=== PATIENT | male | born 1935 | race Hispanic/Latino ===

== ENCOUNTER 2020-03-14 06:45 | Inpatient (IN) | payer OTHER ==
[2020-03-14] MEDS ORDERED: ONDANSETRON 4 MG/2 ML VIAL ONE (07:27)
[2020-03-14] MEDS ORDERED: NA CHLORIDE 0.9% 1,000 ML ONE (07:27)
[2020-03-14 07:48] LABS: Absolute Lymphocytes (CBC) 0.5 K/uL (0.7-4.9); Basophils % 0.3 % (0-1.3); Hematocrit 42.4 % (39.6-49.0); Lymphocytes % 6.5 % (15.3-44.8); MPV 8.5 fL (7.6-11.3); RBC Red Blood Cell Count 4.46 M/uL (4.33-5.43)
[2020-03-14 08:01] LABS: ALT/SGPT 16 U/L (12-78); AST/SGOT 16 U/L (15-37); Albumin 3.2 g/dL (3.4-5.0); Alkaline Phosphatase 65 U/L (45-117); BUN Blood Urea Nitrogen 13 mg/dL (7-18); Bicarbonate 22 mmol/L (21-32); Bilirubin Direct 0.4 mg/dL (0-0.2); Bilirubin Total 3.1 mg/dL (0.2-1.0); Glucose Level 120 mg/dL (74-106); Lipase 51 U/L (73-393); Protein, Total 6.7 g/dL (6.4-8.2); Sodium Level 129 mmol/L (136-145)
--- NOTE | 2020-03-14 09:18 | RAD REPORT ---
EXAM DESCRIPTION: CTAbdomen Pelvis W Contrast - 03/14/2020 8:44 am CLINICAL HISTORY: Abdominal pain. ABD PAIN COMPARISON: <Comparisons> TECHNIQUE: Biphasic CT imaging of the abdomen and pelvis was performed with 100 ml non-ionic IV cont rast. All CT scans are performed using dose optimization technique as appropriate and may include automated exposure control or mA/KV adjustment according to patient size. FINDINGS: Trace right pleural effusion. The liver, spleen, pancreas, adrenal glands and kidneys are within normal limits. Several dilated and thickened small bowel loops are seen in the central lower abdomen measuring up to 3 cm. No pneumatosis evident. Mild free fluid is seen in the abdomen and pelvis. No free air. No abs cess seen. The appendix is normal. Moderate stool is present in the colon. No evidence of significant lymphadenopathy. Bilateral fat containing inguinal hernias, slightly larger on the left. No suspicious bony findings. IMPRESSION: Several dilated and thickened small bowel loops in the mid and lower abdomen are noted. Primary differential consideration would include infectious or inflammatory enteritis versus early de veloping mechanical small-bowel obstruction. Mild free fluid is seen in the abdomen and pelvis with a trace right pleural effusion. Moderate retained stool throughout the colon.
[2020-03-14 09:24] LABS: Urine Blood NEGATIVE (NEG); Urine Glucose NEGATIVE (NEG); Urine Protein NEGATIVE (NEG)
--- NOTE | 2020-03-14 10:06 | ER ---
Nurse's Notes [facility] Name: Denny Longo Age: 84 yrs Sex: Male : 1935 Arrival Date: 03/14/2020 Time: 06:48 Bed 8 Private MD: Diagnosis: Other and unspecified noninfective gastroenteritis and colitis;Constipation, unspecified Presentation: 03/14 07:00 Chief complaint: Spouse and/or significant other states: He has been complaining that sg his stomach has been hurting him for several days, reports that it has also been giving him nausea, he is very hard of hearing so make sure that they speak to him loudly and slowly when hes in the back without me. Coronavirus screen: Proceed with normal triage. Ebola Screen: Patient negative for fever greater than or equal to 101.5 degrees Fahrenheit, and additional compatible Ebola Virus Disease symptoms Patient denies exposure to infectious person. Patient denies travel to an Ebola-affected area in the 21 days before illness onset. No symptoms or risks identified at this time. Initial Sepsis Screen: Does the patient meet any 2 criteria? No. Patient's initial sepsis screen is negative. Does the patient have a suspected source of infection? No. Patient's initial sepsis screen is negative. Risk Assessment: Do you want to hurt yourself or someone else? Patient reports no desire to harm self or others. Onset of symptoms was March 14, 2020. Care prior to arrival: None. Transition of care: patient was not received from another setting of care. 07:00 Acuity: SANTA 3 sg 07:00 Method Of Arrival: Ambulatory sg Historical: - Allergies: 07:44 No Known Allergies; sv - Home Meds: 07:44 amlodipine-benazepril 5-40 mg oral cap [Active]; metoprolol succinate 100 mg oral Tb24 sv [Active]; tamsulosin 0.4 mg oral cp24 [Active]; levothyroxine 25 mcg tab [Active]; AREDS 2 [Active]; Vitamin B-12 Oral [Active]; Vitamin D3 oral oral [Active]; - PMHx: 07:44 Hypertension; Thyroid problem; sv - Immunization history:: Adult Immunizations up to date. - Social history:: Smoking status: Patient denies any tobacco usage or history of. Smoking status: Patient/guardian denies using alcohol, street drugs, The patient lives with family. - Family history:: not pertinent. Screenin:45 Abuse screen: Denies threats or abuse. Denies injuries from another. Nutritional sv screening: No deficits noted. Tuberculosis screening: No symptoms or risk factors identified. Fall Risk None identified. Assessment: 07:25 General: Appears in no apparent distress. comfortable, well groomed, well developed, sv Behavior is calm, cooperative, appropriate for age. Pain: Complains of pain in epigastric area Pain currently is 5 out of 10 on a pain scale. Pain began 2-3 days ago. Is intermittent, Also complains of constipation. Neuro: Level of Consciousness is awake, alert, obeys commands, Oriented to person, place, time, situation, Moves all extremities. Full function Gait is steady, Speech is normal. Respiratory: Airway is patent Respiratory effort is even, unlabored, Respiratory pattern is regular, symmetrical. GI: Last BM was March 11, 2020. Abd is soft and non tender X 4 quads. Reports constipation, nausea, that his stomach was "sticking out" the other day but went back down. Derm: Skin is intact, Skin is pink, warm \\T\\ dry. Musculoskeletal: Range of motion: intact in all extremities. 08:50 Reassessment: Patient appears in no apparent distress at this time. No changes from sv previously documented assessment. Patient and/or family updated on plan of care and expected duration. Pain level reassessed. Patient is alert, oriented x 3, equal unlabored respirations, skin warm/dry/pink. 10:48 Reassessment: Patient appears in no apparent distress at this time. No changes from sv previously documented assessment. Patient and/or family updated on plan of care and expected duration. Pain level reassessed. Patient is alert, oriented x 3, equal unlabored respirations, skin warm/dry/pink. Vital Signs: 07:00 BP 161 / 76; Pulse 87; Resp 16; Temp 98; Pulse Ox 97% ; sv 07:30 BP 171 / 69; Pulse 71; Resp 16; Pulse Ox 98% ; sv 08:23 BP 170 / 70; Pulse 80; Resp 16; Pulse Ox 98% ; sv 09:04 BP 175 / 90; Pulse 94; Resp 16; Pulse Ox 99% ; sv 10:35 BP 188 / 78; Pulse 91; Resp 18; Pulse Ox 99% ; sv ED Course: 06:48 Patient arrived in ED. ag3 06:49 Arm band placed on. sg 07:07 Triage completed. sg 07:07 Judy Warren MD is Attending Physician. ma2 07:15 Charlene Franks, CHAY is Primary Nurse. sv 07:[address] Scan. sv 07:25 Patient has correct armband on for positive identification. Placed in gown. Bed in low sv position. Call light in reach. Pulse ox on. NIBP on. Door closed. Head of bed elevated. 07:25 Inserted saline lock: 20 gauge in right forearm, using aseptic technique. Blood sv collected. Flushed right forearm with 5 ml normal saline. 07:32 Basic Metabolic Panel Sent. sv 07:32 Hepatic Function Sent. sv 07:32 Lipase Sent. sv 08:[address] Scan. sv 08:44 CT Abd/Pelvis - IV Contrast Only In Process Unspecified. EDMS 08:44 CT completed. Patient tolerated procedure well. Patient moved back from CT. bq 10:05 Butch Masters MD is Hospitalizing Provider. ma2 10:15 Awaiting bed assignment. sv 10:47 No provider procedures requiring assistance completed. Patient admitted, IV remains in sv place. intact. Administered Medications: 07:31 Drug: NS 0.9% 1000 ml Route: IV; Rate: 1 bolus; Site: right forearm; sv 08:29 Follow up: Response: No adverse reaction; IV Status: Completed infusion; IV Intake: sv 1000ml 07:31 Drug: Zofran (Ondansetron) 4 mg Route: IVP; Site: right forearm; sv 08:29 Follow up: Response: No adverse reaction; Marked relief of symptoms sv 10:30 Drug: Rocephin 1 grams Route: IV; Rate: calculated rate; Site: right forearm; sv 10:32 Follow up: Response: No adverse reaction; IV Status: Completed infusion; IV Intake: 10mlsv 10:35 Drug: Flagyl 500 mg Volume: 100 ml; Route: IVPB; Rate: 200 ml/hr; Infused Over: 30 sv mins; Site: right forearm; 11:03 Follow up: Response: No adverse reaction; IV Status: Infusion continued upon admission sv Intake: 08:29 IV: 1000ml; Total: 1000ml. sv 10:32 IV: 10ml; Total: 1010ml. sv Outcome: 10:05 Decision to Hospitalize by Provider. ma2 10:47 Admitted to Med/surg accompanied by tech, via wheelchair, room 211, with chart, Report sv called to Elen CARTWRIGHT 10:47 Condition: stable 10:47 Instructed on the need for admit. 11:02 Patient left the ED. sv Signatures: Dispatcher [employer] Charlene Sahni RN RN sv Gay, Steven, RN RN sg Quilty, Betty bq Alzahri, Mohammad, MD MD vt2 Camryn Castle 3
--- NOTE | 2020-03-14 10:06 | EDPHYS ---
Physician Documentation [facility] Name: Denyn Longo Age: 84 yrs Sex: Male : 1935 Arrival Date: 03/14/2020 Time: 06:48 Bed 8 Private MD: ED Physician Judy Warren HPI: 03/14 10:00 This 84 yrs old Male presents to ER via Ambulatory with complaints of ma2 Abdominal Pain. 10:00 Associated signs and symptoms: Pertinent positives: constipation, Pertinent negatives: ma2 nausea and vomiting, blood in stools, fever, vomiting. The symptoms are described as crampy. Severity of pain: At its worst the pain was mild in the emergency department the pain is unchanged. The patient has not experienced similar symptoms in the past. Historical: - Allergies: 07:44 No Known Allergies; sv - Home Meds: 07:44 amlodipine-benazepril 5-40 mg oral cap [Active]; metoprolol succinate 100 mg oral Tb24 sv [Active]; tamsulosin 0.4 mg oral cp24 [Active]; levothyroxine 25 mcg tab [Active]; AREDS 2 [Active]; Vitamin B-12 Oral [Active]; Vitamin D3 oral oral [Active]; - PMHx: 07:44 Hypertension; Thyroid problem; sv - Immunization history:: Adult Immunizations up to date. - Social history:: Smoking status: Patient denies any tobacco usage or history of. Smoking status: Patient/guardian denies using alcohol, street drugs, The patient lives with family. - Family history:: not pertinent. ROS: 10:00 Constitutional: Negative for fever, chills, and weight loss. ma2 10:00 All other systems are negative. Exam: 10:00 Constitutional: This is a well developed, well nourished patient who is awake, alert, ma2 and in no acute distress. Chest/axilla: Normal chest wall appearance and motion. Nontender with no deformity. No lesions are appreciated. Cardiovascular: Regular rate and rhythm with a normal S1 and S2. No gallops, murmurs, or rubs. Normal PMI, no JVD. No pulse deficits. Respiratory: Lungs have equal breath sounds bilaterally, clear to auscultation and percussion. No rales, rhonchi or wheezes noted. No increased work of breathing, no retractions or nasal flaring. Abdomen/GI: Soft, non-tender, with normal bowel sounds. No distension or tympany. No guarding or rebound. No evidence of tenderness throughout. Skin: Warm, dry with normal turgor. Normal color with no rashes, no lesions, and no evidence of cellulitis. MS/ Extremity: Pulses equal, no cyanosis. Neurovascular intact. Full, normal range of motion. Vital Signs: 07:00 BP 161 / 76; Pulse 87; Resp 16; Temp 98; Pulse Ox 97% ; sv 07:30 BP 171 / 69; Pulse 71; Resp 16; Pulse Ox 98% ; sv 08:23 BP 170 / 70; Pulse 80; Resp 16; Pulse Ox 98% ; sv 09:04 BP 175 / 90; Pulse 94; Resp 16; Pulse Ox 99% ; sv 10:35 BP 188 / 78; Pulse 91; Resp 18; Pulse Ox 99% ; sv MDM: 07:07 Patient medically screened. ma2 10:00 Differential diagnosis: gastritis, gastroesophageal reflux disease, pancreatitis. Data ma2 reviewed: vital signs, nurses notes. Counseling: I had a detailed discussion with the patient and/or guardian regarding: the historical points, exam findings, and any diagnostic results supporting the discharge/admit diagnosis, the presence of at least one elevated blood pressure reading (>120/80) during this emergency department visit, the need for outpatient follow up. Response to treatment: the patient's symptoms have markedly improved after treatment. ED course: discussed with dr. dunlap who agree with plan to admit and re-evaluation and antibiotics he will see him . 10:12 ED course: patient had a smalll bowel movement, will admit for possible early partial ma2 small bowel obstruction discussed with dr. lott, i called dr. masters and left a voice note, called . 13:50 ED course: dr. masters did not call back, i called hospitalist oncall dr. carver who ma2 advised to admit to dr. Masters, dr. lott will see the patient as well . 03/14 07:08 Order name: Basic Metabolic Panel ma2 03/14 07:08 Order name: CBC with Diff; Complete Time: 09:33 nc2 03/14 07:08 Order name: Hepatic Function ma2 03/14 07:08 Order name: Lipase ma2 03/14 07:09 Order name: Basic Metabolic Panel; Complete Time: 09:33 EDMS 03/14 07:09 Order name: Liver (Hepatic) Function; Complete Time: 09:33 EDMS 03/14 07:09 Order name: Lipase; Complete Time: 09:33 EDMS 03/14 09:04 Order name: Urine Dipstick--Ancillary (enter results); Complete Time: 09:33 em1 03/14 10:13 Order name: Basic Metabolic Panel EDMS 03/14 10:13 Order name: Basic Metabolic Panel EDMS 03/14 10:13 Order name: Calcium Level EDMS 03/14 10:13 Order name: Calcium Level EDMS 03/14 10:13 Order name: CBC with Automated Diff EDMS 03/14 10:13 Order name: CBC with Automated Diff EDMS 03/14 07:08 Order name: IV Saline Lock; Complete Time: 07:32 ma2 03/14 07:08 Order name: Labs collected and sent; Complete Time: 07:32 ma2 03/14 07:08 Order name: Urine Dipstick-Ancillary (obtain specimen); Complete Time: 09:02 ma2 03/14 07:08 Order name: CT Abd/Pelvis - IV Contrast Only; Complete Time: 09:33 ma2 03/14 10:13 Order name: CONS Physician Consult EDWV 03/14 10:13 Order name: CONS Pharmacy Consult ED[facility] 03/14 10:13 Order name: Lipase ED[facility] 03/14 10:13 Order name: Lipase ED[facility] 03/14 10:13 Order name: Liver (Hepatic) Function EDWV 03/14 10:13 Order name: Liver (Hepatic) Function EDWV 03/14 10:13 Order name: Magnesium ED[facility] 03/14 10:13 Order name: Magnesium EDWV Administered Medications: 07:31 Drug: NS 0.9% 1000 ml Route: IV; Rate: 1 bolus; Site: right forearm; sv 08:29 Follow up: Response: No adverse reaction; IV Status: Completed infusion; IV Intake: sv 1000ml 07:31 Drug: Zofran (Ondansetron) 4 mg Route: IVP; Site: right forearm; sv 08:29 Follow up: Response: No adverse reaction; Marked relief of symptoms sv 10:30 Drug: Rocephin 1 grams Route: IV; Rate: calculated rate; Site: right forearm; sv 10:32 Follow up: Response: No adverse reaction; IV Status: Completed infusion; IV Intake: 10mlsv 10:35 Drug: Flagyl 500 mg Volume: 100 ml; Route: IVPB; Rate: 200 ml/hr; Infused Over: 30 sv mins; Site: right forearm; 11:03 Follow up: Response: No adverse reaction; IV Status: Infusion continued upon admission sv Disposition: 03/14/20 10:05 Hospitalization ordered by Butch Masters for Inpatient Admission. Preliminary diagnosis are Other and unspecified noninfective gastroenteritis and colitis, Constipation, unspecified. - Bed requested for Telemetry/MedSurg (Inpatient). - Status is Inpatient Admission. sv - Condition is Stable. - Problem is new. - Symptoms are unchanged. Signatures: Dispatcher [employer] EDMS Martina De Paz RN RN kl Verde, Stephanie, RN RN sv Gay, Steven, RN RN sg Alzahri, Mohammad, MD MD nc2 Corrections: (The following items were deleted from the chart) 10:33 10:05 Hospitalization Ordered by Butch Masters MD for Inpatient Admission. Preliminary kl diagnosis is Other and unspecified noninfective gastroenteritis and colitis; Constipation, unspecified. Bed requested for Telemetry/MedSurg (Inpatient). Status is Inpatient Admission. Condition is Stable. Problem is new. Symptoms are unchanged. ma2 11:02 10:33 03/14/2020 10:05 Hospitalization Ordered by Butch Masters MD for Inpatient sv Admission. Preliminary diagnosis is Other and unspecified noninfective gastroenteritis and colitis; Constipation, unspecified. Bed requested for Telemetry/MedSurg (Inpatient). Status is Inpatient Admission. Condition is Stable. Problem is new. Symptoms are unchanged. kl
[2020-03-14] MEDS ORDERED: ONDANSETRON 4 MG/2 ML VIAL IV PRN (10:08)
[2020-03-14] MEDS ORDERED: METRONIDAZOLE 500mg IVPB 500 MG/100 ML BAG IV ONE (10:33)
[2020-03-14] MEDS ORDERED: CEFTRIAXONE/SWI 1gm 1 GM/10 ML SYR ONE (10:33)
[2020-03-14] MEDS: INSULIN -REGULAR HUMAN 50 UNIT/0.5 ML ML SQ SCH ×2 (11:30→16:30)
[2020-03-14] MEDS ORDERED: METRONIDAZOLE 500mg IVPB 500 MG/100 ML BAG IV SCH ×2 (12:00→18:00)
[2020-03-14 13:38] VITALS: BMI 24.2
[2020-03-14] MEDS ORDERED: cloNIDine HCL 0.1 MG TAB PO PRN (15:55)
[2020-03-14] MEDS ORDERED: ACETAMINOPHEN 500 MG TAB ONE (16:34)
[2020-03-14] MEDS ORDERED: CEFOXITIN/SWI 2gm 2 GM/20 ML SYR IVP SCH (17:00)
--- NOTE | 2020-03-14 18:56 | RAD REPORT ---
EXAM DESCRIPTION: RAD - Abdomen W Erect - 03/14/2020 6:49 pm CLINICAL HISTORY: f/u SBO Pain COMPARISON: ABDOMEN W ERECT dated 10/08/2009; Abdomen Pelvis W Contrast dated 03/14/2020 FINDINGS: Several mildly dilated small bowel loops in the upper abdomen noted, appearing similar to recent CT study. No pneumoperitoneum seen. No pathologic calcification evident.
[2020-03-14] MEDS ORDERED: NACHLORIDE 0.45% 1,000 ML IV SCH (23:00)
[2020-03-15] MEDS: INSULIN -REGULAR HUMAN 50 UNIT/0.5 ML ML SQ SCH ×2 (05:47)
[2020-03-15 06:01] LABS: Hematocrit 38.3 % (39.6-49.0); MPV 8.8 fL (7.6-11.3)
[2020-03-15 06:02] LABS: Absolute Lymphocytes (CBC) 0.4 K/uL (0.7-4.9); Basophils % 0.2 % (0-1.3); Lymphocytes % 9.3 % (15.3-44.8)
[2020-03-15 06:31] LABS: ALT/SGPT 19 U/L (12-78); AST/SGOT 22 U/L (15-37); Albumin 2.8 g/dL (3.4-5.0); Alkaline Phosphatase 54 U/L (45-117); BUN Blood Urea Nitrogen 10 mg/dL (7-18); Bicarbonate 24 mmol/L (21-32); Bilirubin Direct 0.4 mg/dL (0-0.2); Bilirubin Total 1.9 mg/dL (0.2-1.0); Glucose Level 93 mg/dL (74-106); Lipase 147 U/L (73-393); Potassium 4.2 mmol/L (3.5-5.1); Protein, Total 5.8 g/dL (6.4-8.2); Sodium Level 128 mmol/L (136-145)
--- NOTE | 2020-03-15 06:55 | P.SSS ---
Patient History Date of Service: 03/15/20 Reason for admission: NO BOWEL MOVEMENT. History of Present Illness: MR. BARNES IS 84 YEARS OLD GM WITH HISTORY OF HTN AND COLON CANCER COMES WITH NO BM FOR 3 DAYS AND ABDOMEN DISTENSION. AFTER CT SCAN TODAY HE HADA BM. I SAW HIM LAST PM, FOUND THAT HE STILL HAD DISTENSION THAT WAS MILD BUT ABDOMEN IS SOFT. I ASKED NURSES TO REPEAT X RAY AND GIVE HIM SOAP SUDDS ENEMA. WITH THE ENEMA HE HAD 4 GOOD BM. HE WILL STAY OVERNIGHT AND AFTER VISIT WITH DR. DE LA O HE MAY GO HOME. Allergies No Known Allergies Allergy (Verified 03/14/20 11:26) Home medications list reviewed: Yes Home Medications: Amlodipine Bes/Olmesartan Med [Amlodipine-Olmesartan 5-40 mg] 1 tab PO DAILY 03/14/20 Cholecalciferol (Vitamin D3) [Vitamin D3] 1 tab PO DAILY 03/14/20 Cyanocobalamin (Vitamin B-12) [Vitamin B12] 1,000 mcg PO DAILY 03/14/20 Levothyroxine Sodium 1 tab PO AC 03/14/20 Metoprolol Succinate [Toprol Xl] 100 mg PO DAILY 03/14/20 Tamsulosin HCl [Flomax] 1 tab PO DAILY 03/14/20 - Past Medical/Surgical History Has patient received pneumonia vaccine in the past: Yes Diabetic: No -: htn -: HISTORY OF COLON CANCER, MANY YEARS AGO. SURGERY BY DR WILSON AND KURT . -: B12 DEFICIENCY -: OCULAR MYESTHENIA -: BPH -: AORTIC REGURGITATION- MILD -: HYPOTHYROIDISM -: PARTIAL COLECTOMY L SIDE- DR MAR- YEARS AGO. - Family History Father History Unknown: Yes - Social History Smoking Status: Never smoker Alcohol use: Yes CD- Drugs: No Caffeine use: Yes Place of Residence: Home Review of Systems 10-point ROS is otherwise unremarkable Physical Examination - Vital Signs Temperature: 97.0 F Blood Pressure: 140/62 Pulse: 79 Respirations: 14 Pulse Ox (%): 96 - Physical Exam General: Alert, In no apparent distress HEENT: Atraumatic, PERRLA, Mucous membr. moist/pink, EOMI, Sclerae nonicteric Neck: Supple, 2+ carotid pulse no bruit, No LAD, Without JVD or thyroid abnormality Respiratory: Clear to auscultation bilaterally, Normal air movement Cardiovascular: Regular rate/rhythm, Normal S1 S2 Gastrointestinal: Normal bowel sounds, No tenderness, No masses, No rebound, No guarding, Other (MILD UPPER ABDOMEN DISTENSION. ), Distended Musculoskeletal: No tenderness Integumentary: No rashes Neurological: Normal gait, Normal speech, Normal strength at 5/5 x4 extr, Normal tone, Normal affect, Other (SEVERE HEARING LOSS. WITH MY MASK ON HE IS NOT ABLE TO READ LIPS.) Lymphatics: No axilla or inguinal lymphadenopathy - Studies Laboratory Data (last 24 hrs) 03/14/20 07:25: WBC 7.5, Hgb 14.4, Hct 42.4, Plt Count 193 03/14/20 07:25: Sodium 129 L, Potassium 4.0, BUN 13, Creatinine 0.78, Glucose 120 H, Total Bilirubin 3.1 H, AST 16, ALT 16, Alkaline Phosphatase 65, Lipase 51 L - Diagnosis (Problem(s)) (1) Partial bowel obstruction Current Visit: Yes Status: Acute Plan: HE IS ALREADY HAVING GOOD BM. I WILL REDO X RAY TOAY. HE MAY GO HOME TODAY AFTER DR IRVING SEES HIM (2) Constipation Current Visit: Yes Status: Acute Plan: GOOD FIBER BUT GRINDED DIET. MIRLAAX DAILY. 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
[2020-03-15] MEDS ORDERED: HOME MED 1 EA UNK (Levothyroxine Sodium [Levothyroxine Sodium] 1 TAB) PO SCH (07:30)
[2020-03-15 07:56] LABS: Blood Morphology Comment NOT SEEN (NOT SEEN); Platelet Estimate ADEQ
--- NOTE | 2020-03-15 08:08 | RAD REPORT ---
EXAM DESCRIPTION: RAD - Abdomen W Erect - 03/15/2020 7:44 am CLINICAL HISTORY: f/u SBO COMPARISON: Abdomen W Erect dated 03/14/2020; Abdomen Pelvis W Contrast dated 03/14/2020 TECHNIQUE: Supine and upright views of the abdomen were obtained. FINDINGS: Air and stool are identifiable in nondilated colon. Small bowel loops are prominent but im proved. No free air or pneumatosis. No suspicious calcifications. IMPRESSION: Improvement in the small bowel obstruction pattern compared with the March 14 study.
[2020-03-15] MEDS ORDERED: CYANOCOBALAMIN 1000 MCG PO SCH (09:00)
[2020-03-15] MEDS ORDERED: OLMESARTAN MED PO SCH (09:00)
[2020-03-15] MEDS ORDERED: TAMSULOSIN HCL PO SCH (09:00)
[2020-03-15] MEDS ORDERED: HOME MED 1 EA UNK (Cholecalciferol (Vitamin D3) [Vitamin D3] 1 TAB) PO SCH (09:00)
[2020-03-15] MEDS ORDERED: AMLODIPINE BES PO SCH (09:00)
[2020-03-15] MEDS ORDERED: HOME MED 1 EA UNK (Metoprolol Succinate [Toprol Xl] 100 MG) PO SCH (09:00)
[2020-03-15 09:15] VITALS: TEMP 98.1
[2020-03-15 09:19] VITALS: O2SAT 97
[2020-03-15 10:39] VITALS: BP 113/64
== END 2020-03-15 11:20 | disposition home or self-care (01) | DRG 390 ==
LOC: ER 06:45 → ERHOLD 10:09 → 2ND 10:52
PROVIDERS: ADMIT Internal Medicine; ATTEND Internal Medicine
DX: K56.600 Partial intestinal obstruction, unspecified as to cause (principal); I10 Essential (primary) hypertension; K59.00 Constipation, unspecified; E03.9 Hypothyroidism, unspecified; H90.3 Sensorineural hearing loss, bilateral; Z85.038 Personal history of other malignant neoplasm of large intestine; Z79.890 Hormone replacement therapy; Z90.49 Acquired absence of other specified parts of digestive tract; Z79.899 Other long term (current) drug therapy
CPT/HCPCS: 36415; 74019; 74177; 80048; 80076; 81003; 82947; 83690; 83735; 85025; 94760; 96361; 96365; 96375; 99285; J0696; J2405; J7030; Q9967; U0002

== ENCOUNTER 2020-06-17 02:34 | Emergency (ER) | payer OTHER ==
[2020-06-17] MEDS ORDERED: NA CHLORIDE 0.9% 1,000 ML ONE (03:36)
[2020-06-17] MEDS ORDERED: MORPHINE 4 MG/ML SYR ONE (03:36)
[2020-06-17] MEDS ORDERED: ONDANSETRON 4 MG/2 ML VIAL ONE (03:36)
[2020-06-17 03:55] LABS: Absolute Lymphocytes (CBC) 0.4 K/uL (0.7-4.9); Basophils % 0.1 % (0-1.3); Hematocrit 42.8 % (39.6-49.0); Lymphocytes % 3.6 % (15.3-44.8); MPV 8.8 fL (7.6-11.3); RBC Red Blood Cell Count 4.55 M/uL (4.33-5.43)
[2020-06-17 04:18] LABS: Albumin 3.6 g/dL (3.4-5.0); Bilirubin Direct 0.4 mg/dL (0-0.2); Bilirubin Total 1.9 mg/dL (0.2-1.0); Potassium 4.1 mmol/L (3.5-5.1); Protein, Total 7.2 g/dL (6.4-8.2)
--- NOTE | 2020-06-17 04:53 | EDPHYS ---
Physician Documentation [facility] Name: Denny Longo Age: 84 yrs Sex: Male : 1935 Arrival Date: 06/17/2020 Time: 02:38 Bed 5 Private MD: ED Physician Tha Rodríguez HPI: 06/17 03:18 This 84 yrs old Male presents to ER via Ambulatory with complaints of pkl Abdominal Pain, Nausea. 03:18 The patient presents with abdominal pain in the upper abdomen. Onset: The pkl symptoms/episode began/occurred 3 hour(s) ago. Associated signs and symptoms: Pertinent positives: nausea. Historical: - Allergies: 02:52 No Known Allergies; rv - PMHx: 02:52 Hypertension; Thyroid problem; rv - Immunization history:: Adult Immunizations up to date. - Social history:: Smoking status: Patient denies any tobacco usage or history of. ROS: 03:18 Eyes: Negative for injury, pain, redness, and discharge, ENT: Negative for injury, pkl pain, and discharge, Neck: Negative for injury, pain, and swelling, Cardiovascular: Negative for chest pain, palpitations, and edema, Respiratory: Negative for shortness of breath, cough, wheezing, and pleuritic chest pain. 03:18 Abdomen/GI: Positive for abdominal pain, nausea, of the upper abdomen. 03:18 Back: Negative for acute changes. 03:18 : Negative for urinary symptoms. 03:18 MS/extremity: Negative for acute changes. 03:18 Skin: Negative for rash. 03:18 Neuro: Negative for altered mental status. Exam: 03:18 Head/Face: Normocephalic, atraumatic. Eyes: Pupils equal round and reactive to light, pkl extra-ocular motions intact. Lids and lashes normal. Conjunctiva and sclera are non-icteric and not injected. Cornea within normal limits. Periorbital areas with no swelling, redness, or edema. ENT: Nares patent. No nasal discharge, no septal abnormalities noted. Tympanic membranes are normal and external auditory canals are clear. Oropharynx with no redness, swelling, or masses, exudates, or evidence of obstruction, uvula midline. Mucous membranes moist. Neck: Trachea midline, no thyromegaly or masses palpated, and no cervical lymphadenopathy. Supple, full range of motion without nuchal rigidity, or vertebral point tenderness. No Meningismus. Chest/axilla: Normal chest wall appearance and motion. Nontender with no deformity. No lesions are appreciated. Cardiovascular: Regular rate and rhythm with a normal S1 and S2. No gallops, murmurs, or rubs. Normal PMI, no JVD. No pulse deficits. Respiratory: Lungs have equal breath sounds bilaterally, clear to auscultation and percussion. No rales, rhonchi or wheezes noted. No increased work of breathing, no retractions or nasal flaring. 03:18 Abdomen/GI: Palpation: soft, mild abdominal tenderness, in the right upper quadrant and left upper quadrant. 03:18 Back: Exam negative for acute changes. 03:18 : Exam negative for acute changes. 03:18 Musculoskeletal/extremity: Exam is negative for acute changes. 03:18 Skin: Exam negative for rash. 03:18 Neuro: Orientation: is normal, Mentation: is normal, Cranial nerves: grossly normal, Motor: is normal. Vital Signs: 02:50 BP 184 / 87; Pulse 93; Resp 18; Temp 97.6; Pulse Ox 100% ; Weight 63.5 kg; Height 5 ft. rv 6 in. (167.64 cm); Pain 8/10; 03:30 BP 160 / 64; Pulse 85; Resp 16; Pulse Ox 97% on R/A; rv 04:00 BP 141 / 53; Pulse 77; Resp 16; Pulse Ox 98% on R/A; rv 04:42 BP 159 / 72; Pulse 78; Resp 17; Pulse Ox 100% ; rv 02:50 Body Mass Index 22.60 (63.50 kg, 167.64 cm) rv MDM: 02:45 Patient medically screened. pkl 04:46 Data reviewed: vital signs, nurses notes, lab test result(s), radiologic studies, CT pkl scan. ED course: Patient feeling better. Abdominal pain resolved. Discussed lab. and CT Scan results with patient and . Patient does not want to be admitted at this time. Want to go home and follow up with Dr. Masters. Advised to return if abdominal pain recurs or is worse. Patient understood instructions. Patient sign AMA. 06/17 03:17 Order name: Basic Metabolic Panel; Complete Time: 04:44 pkl 06/17 03:17 Order name: CBC with Diff; Complete Time: 05:34 pkl 06/17 03:17 Order name: Hepatic Function; Complete Time: 04:44 pkl 06/17 03:17 Order name: Lipase; Complete Time: 04:44 pkl 06/17 03:17 Order name: Creatinine, Serum pkl 06/17 03:46 Order name: CREATININE WHOLE BLOOD; Complete Time: 03:56 EDMS 06/17 03:17 Order name: IV Saline Lock; Complete Time: 03:34 pkl 06/17 03:17 Order name: Labs collected and sent; Complete Time: 03:45 pkl 06/17 03:17 Order name: CT Abd/Pelvis - IV Contrast Only pkl 06/17 04:11 Order name: Manual Differential; Complete Time: 05:34 EDMS Administered Medications: 03:33 Drug: NS 0.9% 1000 ml Route: IV; Rate: 125 ml/hr; Site: right antecubital; rv 03:33 Drug: morphine 4 mg {Note: RASS, 0.} Route: IVP; Site: right antecubital; rv 04:45 Follow up: Response: No adverse reaction; Marked relief of symptoms; Pain is decreased; rv RASS: Alert and Calm (0) 03:33 Drug: Zofran (Ondansetron) 4 mg Route: IVP; Site: right antecubital; rv 04:44 Follow up: Response: No adverse reaction rv Disposition: 06/17/20 04:52 Patient has left against medical advice. Impression: Abdominal pain. Low grade partial small bowel obstruction versus ileus. Cholelithiasis. - Patients states they are going to Home. - Condition is Stable. - Prescriptions for Zofran 4 mg Oral Tablet - take 1 tablet by ORAL route every 12 hours As needed; 10 tablet. Follow up: Butch Masters MD; When: 1 - 2 days; Reason: Re-evaluation by your physician. - Problem is new. - Symptoms have improved. Signatures: Dispatcher [employer] EDMS Tha Rodríguez MD MD pkl Nick Grayson, RN RN rv Corrections: (The following items were deleted from the chart) 04:54 04:52 06/17/2020 04:52 Patients has left against medical advice. Patient states they pkl are going to Home. Condition is Stable. Follow up: Butch Masters; When: 1 - 2 days; Reason: Re-evaluation by your physician. Problem is new. Symptoms have improved. pkl 04:57 04:54 06/17/2020 04:52 Patients has left against medical advice. Impression: Abdominal pkl pain. Low grade partial small bowel obstruction versus ileus. Patient states they are going to Home. Condition is Stable. Follow up: Butch Masters; When: 1 - 2 days; Reason: Re-evaluation by your physician. Problem is new. Symptoms have improved. pkl 05:02 04:57 06/17/2020 04:52 Patients has left against medical advice. Impression: Abdominal rv pain. Low grade partial small bowel obstruction versus ileus. Cholelithiasis. Patient states they are going to Home. Condition is Stable. Prescriptions for Zofran 4 mg Oral Tablet - take 1 tablet by ORAL route every 12 hours As needed; 10 tabletFollow up: Butch Masters; When: 1 - 2 days; Reason: Re-evaluation by your physician. Problem is new. Symptoms have improved. pkl
--- NOTE | 2020-06-17 04:53 | ER ---
Nurse's Notes [facility] Name: Denny Longo Age: 84 yrs Sex: Male : 1935 Arrival Date: 06/17/2020 Time: 02:38 Bed 5 Private MD: Diagnosis: Abdominal pain. Low grade partial small bowel obstruction versus ileus. Cholelithiasis Presentation: 06/17 02:50 Chief complaint: Patient states: undescribable pain, epigastric area, 8/10. non rv radiating. with nausea. without vomiting, diarrhea, constipation. able to eat and drink. Coronavirus screen: At this time, the client does not indicate any symptoms associated with coronavirus-19. Ebola Screen: No symptoms or risks identified at this time. Initial Sepsis Screen: Does the patient meet any 2 criteria? No. Patient's initial sepsis screen is negative. Does the patient have a suspected source of infection? No. Patient's initial sepsis screen is negative. Risk Assessment: Do you want to hurt yourself or someone else? Patient reports no desire to harm self or others. Onset of symptoms was June 17, 2020 at 00:00. 02:50 Method Of Arrival: Ambulatory rv 02:50 Acuity: SANTA 3 rv Triage Assessment: 02:52 General: Appears comfortable, Behavior is calm, cooperative. Pain: Complains of pain in rv epigastric area Pain does not radiate. Pain currently is 8 out of 10 on a pain scale. EENT: No signs and/or symptoms were reported regarding the EENT system. Neuro: Level of Consciousness is awake, alert, obeys commands, Oriented to person, place, time, situation. Cardiovascular: Patient's skin is warm and dry. Respiratory: Airway is patent. GI: Abdomen is flat, non-distended. Derm: Skin is intact. Historical: - Allergies: 02:52 No Known Allergies; rv - PMHx: 02:52 Hypertension; Thyroid problem; rv - Immunization history:: Adult Immunizations up to date. - Social history:: Smoking status: Patient denies any tobacco usage or history of. Screenin:53 Abuse screen: Denies threats or abuse. Denies injuries from another. Nutritional rv screening: No deficits noted. Tuberculosis screening: No symptoms or risk factors identified. Fall Risk None identified. Assessment: 02:53 GI: Bowel sounds present X 4 quads. Abd is soft and non tender X 4 quads. rv 04:43 Reassessment: PATIENT FEELING BETTER. PAIN IS DECREASED. DR ERVIN EXPLAINED THE TEST rv RESULTS TO THE PATIENT AND FAMILY. VERBALIZED UNDERSTANDING. Patient states feeling better. Patient states symptoms have improved. Vital Signs: 02:50 BP 184 / 87; Pulse 93; Resp 18; Temp 97.6; Pulse Ox 100% ; Weight 63.5 kg; Height 5 ft. rv 6 in. (167.64 cm); Pain 8/10; 03:30 BP 160 / 64; Pulse 85; Resp 16; Pulse Ox 97% on R/A; rv 04:00 BP 141 / 53; Pulse 77; Resp 16; Pulse Ox 98% on R/A; rv 04:42 BP 159 / 72; Pulse 78; Resp 17; Pulse Ox 100% ; rv 02:50 Body Mass Index 22.60 (63.50 kg, 167.64 cm) rv ED Course: 02:38 Patient arrived in ED. cl3 02:39 Nick Grayson, CHAY is Primary Nurse. rv 02:45 Tha Ervin MD is Attending Physician. pkl 02:52 Triage completed. rv 02:53 Arm band placed on right wrist. Patient placed in the treatment room, on a stretcher, rv Patient notified of wait time. 02:53 Patient has correct armband on for positive identification. Pulse ox on. NIBP on. rv 03:34 Initial lab(s) drawn, by me, sent to lab. Inserted saline lock: 20 gauge in right rv antecubital area, using aseptic technique. Blood collected. 04:03 CT Abd/Pelvis - IV Contrast Only In Process Unspecified. EDMS 04:52 Butch Masters MD is Referral Physician. pkl 05:01 No provider procedures requiring assistance completed. IV discontinued, intact, rv bleeding controlled, No redness/swelling at site. Pressure dressing applied. Administered Medications: 03:33 Drug: NS 0.9% 1000 ml Route: IV; Rate: 125 ml/hr; Site: right antecubital; rv 03:33 Drug: morphine 4 mg {Note: RASS, 0.} Route: IVP; Site: right antecubital; rv 04:45 Follow up: Response: No adverse reaction; Marked relief of symptoms; Pain is decreased; rv RASS: Alert and Calm (0) 03:33 Drug: Zofran (Ondansetron) 4 mg Route: IVP; Site: right antecubital; rv 04:44 Follow up: Response: No adverse reaction rv Outcome: 05:02 AMA AMA form signed rv 05:02 Condition: improved 05:02 Discharge instructions given to patient, family, Instructed on discharge instructions, follow up and referral plans. medication usage, Demonstrated understanding of instructions, follow-up care, medications, Prescriptions given X 1. 05:02 Patient left the ED. rv Signatures: Dispatcher [employer] EDTha Bernstein MD MD pkl Nick Grayson RN RN Thomas Robbins cl3
[2020-06-17 04:58] LABS: Blood Morphology Comment NOT SEEN (NOT SEEN); Platelet Estimate ADEQ
[2020-06-17 05:09] VITALS: TEMP 97.6
[2020-06-17 05:12] VITALS: BP 159/72; O2SAT 100
--- NOTE | 2020-06-17 10:45 | RAD REPORT ---
EXAM DESCRIPTION: CT - Abdomen Pelvis W Contrast - 06/17/2020 7:07 am ADDENDUM #1 Addendum: Prior CT dated March 14, 2020 available for review. Soft tissue density medial to the right k [place]ney on the current study is decreased in size from March 14, 2020. On the prior exam, it measured 3.5 x 2.4 x 3.1 cm, currently 2.9 x 1.7 x 2.7 cm. Suspect this represents an enlarged lymph node. Electronically signed by: Charlene Chris MD 06/17/2020 7:38 AM CDT End of Addendum EXAM: CT Abdomen and Pelvis With Intravenous Contrast CLINICAL HISTORY: The patient is 84 years old and is Male; ABD PAIN TECHNIQUE: Axial computed tomography images of the abdomen and pelvis with intravenous contrast. S agittal and coronal reformatted images were created and reviewed. This CT exam was performed using one or more of the following dose reduction techniques: automated exposure control, adjustment of t he mA and/or kV according to patient size, and/or use of iterative reconstruction technique. COMPARISON: No relevant prior studies available. FINDINGS: Lung bases: Unremarkable. No mass. No consolidation. ABDOMEN: Liver: Unremarkable. No mass. Gallbladder and bile ducts: Cholelithiasis. No CT evidence of cholecystitis. No ductal dilation. Pancreas: No findings to suggest acute pancreatitis. No mass visualized. No ductal dilation. Spleen: Unremarkable. No splenomegaly. Adrenals: Unremarkable. No mass. Kidneys and ureters: Unremarkable. No solid mass. No hydronephrosis. Stomach and bowel: Colonic diverticulosis. Previous rectal resection/anastomosis. Stomach is mildly distended with fluid. Multiple mildly distended, fluid-filled small bowel loops. There is equivocal small bowel wa ll thickening in the pelvis at the transition zone in the deep pelvis. PELVIS: Appendix: The visualized appendix is normal. No pericecal inflammation to suggest acute appendic itis. Bladder: Unremarkable. No mass. Reproductive: Enlarged prostate gland. ABDOMEN and PELVIS: Intraperitoneal space: Small amount of free fluid in the pelvis. No free air. No abscess. Bones/joints: Degenerative changes in the spine and SI joints. No acute fracture. No dislocation. Soft tissues: Bilateral inguinal hernias containing fat only. No evidence of edema/incarceration . Vasculature: Unremarkable. No abdominal aortic aneurysm. Lymph nodes: 2.9 x 1.7 x 2.9 cm soft tissue density, medial to the right kidney, possibly enlarg ed lymph node. IMPRESSION: 1. Low-grade partial small bowel obstruction versus ileus. 2. Cholelithiasis. No CT evidence of cholecystitis. 3. Colonic diverticulosis. Previous rectal resection/anastomosis. 4. Enlarged prostate gland. 5. 2.9 x 1.7 x 2.9 cm soft tissue density, medial to the right kidney, possibly enlarged lymph node . Prior CT abdomen pelvis from March 14, 2020 not available for comparison at this time. An addendum wi ll be issued, if/when the prior images are available for review. Electronically signed by: Charlene Chris MD 06/17/2020 4:27 AM CDT Due to temporary technical issues with the PACS/Fluency reporting system, reports are being signed by the in house radiologist without review as a courtesy to ensure prompt reporting. The interpreting r adiologist is fully responsible for the content of the report.
== END 2020-06-17 05:02 | disposition left against medical advice (07) ==
LOC: ER 02:34
DX: K80.20 Calculus of gallbladder without cholecystitis without obstruction (principal); K56.600 Partial intestinal obstruction, unspecified as to cause; K56.7 Ileus, unspecified; I10 Essential (primary) hypertension
CPT/HCPCS: 85025; 80048; 36415; 82565; 80076; 83690; 74177; 96375; 96374; 99284; Q9967; J7030; J2405

== ENCOUNTER 2020-10-30 09:28 | Inpatient (IN) | payer OTHER ==
--- NOTE | 2020-10-30 10:22 | ER ---
Nurse's Notes [facility] Name: Denny Longo Jr Age: 85 yrs Sex: Male : 1935 Arrival Date: 10/30/2020 Time: 09:29 Bed Direct Admit Private MD: Diagnosis: Dehydration Presentation: 10/30 10:15 Chief complaint: SENT FROM PCP FOR DEHYDRATION. Coronavirus screen: At this time, the bp client does not indicate any symptoms associated with coronavirus-19. Ebola Screen: No symptoms or risks identified at this time. Initial Sepsis Screen: Does the patient meet any 2 criteria? No. Patient's initial sepsis screen is negative. Does the patient have a suspected source of infection? No. Patient's initial sepsis screen is negative. Risk Assessment: Do you want to hurt yourself or someone else? Patient reports no desire to harm self or others. Onset of symptoms is unknown. 10:15 Method Of Arrival: Ambulatory bp 10:15 Acuity: SANTA 3 bp Triage Assessment: 10:15 General: Appears in no apparent distress. comfortable, Behavior is calm, cooperative, bp appropriate for age. General: [facility]. Pain: Denies pain. Historical: - Allergies: 10:15 No Known Allergies; bp - Home Meds: 10:15 amlodipine-benazepril 5-40 mg Oral cap [Active]; areds 2 [Active]; levothyroxine 25 mcg bp tab [Active]; metoprolol succinate 100 mg Oral Tb24 [Active]; tamsulosin 0.4 mg Oral cp24 [Active]; Vitamin B-12 Oral [Active]; Vitamin D3 Oral [Active]; - PMHx: 10:15 Hypertension; Thyroid problem; bp - Immunization history:: Adult Immunizations up to date. - Social history:: Smoking status: Patient denies any tobacco usage or history of. Screenin:15 Abuse screen: Denies threats or abuse. Denies injuries from another. Nutritional bp screening: No deficits noted. Tuberculosis screening: No symptoms or risk factors identified. Fall Risk None identified. Assessment: 10:21 General: DIRECT ADMIT, SEE [facility]. bp Vital Signs: 10:15 bp 10:15 [facility] Course: :29 Patient arrived in ED. as 10:15 Arm band placed on. bp 10:15 Patient has correct armband on for positive identification. Bed in low position. Call bp light in reach. Side rails up X2. 10:15 No provider procedures requiring assistance completed. bp 10:15 Inserted saline lock: 20 gauge in right forearm, using aseptic technique. Patient bp admitted, IV remains in place. 10:20 Butch Masters MD is Hospitalizing Provider. aa5 10:21 Masoud Mireles, RN is Primary Nurse. bp 10:21 Butch Masters MD is Attending Physician. aa5 10:21 Attending Physician role handed off by Butch Masters MD aa5 16:50 Triage completed. bp 17:42 Butch Masters MD is Attending Physician. eb Administered Medications: No medications were administered Outcome: 10:21 Decision to Hospitalize by Provider. aa5 16:53 Admitted to Med/surg bp 16:53 Condition: stable 16:53 Instructed on the need for admit. 17:42 Patient left the ED. eb Signatures: Zuleima Nelson Audri, RN RN aa Masoud Mireles, RN RN bp Tejal Humphrey eb Corrections: (The following items were deleted from the chart) 10:21 10:21 Patient left the ED. aa5 aa5
[2020-10-30] MEDS ORDERED: POLYETHYL GLY 3350 17 GM/DOSE PO PRN (11:00)
[2020-10-30] MEDS ORDERED: ACETAMINOPHEN 325 MG TABLET PO PRN (11:00)
[2020-10-30] MEDS ORDERED: LOPERAMIDE HCL 2 MG CAPSULE PO PRN (11:00)
[2020-10-30] MEDS ORDERED: ONDANSETRON 4 MG/2 ML VIAL IV PRN (11:00)
[2020-10-30] MEDS ORDERED: ONDANSETRON 4 MG (ODT) TAB PO PRN (11:00)
[2020-10-30] MEDS: NACHLORIDE 0.45% 1,000 ML IV SCH ×2 (11:00→18:44)
[2020-10-30] MEDS ORDERED: DIPHENHYDRAMINE 25 MG TAB/CAP PO PRN (11:00)
[2020-10-30 11:11] LABS: Absolute Lymphocytes (CBC) 0.5 K/uL (0.7-4.9); Basophils % 0.6 % (0-1.3); Hematocrit 38.1 % (39.6-49.0); Lymphocytes % 8.8 % (15.3-44.8); MPV 9.8 fL (7.6-11.3); RBC Red Blood Cell Count 4.38 M/uL (4.33-5.43)
[2020-10-30 11:26] LABS: ALT/SGPT 15 U/L (12-78); AST/SGOT 13 U/L (15-37); Albumin 1.7 g/dL (3.4-5.0); Alkaline Phosphatase 57 U/L (45-117); BUN Blood Urea Nitrogen 150 mg/dL (7-18); Bicarbonate 23 mmol/L (21-32); Bilirubin Direct < 0.1 mg/dL (0-0.2); Bilirubin Total 0.3 mg/dL (0.2-1.0); Glucose Level 101 mg/dL (74-106); Potassium 5.3 mmol/L (3.5-5.1); Protein, Total 5.2 g/dL (6.4-8.2); Sodium Level 144 mmol/L (136-145)
[2020-10-30] MEDS ORDERED: NA CHLORIDE 0.9% 1,000 ML ONE (11:45)
--- NOTE | 2020-10-30 12:18 | RAD REPORT ---
EXAM DESCRIPTION: RAD - Chest Pa And Lat (2 Views) - 10/30/2020 12:02 pm CLINICAL HISTORY: dehydration Chest pain. COMPARISON: CHEST SINGLE VIEW dated 10/06/2009 FINDINGS: The lungs are clear. Trace bilateral pleural effusions. The heart is normal in size. No di splaced fractures.
--- NOTE | 2020-10-30 15:20 | P.HP ---
Certification for Inpatient Patient admitted to: Inpatient With expected LOS: >2 Midnights Practitioner: I am a practitioner with admitting privileges, knowledge of patient current condition, hospital course, and medical plan of care. Services: Services provided to patient in accordance with Admission requirements found in Title 42 Section 412.3 of the Code of Federal Regulations Patient History Date of Service: 10/30/20 Reason for admission: SWELLING OF LEGS, WEAKNESS History of Present Illness: MR. ARMANI BARNES HAS NEW DIAGNOSIS OF M. GRAVIES. HE COMES TO OFFICE WITH EDEMA. INITIAL BLOOD WORK SHOWS NORMAL ALBUMIN AND NO SIGNS OF CHF, CKD OR CIRRHOSIS. HE DOES NOT RESPOND TO SMALL DOSE OF SPIRONOLACTONE. I STOPPED HIS LOTREL AND GAVE HIM HIGHER DOSE OF SPIROLOLACTONE. HE IS NOT DRIKING OR EATING WELL. I SUSPECTED NEPHROTIC SYNDROME WITH 3+ PROTEIN IN URINE AND DID MORE LAB TEST. HE SHOWED DEHYDRATION SO I ADVISED HIM TO GET ADMITTED. INITIALLY HE REFUSED TO DO SO BUT HE CAME TO ER HOLD FOR ADMISSION HOSPITAL DOES NOT HAVE ANY BEDS. I STARTED HIM ON IV FLUIDS LAB SHOWS PRE RENAL AZOTEMIA. FROM YESTERDAY'S LAB I ALSO FIND THAT HE HAS NEPHROTIC RANGE PROTEINURIA. I CALLED DR. CHANDLER TO GIVE ALL DETAILS. I ALSO TALKED TO SCARLETT THE DAUGHTER TO GIVE DETAILS. Allergies No Known Allergies Allergy (Verified 03/14/20 11:26) Home Medications: Amlodipine Bes/Olmesartan Med [Amlodipine-Olmesartan 5-40 mg] 1 tab PO DAILY 03/14/20 Cholecalciferol (Vitamin D3) [Vitamin D3] 1 tab PO DAILY 03/14/20 Cyanocobalamin (Vitamin B-12) [Vitamin B12] 1,000 mcg PO DAILY 03/14/20 Levothyroxine Sodium 1 tab PO AC 03/14/20 Metoprolol Succinate [Toprol Xl] 100 mg PO DAILY 03/14/20 Tamsulosin HCl [Flomax] 1 tab PO DAILY 03/14/20 - Past Medical/Surgical History Has patient received pneumonia vaccine in the past: Yes Diabetic: No -: htn -: HISTORY OF COLON CANCER, MANY YEARS AGO. SURGERY BY DR WILSON AND KURT . -: B12 DEFICIENCY -: OCULAR MYESTHENIA -: BPH -: AORTIC REGURGITATION- MILD -: HYPOTHYROIDISM -: PARTIAL COLECTOMY L SIDE- DR MAR- YEARS AGO. - Social History Smoking Status: Never smoker Alcohol use: Yes CD- Drugs: No Caffeine use: Yes Review of Systems 10-point ROS is otherwise unremarkable General: Weakness, Malaise Physical Examination - Vital Signs Blood Pressure: 174/71 Pulse: 52 Respirations: 15 Pulse Ox (%): 99 - Physical Exam General: Mild distress HEENT: Atraumatic, PERRLA, Mucous membr. moist/pink, EOMI, Sclerae nonicteric Neck: Supple, 2+ carotid pulse no bruit, No LAD, Without JVD or thyroid abnormality Respiratory: Clear to auscultation bilaterally, Normal air movement Cardiovascular: Regular rate/rhythm, Normal S1 S2, Edema (2+) Gastrointestinal: Normal bowel sounds, No tenderness Musculoskeletal: No tenderness Integumentary: No rashes Neurological: Normal gait, Normal speech, Normal strength at 5/5 x4 extr, Normal tone, Normal affect Lymphatics: No axilla or inguinal lymphadenopathy Assessment and Plan - Problems (Diagnosis) (1) Severe edema Current Visit: Yes Status: Acute Plan: THIS IS FROM NEPHROTIC SYNDROME. DR. CHANDLER ON CASE. MAY NEED RENAL BIOPSY TO DECIDE TREATMENT. THERE IS NO OBVIOUS REASON FOR PARANEOPLASTIC SYNDROME. SONOGRAM SHOWS SMALL LIVER LESION BUT CT SCAN CAN'T BE DONE WITH HIGH CREATININE FOR NOW. (2) Prerenal azotemia Current Visit: Yes Status: Acute Plan: STOPPED SPIRONOLACTONE. START IV FLUIDS MAY GET HIS EDEMA WORSE BUT CURRENTLY WE NEED TO REVERSE THE RENAL ISSUES. (3) History of colon cancer Current Visit: No Status: Chronic Plan: WE NEED TO MAKE SURE THAT THERE IS NO RECURRENCE OF CANCER. CT SCAN IN JUNE SHOWED SMALLER PERIRENAL LN COMPAREDE TO BEFORE SUGGESTIVE OF NON MALIGNANT PROCESS. WILL FU WITH CT SCAN WHEN CREATININE IS DOWN. PROGNOSIS IS GUARDED WITH NEPHROTIC SYNDROME AND M. GRAVIES. - Advance Directives Does patient have a Living Will: No Does patient have a Durable POA for Healthcare: No
[2020-10-30] MEDS ORDERED: cloNIDine HCL 0.1 MG TAB PO PRN (18:49)
[2020-10-30] MEDS: METOPROLOL XL 50 MG TAB PO SCH (19:36)
[2020-10-30] MEDS ORDERED: cloNIDine HCL 0.1 MG TAB PO SCH (20:00)
[2020-10-31] MEDS: NACHLORIDE 0.45% 1,000 ML IV SCH ×2 (00:20→07:00)
[2020-10-31] MEDS: cloNIDine HCL 0.1 MG TAB PO PRN ×3 (00:45→10:16)
[2020-10-31] MEDS: LEVOTHYROXINE SOD 0.025 MG TAB PO SCH (05:46)
[2020-10-31] MEDS: METOPROLOL XL 50 MG TAB PO SCH (05:48)
[2020-10-31 08:00] LABS: Magnesium 3.1 mg/dL (1.8-2.4); Potassium 5.3 mmol/L (3.5-5.1)
[2020-10-31 08:16] LABS: Absolute Lymphocytes (CBC) 0.5 K/uL (0.7-4.9); Basophils % 0.8 % (0-1.3); Lymphocytes % 10.6 % (15.3-44.8); RBC Red Blood Cell Count 3.46 M/uL (4.33-5.43)
[2020-10-31] MEDS: METOPROLOL XL 100 MG TAB PO SCH (09:00)
[2020-10-31] MEDS ORDERED: ENOXAPARIN 40 MG/0.4 ML SQ SCH (09:00)
[2020-10-31] MEDS: ENOXAPARIN 30 MG/0.3 ML SQ SCH (10:09)
[2020-10-31] MEDS: TAMSULOSIN 0.4 MG SR CAP PO SCH (10:10)
--- NOTE | 2020-10-31 10:20 | P.PN ---
Subjective Date of Service: 10/31/20 Chief Complaint: SWELLING OF LEGS, WEAKNESS Subjective: Improving MR. BARNES IS FEELING SOME BETTER. HE HAS NO CHEST PAIN. HE HAS DRY MOUTH AND WEAKNESS. Review of Systems 10-point ROS is otherwise unremarkable General: Weakness, Malaise Cardiovascular: Edema, As per HPI Physical Examination - Vital Signs Temperature: 96.9 F Blood Pressure: 190/88 Pulse: 56 Respirations: 16 Pulse Ox (%): 95 - Physical Exam General: Alert, In no apparent distress HEENT: Atraumatic, PERRLA, EOMI Neck: Supple, JVD not distended Respiratory: Clear to auscultation bilaterally, Normal air movement Cardiovascular: Regular rate/rhythm, Normal S1 S2, Edema Gastrointestinal: Normal bowel sounds, No tenderness Musculoskeletal: No tenderness Integumentary: No rashes Neurological: Abnormal gait, Abnormal strength (GEN WEAK.) Lymphatics: No axilla or inguinal lymphadenopathy - Studies Medications List Reviewed: Yes Assessment And Plan - Current Problems (Diagnosis) (1) Severe edema Current Visit: Yes Status: Acute Plan: THIS IS FROM NEPHROTIC SYNDROME. DR. CHANDLER ON CASE. MAY NEED RENAL BIOPSY TO DECIDE TREATMENT. THERE IS NO OBVIOUS REASON FOR PARANEOPLASTIC SYNDROME. SONOGRAM SHOWS SMALL LIVER LESION BUT CT SCAN CAN'T BE DONE WITH HIGH CREATININE FOR NOW. FROM NEPHROTIC SYNDROME. (2) Prerenal azotemia Current Visit: Yes Status: Acute Plan: STOPPED SPIRONOLACTONE. START IV FLUIDS MAY GET HIS EDEMA WORSE BUT CURRENTLY WE NEED TO REVERSE THE RENAL ISSUES. IMPROVED NUMBERS TODAY. (3) History of colon cancer Current Visit: No Status: Chronic Plan: WE NEED TO MAKE SURE THAT THERE IS NO RECURRENCE OF CANCER. CT SCAN IN JUNE SHOWED SMALLER PERIRENAL LN COMPAREDE TO BEFORE SUGGESTIVE OF NON MALIGNANT PROCESS. WILL FU WITH CT SCAN WHEN CREATININE IS DOWN. PROGNOSIS IS GUARDED WITH NEPHROTIC SYNDROME AND M. GRAVIES. HOPEFULLY THERE IS NO SECONDARY CANCER CAUSING THE NEPHROTIC SYNDROME AND M GRAVIES PARANEOPLASTIC SYNDROME. (4) Myasthenia gravis Current Visit: Yes Status: Chronic Plan: THIS IS A NEW ISSUE FOR HIM FOR LAST FEW WEEKS. HE IS ON PYRIDOSTIGMINE AND SMALL DOSE OF STEROIDS. DR. BOWEN DOES NOT COME TO THIS OR ANY HOSPITAL FOR ROUNDS. (5) HTN (hypertension) Current Visit: No Status: Chronic Plan: ADD HYDRALAZINE TO THE REGIMEN YESTERDAY I ADDED CLONIDINE. WITH LOW HEART RATE AND EDEMA PLUS RENAL ISSUES WE CURRENTLY CAN'T USE ACEI, ARBS, CALCIUM CHANNEL BLOCKERS AND HE IS ON MAX TOLERATED DOSE OF METOPROLOL. Qualifiers: Hypertension type: essential hypertension Qualified Code(s): I10 - Essential (primary) hypertension
[2020-10-31] MEDS: NA CHLORIDE 0.9% 1,000 ML IV SCH ×2 (12:00→17:11)
[2020-10-31] MEDS ORDERED: HYDRALAZINE HCL 25 MG TABLET PO SCH (14:00)
[2020-10-31] MEDS: HYDRALAZINE HCL 25 MG TABLET PO SCH ×2 (14:00→20:17)
[2020-10-31] MEDS: PYRIDOSTIGMINE 60 MG TABLET PO SCH ×2 (14:00→20:17)
--- NOTE | 2020-10-31 15:43 | CON ---
Date of Consultation: 10/31/2020 Additional Consulting Physician: Butch Masters MD Reason For Consultation: Elevated BUN and creatinine, acute kidney injury, anasarca, nephrotic range of proteinuria. History Of Present Illness: This is an pleasant 85-year-old gentleman. All the information has been obtained from the patient and from the by bedside. The patient had significant past medical history of myasthenia gravis, hypertension, hypothyroidism, colon cancer status post resection, last followup 4 years ago, vitamin B12 deficiency, benign prostate hypertrophy, hypothyroidism, the patient was in his regular state of health. As I mentioned, the patient was diagnosed with myasthenia gravis, was treated and placed later on prednisone, minimal dose. The patient was doing well till the last couple of months when he started having increase in his leg swelling. For that reason, he visited with Dr. Masters. At that time, medication has been changed. The patient was placed on spironolactone and released. Edema did not resolve. For that reason, the spironolactone has been increased to 100 mg and calcium channel suzie and ARB has been discontinued. The patient continued to have significant swelling and lab showed elevation in BUN and creatinine. For that reason, the patient was directed to the hospital. Spironolactone has been discontinued. The patient was started on gentle hydration. Upon arrival to the hospital, the patient's creatinine was 2.4 with marginal hyperkalemia 5.3. After gentle hydration, creatinine is down to 2, GFR improved from 26 to 31. The patient persisted marginal hyperkalemia with potassium 5.3. The patient denied taking any nonsteroidal. No IV contrast. The patient admits as I mentioned that he had colon cancer, last followup almost 4 years back. The patient had CT abdomen and pelvis back in June 2020. At that time, kidney was unremarkable without any hydronephrosis, has some mass on the kidney, decreased in size. Questionable lumps noted. DVT study for lower extremities was done and it was negative. Past Medical History: Includes: 1. Hypertension. 2. Myasthenia gravis. 3. Colon cancer, status post resection. 4. Hypothyroidism. 5. Benign prostate hypertrophy. 6. Aortic regurgitation. Past Surgical History: Includes partial colon resection. Social History: Denies smoking. Occasional alcohol. Denies drug abuse. Family History: Positive for hypertension. Review of Systems: Head and Neck: No red eye. No ear pain. Decreased hearing. GI: No nausea, no vomiting. : Decreased urine output. MANAGER MISS[place]: Not applicable. Respiratory: No shortness of breath. Cardiovascular: Has leg swelling. No orthopnea. Endocrine: No polydipsia. Skin: No rash. Neuro: Decreased hearing, weakness. Musculoskeletal: Generalized fatigue. Physical Examination: Vital Signs: When I saw the patient, blood pressure 190/88, pulse of 56, afebrile. Had urine output of 450. Chest: Clear to auscultation. Heart: S1, S2, regular. Abdomen: Soft, nontender. No organomegaly. Extremities: +1 edema. Neurological: Alert and oriented x3. No focal. Lymph node exam, negative on the femoral, cervical, and axillary. Laboratory Data: Back in June 2020, creatinine 0.8 with GFR of 85 and hemoglobin 14.8, WBC 12, platelet 203. In October 2020, on the , urinalysis has WBC of 10 and +3 protein with positive blood. Creatinine 2.5 with GFR of 22, calcium 8.2, albumin 2.2, corrected calcium is 9.8. The patient's PC ratio was 12 g. TSH 4.5, triglycerides only 80 in September 2020, still +3 protein. Hemoglobin 12.5 at that time, creatinine 0.7 with GFR 87. Upon this admission; WBC 5.4, H and H 12.2/38, platelets 196. Sodium 144, potassium 5.3, bicarb 23, BUN 150, creatinine 2.4, calcium 8.5, albumin 1.7. Corrected calcium is 10.5. Today lab data; sodium 141, potassium 5.3 bicarb 21, BUN 139, creatinine 2, GFR of 31, calcium 7.5, magnesium 3.1. WBC 4.5, H and H 9.9/30, platelet 141. Urinalysis; specific gravity of 1.020. COVID was negative. Current Medications: Include: 1. Flomax. 2. Lovenox. 3. Clonidine p.r.n. 4. Hydralazine 25. 5. Metoprolol. 6. Levothyroxine. 7. IV fluid at 150 per hour. Assessment And Plan: 1. Acute kidney injury, possible secondary to nephrotic range proteinuria, normal size kidney, possible secondary to over diuresis supported with high specific gravity and given the presence of the hematuria and the presence of nephrotic range of proteinuria. We need to rule out any nephritis, especially with the presence of current elevation in the blood pressure. I am going to go ahead and arrange for kidney biopsy. Send for full serology. I agree with holding spironolactone and gentle hydration. 2. Anemia with the presence of hypercalcemia and renal failure with nephrotic range of proteinuria, to rule out light chain disease. We will send for serum protein electrophoresis and anemia workup and we will follow up. Given the acute drop, I am going to send for LDH and haptoglobin given the drop in his platelet. 3. Nephrotic range of proteinuria, not nephrotic syndrome, as a triglyceride on the normal range. As above, keep holding olmesartan and spironolactone. 4. Hypertension with the presence of nephritis. We are going to have to have better control on the blood pressure. Increase hydralazine and place the patient on calcium channel suzie and we will follow up the patient closely. 5. Hypercalcemia secondary to dehydration with calcium diuresis with the presence of anemia. Light chain disease/paraneoplastic need to be ruled out. We will send for the workup. 6. History of colon cancer with the presence of the nephrotic range of proteinuria and acute kidney injury. Membraneous/IgA need to be ruled out, especially with the presence of history of myasthenia gravis. We will send for the serology and we will follow up. 7. Anasarca, possible secondary to renal failure/hypothyroidism. The patient had ruled out any possibility of not treated hypothyroidism as TSH was within normal range. I can continue levothyroxine. We will follow up with the primary. 8. Myasthenia gravis as by primary. Thank you Dr. Masters for allowing us to participate in the care of your patient. Time spent discussing with the patient, examining the patient, exam [id number], placing order, discussing with staff and other consulting include Primary 75 minutes. BHAVIK Voice ID: [id number] Report ID: [id number] TONY
[2020-11-01] MEDS: LEVOTHYROXINE SOD 0.025 MG TAB PO SCH (05:39)
[2020-11-01 07:18] LABS: Absolute Lymphocytes (CBC) 0.5 K/uL (0.7-4.9); Basophils % 0.3 % (0-1.3); Hematocrit 33.4 % (39.6-49.0); Lymphocytes % 8.4 % (15.3-44.8); MPV 9.9 fL (7.6-11.3); RBC Red Blood Cell Count 3.91 M/uL (4.33-5.43)
[2020-11-01 08:08] LABS: Albumin 1.4 g/dL (3.4-5.0); Ferritin 114.8 ng/mL (26-388); Folic Acid, (Folate) 8.8 ng/mL (3.1-17.5); Magnesium 2.9 mg/dL (1.8-2.4); Phosphorus 4.8 mg/dL (2.5-4.9); Potassium 5.1 mmol/L (3.5-5.1); Uric Acid 10.3 mg/dL (3.5-7.2)
[2020-11-01 08:09] LABS: Thyroid Stimulating Hormone 9.58 uIU/mL (0.360-3.740)
[2020-11-01] MEDS ORDERED: NIFEDIPINE XL 30 MG TABLET PO SCH (09:00)
[2020-11-01] MEDS: TAMSULOSIN 0.4 MG SR CAP PO SCH (09:48)
[2020-11-01] MEDS: PYRIDOSTIGMINE 60 MG TABLET PO SCH ×3 (09:48→21:25)
[2020-11-01] MEDS: HYDRALAZINE HCL 25 MG TABLET PO SCH ×3 (09:48→21:00)
[2020-11-01] MEDS: METOPROLOL XL 100 MG TAB PO SCH (09:49)
[2020-11-01] MEDS: ENOXAPARIN 30 MG/0.3 ML SQ SCH (09:49)
[2020-11-01] MEDS: NA CHLORIDE 0.9% 1,000 ML IV SCH ×2 (09:49→17:21)
[2020-11-01] MEDS: predniSONE 1 MG TAB PO SCH (11:27)
--- NOTE | 2020-11-01 21:31 | CON ---
Date of Consultation: 11/01/2020 Time: 1610. Reason For Consultation: Myasthenia, edema, renal failure. History Of Present Illness: An 85-year-old gentleman with a history of colon carcinoma, generalized myasthenia gravis antibody positive, hypertension, who about 2-3 weeks ago started developing increas ing edema to the lower extremities, saw his primary care physician, no heart failure, no cirrhosis, p laced on spironolactone, 3+ protein in the urine, developed renal insufficiency and generalized weakn ess, difficulty ambulating, difficulty getting out of bed. Creatinine elevated up to 2.2. Protein w as down to 5.2, so the decision was made to admit the patient to the hospital with renal failure and he has significant comorbidities including the myasthenia. Plan is for a kidney biopsy tomorrow to h elp sort through the etiology of the nephrotic range proteinuria. He is on Mestinon 60 mg t.i.d. and a very low-dose prednisone 2 mg daily. We had been aware of the edema because the had called t he office and asked if any of the medications might be contributing, but we did not feel that the rel atively low dose of the prednisone nor the Mestinon was contributing significantly to the edema. Giv en that the patient may need significant and rapid increases in the prednisone dosing depending on th e results of the kidney biopsy, it was felt prudent to have him re-evaluated by Neurology. Consultat ion was requested. Past Medical History: As alluded to . Medications: Medications for the myasthenia as noted. He is also on clonidine, Lovenox, hydralazine , levothyroxine, metoprolol, low dose nifedipine 30 mg daily, and Flomax. Allergies: NONE. Social History: . He is normally independent with activities of daily living. Myasthenia un til recently seemed to generally just have primarily ocular symptoms. Review of Systems: General: As noted generally healthy. Eyes: Ptosis and diplopia. Ears Nose Throat: No dysarthria. No dysphagia. Cardiovascular: Hypertension. Pulmonary: No dyspnea. GI: Negative. : As alluded to. Musculoskeletal: He does have some arthralgias. Neurologic: As noted. Psychiatric: Negative. Endocrine: Hypothyroidism. Physical Examination: Vital Signs: Blood pressure looks better today 136/58, temperature is 97, heart rate 67, respiration s 18, he is saturating 97% on room air. General: He is awake, alert, oriented. He has to put his hearing aids but once he gets those insert ed properly is aware of what is going on. HEENT: He has mild asymmetric ptosis OD more than OS. Ocular motion is full without nystagmus and w ithout subjective diplopia. Facial strength and sensation are normal. Tongue is midline. Soft [place] te elevates symmetrically bilaterally. Extremities: Strength is actually full. Sensation intact. Reflexes are 1/4 in the legs and 2+ in t he arms. Toes are downgoing. Neurologic: Cerebellar exam demonstrates no ataxia. Pertinent Laboratory Data: White count of 5.5, hemoglobin 11.3, platelets 171, creatinine 2.2, uric acid 10.3. Albumin 1.4. CPK 153. B12 1900, fully normal. TSH 9.5. Additional labs pending. Impression: 1.Myasthenia gravis, stable. 2.Renal failure, nephrotic syndrome. Plan: Plan is for kidney biopsy tomorrow for that disorder. Discussion with regard to the myastheni a; if he needs higher dose of steroids, then that is fine, it is not a contraindication. We may have to adjust the Mestinon as there can occasionally be a steroid effect with transient worsening of christina sthenic symptoms when steroids are increased. Given his current renal insufficiency, I would avoid t hings like IgG and I do not think that starting a medication like Imuran given the other ongoing prob lems would be prudent at this juncture. If he develops myasthenic crisis with persistent elevated cr eatinines then would likely be a candidate for plasma exchange. Plan is for some additional imaging as well, but given the elevated creatinine, he cannot receive any contrast agents right now. Thank you for the consult. We will continue to follow with you. This would not make any changes to his regimen for the myasthenia. Presently, it appears stable to actually somewhat improved from init ial evaluation several months ago. BK/MODL Voice ID: [id number] Report ID: [id number]
--- NOTE | 2020-11-01 23:49 | PN ---
Date of Progress Note: 11/01/2020 Subjective: The patient was admitted with acute kidney injury secondary to over-diuresis, questionable secondary to AIN, secondary to spironolactone, found to be nephrotic range of proteinuria, no diabetes, no other risk factor, no nonsteroidal. The patient was started on hydration. Kidney function did not improve. Still no shortness of breath. Edema has been subsided. Spironolactone has been discontinued. Physical Examination: Vital Signs: The patient's blood pressure 107/49, pulse of 66, afebrile. Chest: Clear to auscultation. Heart: S1, S2. Regular. Abdomen: Soft, nontender. Extremities: Trace edema. Neurologic: Alert and oriented x3. Difficulty hearing. Laboratory Data: WBC 5.5, H and H 11.3/33.4. Sodium 137, potassium 5.1, bicarb 17, BUN 135, creatinine 2.2, calcium 8.6. Uric acid 10. Assessment And Plan: 1. Acute kidney injury, unknown etiology with acidosis with nephrotic range of proteinuria, normal size kidney. I am going to go ahead and proceed with kidney biopsy, plan for tomorrow. Discontinue IV fluid. We will monitor the patient. 2. Hypertension, controlled, optimal. Continue current medication. 3. Nephrotic range of proteinuria with worsening kidney function. I am going to be hesitant to place any MARCOS inhibitor or ARB. We will monitor. 4. Acidosis. We will start the patient on oral bicarb. 5. Anemia with the presence of acute kidney injury. Light chain disease needs to be ruled out. We will follow up serum protein electrophoresis. 6. Hyperkalemia, resolved. Keep holding MARCOS inhibitor/ARB/spironolactone. 7. Anasarca secondary to renal failure/nephrotic range of proteinuria/hypothyroidism. The patient was recently started on levothyroxine. We will follow up with the primary. Keep holding diuresis for the time being. Time spent discussing with the patient, examining the patient, exam [id number], placing order, discussing with staff and other consulting include Primary 45 minutes. GARRETT/GRACIE Voice ID: [id number] Report ID: [id number] [facility]
[2020-11-02 03:30] LABS: Rheumatoid Factor NEG (NEG)
[2020-11-02] MEDS: NA CHLORIDE 0.9% 1,000 ML IV SCH ×3 (04:00→14:00)
[2020-11-02] MEDS: LEVOTHYROXINE SOD 0.025 MG TAB PO SCH (05:49)
[2020-11-02 05:50] LABS: Absolute Lymphocytes (CBC) 0.3 K/uL (0.7-4.9); Basophils % 0.4 % (0-1.3); Hematocrit 31.4 % (39.6-49.0); Lymphocytes % 5.8 % (15.3-44.8); MPV 10.7 fL (7.6-11.3); RBC Red Blood Cell Count 3.63 M/uL (4.33-5.43)
[2020-11-02 06:32] LABS: Albumin 1.5 g/dL (3.4-5.0); Phosphorus 5.7 mg/dL (2.5-4.9)
[2020-11-02 06:35] LABS: Magnesium 2.8 mg/dL (1.8-2.4)
--- NOTE | 2020-11-02 06:38 | P.PN ---
Subjective Date of Service: 11/01/20 Chief Complaint: SWELLING OF LEGS, WEAKNESS Subjective: Improving MR. BARNES IS FEELING SOME BETTER. HE HAS NO CHEST PAIN. HE HAS DRY MOUTH AND WEAKNESS. MR. BARNES IS STRONGER, STARTING TO WALK SLOWLY WITH PT. DENIES ANY CHEST PAIN. Review of Systems 10-point ROS is otherwise unremarkable General: Weakness Physical Examination - Vital Signs Temperature: 96.8 F Blood Pressure: 119/55 Pulse: 65 Respirations: 14 Pulse Ox (%): 97 - Physical Exam General: Alert, In no apparent distress HEENT: Atraumatic, PERRLA, EOMI Neck: Supple, JVD not distended Respiratory: Clear to auscultation bilaterally, Normal air movement Cardiovascular: Regular rate/rhythm, Normal S1 S2, Edema Gastrointestinal: Normal bowel sounds, No tenderness Musculoskeletal: No tenderness Integumentary: No rashes Neurological: Normal speech, Normal tone, Normal affect Lymphatics: No axilla or inguinal lymphadenopathy - Studies Medications List Reviewed: Yes Assessment And Plan - Current Problems (Diagnosis) (1) Severe edema Current Visit: Yes Status: Acute Plan: THIS IS FROM NEPHROTIC SYNDROME. DR. CHANDLER ON CASE. MAY NEED RENAL BIOPSY TO DECIDE TREATMENT. THERE IS NO OBVIOUS REASON FOR PARANEOPLASTIC SYNDROME. SONOGRAM SHOWS SMALL LIVER LESION BUT CT SCAN CAN'T BE DONE WITH HIGH CREATININE FOR NOW. FROM NEPHROTIC SYNDROME. (2) Prerenal azotemia Current Visit: Yes Status: Acute Plan: STOPPED SPIRONOLACTONE. START IV FLUIDS MAY GET HIS EDEMA WORSE BUT CURRENTLY WE NEED TO REVERSE THE RENAL ISSUES. IMPROVED NUMBERS TODAY. (3) History of colon cancer Current Visit: No Status: Chronic Plan: WE NEED TO MAKE SURE THAT THERE IS NO RECURRENCE OF CANCER. CT SCAN IN JUNE SHOWED SMALLER PERIRENAL LN COMPAREDE TO BEFORE SUGGESTIVE OF NON MALIGNANT PROCESS. WILL FU WITH CT SCAN WHEN CREATININE IS DOWN. PROGNOSIS IS GUARDED WITH NEPHROTIC SYNDROME AND M. GRAVIES. HOPEFULLY THERE IS NO SECONDARY CANCER CAUSING THE NEPHROTIC SYNDROME AND M GRAVIES PARANEOPLASTIC SYNDROME. (4) Myasthenia gravis Current Visit: Yes Status: Chronic Plan: THIS IS A NEW ISSUE FOR HIM FOR LAST FEW WEEKS. HE IS ON PYRIDOSTIGMINE AND SMALL DOSE OF STEROIDS. DR. BOWEN DOES NOT COME TO THIS OR ANY HOSPITAL FOR ROUNDS. (5) HTN (hypertension) Current Visit: No Status: Chronic Plan: ADD HYDRALAZINE TO THE REGIMEN YESTERDAY I ADDED CLONIDINE. WITH LOW HEART RATE AND EDEMA PLUS RENAL ISSUES WE CURRENTLY CAN'T USE ACEI, ARBS, CALCIUM CHANNEL BLOCKERS AND HE IS ON MAX TOLERATED DOSE OF METOPROLOL. Qualifiers: Hypertension type: essential hypertension Qualified Code(s): I10 - Essential (primary) hypertension (6) Nephritic syndrome Current Visit: Yes Status: Acute Plan: HE LOST 12 GM OF PROTEIN ON SPOT [facility] AT [facility]. HE WILL GET RENAL BIOPSY IN AM. ALBUMIN IS LOW AT 1.7. HE DOES NOT EAT, HE NEEDS TO EAT. I TOLD FAMILY TO BRING HIM FOOD DAILY.
[2020-11-02 06:39] LABS: Potassium 5.8 mmol/L (3.5-5.1)
[2020-11-02 07:15] LABS: Arterial Blood Carboxyhemoglob 0.8 % (0-1.5); Blood Gas Oxyhemoglobin 95.5 % (94-97); Blood O2 Saturation 96.7 % (92-98.5)
[2020-11-02 07:48] LABS: Potassium 5.9 mmol/L (3.5-5.1)
[2020-11-02 08:54] LABS: Protime INR 0.91
[2020-11-02 08:57] LABS: Potassium 5.4 mmol/L (3.5-5.1)
[2020-11-02] MEDS: predniSONE 1 MG TAB PO SCH (09:00)
[2020-11-02] MEDS: PYRIDOSTIGMINE 60 MG TABLET PO SCH ×3 (09:00→21:24)
[2020-11-02] MEDS: allopurinoL 100 MG TAB PO SCH (09:00)
[2020-11-02] MEDS: HYDRALAZINE HCL 25 MG TABLET PO SCH ×3 (09:00→21:00)
[2020-11-02] MEDS: METOPROLOL XL 100 MG TAB PO SCH (09:00)
[2020-11-02] MEDS: TAMSULOSIN 0.4 MG SR CAP PO SCH (09:00)
[2020-11-02] MEDS: ENOXAPARIN 30 MG/0.3 ML SQ SCH (09:00)
[2020-11-02] MEDS ORDERED: MIDAZOLAM HCL 2 MG/2 ML INJ ONE (09:27)
[2020-11-02] MEDS ORDERED: NALOXONE 0.4 MG/ML VIAL ONE (09:27)
[2020-11-02] MEDS ORDERED: NA CHLORIDE 0.9% 500 ML ONE (09:27)
[2020-11-02] MEDS ORDERED: FENTANYL CITR 100 MCG/2 ML ONE (09:27)
--- NOTE | 2020-11-02 11:38 | RAD REPORT ---
EXAM DESCRIPTION: CT - Renal Biopsy CT - 11/02/2020 11:29 am CLINICAL HISTORY: TEJAS Flank pain COMPARISON: No comparisons FINDINGS: Preoperative diagnosis: Kidney failure Post operative diagnosis: Same Conscious Sedation: 45 minutes of IV conscious sedation was utilized with IV fentanyl and midazolam. Patient was continuously monitored by nursing staff. Contrast used: NONE Estimated blood loss: less than 5 mL Specimens: 3 x 18 gauge core specimens The patient was placed prone on the table and the posterior left flank area was prepped and draped in the usual sterile fashion. 1% lidocaine was infiltrated into the subcutaneous tissues for local anes thesia. Under computed tomographic guidance, a 17 gauge introducer was advanced into the inferior gus e left kidney. Subsequently, a 18 gauge, 11 cm long, 20 mm throw core biopsy gun was advanced into in ferior kidney and 3 cores were obtained. Postprocedure imaging demonstrated no complications. Samples were given to pathology for analysis. Th e patient tolerated the procedure without immediate complication and transferred [facility] condition. IMPRESSION: Successful CT-guided nonfocal left renal biopsy. 45 minutes of IV conscious sedation was utilized. All CT scans are performed using dose optimization technique as appropriate and may include automated exposure control or mA/KV adjustment according to patient size.
[2020-11-02 13:00] LABS: Urine Appearance TURBID; Urine Blood NEGATIVE (NEG); Urine Color DK YELLOW; Urine Glucose TRACE (NEG); Urine Protein 3+ (NEG); Urine Specific Gravity >=1.030 (1.005-1.030); Urine Urobilinogen 0.2 mg/dL (0.2-1.0); Urine pH 5.5 (5.0-7.0)
[2020-11-02] MEDS ORDERED: NACHLORIDE 0.45% 1,000 ML with NA BICARB 8.4% 150 MEQ IV SCH ×2 (13:00)
[2020-11-02 13:02] LABS: Urine Bilirubin 1+ (NEG); Urine Microscopic Reflex ORDER UMIC
[2020-11-02 13:12] LABS: Urine Bacteria >50 /HPF (NONE SEEN); Urine RBC <5 /HPF (NONE SEEN)
[2020-11-02 13:13] LABS: Urine Amorphous Sediment 3+ /HPF (NONE SEEN)
--- NOTE | 2020-11-02 17:42 | P.PN ---
Subjective Date of Service: 11/02/20 Chief Complaint: SWELLING OF LEGS, WEAKNESS Subjective: Improving MR. BARNES IS FEELING SOME BETTER. HE HAS NO CHEST PAIN. HE HAS DRY MOUTH AND WEAKNESS. MR. BARNES IS STRONGER, STARTING TO WALK SLOWLY WITH PT. DENIES ANY CHEST PAIN. HE IS STABLE HAS SOME EPIG PAIN BUT NOW HE SAYS. Review of Systems 10-point ROS is otherwise unremarkable General: Weakness Physical Examination - Vital Signs Temperature: 97.7 F Blood Pressure: 143/62 Pulse: 65 Respirations: 18 Pulse Ox (%): 95 - Physical Exam General: Mild distress HEENT: Atraumatic, PERRLA, EOMI Neck: Supple, JVD not distended Respiratory: Clear to auscultation bilaterally, Normal air movement Cardiovascular: Regular rate/rhythm, Normal S1 S2, Edema Gastrointestinal: Normal bowel sounds, No tenderness Musculoskeletal: No tenderness Integumentary: No rashes Neurological: Normal speech, Normal tone, Normal affect Lymphatics: No axilla or inguinal lymphadenopathy - Studies Medications List Reviewed: Yes Assessment And Plan - Current Problems (Diagnosis) (1) Severe edema Current Visit: Yes Status: Acute Plan: THIS IS FROM NEPHROTIC SYNDROME. DR. CHANDLER ON CASE. MAY NEED RENAL BIOPSY TO DECIDE TREATMENT. THERE IS NO OBVIOUS REASON FOR PARANEOPLASTIC SYNDROME. SONOGRAM SHOWS SMALL LIVER LESION BUT CT SCAN CAN'T BE DONE WITH HIGH CREATININE FOR NOW. FROM NEPHROTIC SYNDROME. (2) History of colon cancer Current Visit: No Status: Chronic Plan: WE NEED TO MAKE SURE THAT THERE IS NO RECURRENCE OF CANCER. CT SCAN IN JUNE SHOWED SMALLER PERIRENAL LN COMPAREDE TO BEFORE SUGGESTIVE OF NON MALIGNANT PROCESS. WILL FU WITH CT SCAN WHEN CREATININE IS DOWN. PROGNOSIS IS GUARDED WITH NEPHROTIC SYNDROME AND M. GRAVIES. HOPEFULLY THERE IS NO SECONDARY CANCER CAUSING THE NEPHROTIC SYNDROME AND M GRAVIES PARANEOPLASTIC SYNDROME. (3) Myasthenia gravis Current Visit: Yes Status: Chronic Plan: THIS IS A NEW ISSUE FOR HIM FOR LAST FEW WEEKS. HE IS ON PYRIDOSTIGMINE AND SMALL DOSE OF STEROIDS. DR. BOWEN DOES NOT COME TO THIS OR ANY HOSPITAL FOR ROUNDS. (4) HTN (hypertension) Current Visit: No Status: Chronic Plan: ADD HYDRALAZINE TO THE REGIMEN YESTERDAY I ADDED CLONIDINE. WITH LOW HEART RATE AND EDEMA PLUS RENAL ISSUES WE CURRENTLY CAN'T USE ACEI, ARBS, CALCIUM CHANNEL BLOCKERS AND HE IS ON MAX TOLERATED DOSE OF METOPROLOL. Qualifiers: Hypertension type: essential hypertension Qualified Code(s): I10 - Essential (primary) hypertension (5) Nephritic syndrome Current Visit: Yes Status: Acute Plan: HE LOST 12 GM OF PROTEIN ON SPOT [facility]CEK AT [facility]. HE WILL GET RENAL BIOPSY IN AM. ALBUMIN IS LOW AT 1.7. HE DOES NOT EAT, HE NEEDS TO EAT. I TOLD FAMILY TO BRING HIM FOOD DAILY. (6) Acute renal failure Current Visit: Yes Status: Acute Plan: HE HAS THIS FROM RENAL DISEASE. NEPHROTIC SYNDROME IS THE CAUSE. BIOPSY IS DONE. REPORT IS PENDING. TALKED TO FAMILY YESTERDAY. (7) Metabolic acidosis Current Visit: Yes Status: Acute Plan: TALKED TO DR. CHANDLER TWICE. BICARB DRIP HAS BEEN STARTED.
[2020-11-02 18:01] LABS: UR PROTEIN > 2500 mg/dL (<11.9); Urine Protein/Creatinine Ratio 6.56 ratio (<0.15)
[2020-11-02 22:03] LABS: Potassium 5.9 mmol/L (3.5-5.1)
[2020-11-02] MEDS ORDERED: FUROSEMIDE 40 MG/4 ML VIAL IV ONE (22:26)
[2020-11-02] MEDS ORDERED: SOD POLYSTYREN SUL 15 GM/60 ML UCUP PO ONE (22:27)
[2020-11-02] MEDS: NACHLORIDE 0.45% 1,000 ML with NA BICARB 8.4% 150 MEQ IV SCH ×2 (22:43)
--- NOTE | 2020-11-02 23:54 | PN ---
Date of Progress Note: 11/02/2020 Chief Complaint: Acute kidney injury, severe, borderline oliguric. Subjective: The patient is undergoing workup for acute kidney injury with proteinuria. Renal functi on has declined. There is high BUN-creatinine ratio, questionable acute interstitial nephritis secon sasha to spironolactone. Currently, spironolactone is on hold due to hyperkalemia. The patient devel oped metabolic acidosis secondary to kidney failure. Review of Systems: Denies PND or orthopnea. Objective: Lungs: Diminished breath sounds at bases. Heart: S1, S2. Abdomen: Soft, benign. Extremities: Minimal edema. Laboratory Data: Sodium 137, BUN 135, creatinine 2.2, calcium 8.6, uric acid 10, potassium 5.1 and i ncreased to 5.9. Impression And Plan: 1.Acute kidney injury of unknown etiology, associated with severe acidosis and nephrotic range prote inuria. The patient was started on sodium bicarbonate drip and potassium level went back to 5.1 to 5 .9. The patient is on Kayexalate. Bicarbonate drip was increased from 50 mL/h to 100 mL/h. The pat ient is undergoing workup to rule out glomerulonephritis. 2.He has anasarca, fluid overload. Lasix was started for volume control. The patient although may need to start dialysis in very near future. EB/MODL Voice ID: [id number] Report ID: [id number]
[2020-11-02] MEDS ORDERED: SODIUM BICARB 50 MEQ/50ML VIAL ONE (23:58)
[2020-11-03] MEDS ORDERED: SODIUM BICARB 50 MEQ/50ML VIAL ONE (00:04)
[2020-11-03 04:38] LABS: Absolute Lymphocytes (CBC) 0.2 K/uL (0.7-4.9); Basophils % 0.3 % (0-1.3); Lymphocytes % 2.6 % (15.3-44.8); MPV 10.4 fL (7.6-11.3); RBC Red Blood Cell Count 3.36 M/uL (4.33-5.43)
[2020-11-03 04:49] LABS: Albumin 1.4 g/dL (3.4-5.0); Magnesium 2.7 mg/dL (1.8-2.4); Phosphorus 6.9 mg/dL (2.5-4.9); Potassium 5.2 mmol/L (3.5-5.1)
[2020-11-03 04:53] LABS: Protime INR 0.87
[2020-11-03 05:11] LABS: Blood Morphology Comment NOT SEEN (NOT SEEN); Platelet Estimate ADEQ
[2020-11-03] MEDS: LEVOTHYROXINE SOD 0.025 MG TAB PO SCH (06:26)
--- NOTE | 2020-11-03 08:26 | P.PN ---
Subjective Date of Service: 11/03/20 Chief Complaint: SWELLING OF LEGS, WEAKNESS Subjective: C/O voiced (TOE NAIL PAIN.L) MR. BARNES IS FEELING SOME BETTER. HE HAS NO CHEST PAIN. HE HAS DRY MOUTH AND WEAKNESS. MR. BARNES IS STRONGER, STARTING TO WALK SLOWLY WITH PT. DENIES ANY CHEST PAIN. HE IS STABLE HAS SOME EPIG PAIN BUT NOW HE SAYS. Review of Systems 10-point ROS is otherwise unremarkable General: Weakness Physical Examination - Vital Signs Temperature: 96.8 F Blood Pressure: 137/63 Pulse: 75 Respirations: 18 Pulse Ox (%): 97 - Physical Exam General: Oriented x3, Cooperative, Mild distress HEENT: Atraumatic, PERRLA, EOMI Neck: Supple, JVD not distended Respiratory: Clear to auscultation bilaterally, Normal air movement Cardiovascular: Regular rate/rhythm, Normal S1 S2, Edema Gastrointestinal: Normal bowel sounds, No tenderness Musculoskeletal: No tenderness Integumentary: No rashes Neurological: Normal speech, Normal tone, Normal affect Lymphatics: No axilla or inguinal lymphadenopathy - Studies Medications List Reviewed: Yes Assessment And Plan - Current Problems (Diagnosis) (1) Severe edema Current Visit: Yes Status: Acute Plan: THIS IS FROM NEPHROTIC SYNDROME. DR. CHANDLER ON CASE. MAY NEED RENAL BIOPSY TO DECIDE TREATMENT. THERE IS NO OBVIOUS REASON FOR PARANEOPLASTIC SYNDROME. SONOGRAM SHOWS SMALL LIVER LESION BUT CT SCAN CAN'T BE DONE WITH HIGH CREATININE FOR NOW. FROM NEPHROTIC SYNDROME. BIOPSY REPORT IS PENDING. (2) History of colon cancer Current Visit: No Status: Chronic Plan: WE NEED TO MAKE SURE THAT THERE IS NO RECURRENCE OF CANCER. CT SCAN IN JUNE SHOWED SMALLER PERIRENAL LN COMPAREDE TO BEFORE SUGGESTIVE OF NON MALIGNANT PROCESS. WILL FU WITH CT SCAN WHEN CREATININE IS DOWN. PROGNOSIS IS GUARDED WITH NEPHROTIC SYNDROME AND M. GRAVIES. HOPEFULLY THERE IS NO SECONDARY CANCER CAUSING THE NEPHROTIC SYNDROME AND M GRAVIES PARANEOPLASTIC SYNDROME. (3) Myasthenia gravis Current Visit: Yes Status: Chronic Plan: THIS IS A NEW ISSUE FOR HIM FOR LAST FEW WEEKS. HE IS ON PYRIDOSTIGMINE AND SMALL DOSE OF STEROIDS. DR. BOWEN DOES NOT COME TO THIS OR ANY HOSPITAL FOR ROUNDS. (4) HTN (hypertension) Current Visit: No Status: Chronic Plan: ADD HYDRALAZINE TO THE REGIMEN YESTERDAY I ADDED CLONIDINE. WITH LOW HEART RATE AND EDEMA PLUS RENAL ISSUES WE CURRENTLY CAN'T USE ACEI, ARBS, CALCIUM CHANNEL BLOCKERS AND HE IS ON MAX TOLERATED DOSE OF METOPROLOL. Qualifiers: Hypertension type: essential hypertension Qualified Code(s): I10 - Essential (primary) hypertension (5) Acute renal failure Current Visit: Yes Status: Acute Plan: HE HAS THIS FROM RENAL DISEASE. NEPHROTIC SYNDROME IS THE CAUSE. BIOPSY IS DONE. REPORT IS PENDING. TALKED TO FAMILY YESTERDAY. WORSE DAILY TALKED TO DR. CHANDLER TREATMENT DEPENDS ON BIOPSY REPORT. (6) Metabolic acidosis Current Visit: Yes Status: Acute Plan: TALKED TO DR. CHANDLER TWICE. BICARB DRIP HAS BEEN STARTED. (7) Nephrotic syndrome Current Visit: Yes Status: Acute Plan: HE LOST 12 GM OF PROTEIN ON SPOT [facility]CEK AT [facility]. HE WILL GET RENAL BIOPSY IN AM. ALBUMIN IS LOW AT 1.7. HE DOES NOT EAT, HE NEEDS TO EAT. I TOLD FAMILY TO BRING HIM FOOD DAILY. BIOPSY REPORT IS PENDING. ETIOLOGY UNCLEAR. WE CAN'T DO CT SCAN NOW HIS CREAT IS HIGH. (8) Hyperkalemia Current Visit: Yes Status: Acute Plan: DAILY LAB. BICARB DRIP KAYEXALATE PRN (9) Hyperuricemia Current Visit: Yes Status: Acute Plan: NO SIGNS OF GOUT YET. (10) Hypothyroid Current Visit: No Status: Chronic Plan: ON MEDS ALREADY. WILL REDO LAB EVERY 2 MONTHS. 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
[2020-11-03] MEDS: allopurinoL 100 MG TAB PO SCH (09:00)
[2020-11-03] MEDS: HYDRALAZINE HCL 25 MG TABLET PO SCH ×3 (09:57→21:00)
[2020-11-03] MEDS: predniSONE 1 MG TAB PO SCH (09:57)
[2020-11-03] MEDS: TAMSULOSIN 0.4 MG SR CAP PO SCH (09:58)
[2020-11-03] MEDS: PYRIDOSTIGMINE 60 MG TABLET PO SCH ×3 (09:58→22:06)
[2020-11-03] MEDS: METOPROLOL XL 100 MG TAB PO SCH (09:58)
[2020-11-03] MEDS: NA CHLORIDE 0.9% 1,000 ML IV SCH ×2 (10:00)
[2020-11-03] MEDS: NACHLORIDE 0.45% 1,000 ML with NA BICARB 8.4% 150 MEQ IV SCH ×4 (10:13→14:31)
[2020-11-03 10:34] VITALS: BMI 22.5
[2020-11-03] MEDS: FLUDROCORTISONE 0.1 MG TAB PO SCH (10:46)
[2020-11-03] MEDS ORDERED: NACHLORIDE 0.45% 1,000 ML with NA BICARB 8.4% 150 MEQ IV SCH ×2 (11:00)
[2020-11-03 11:33] LABS: HIV AG/AB 4TH GEN Non-reactive (Non-reactive)
[2020-11-03 17:14] LABS: Hepatitis C Virus RNA (PCR)log <1.18 log IU/mL
--- NOTE | 2020-11-03 20:56 | RAD REPORT ---
EXAM DESCRIPTION: US - Renal Ultrasound-Complete - 11/03/2020 7:44 pm CLINICAL HISTORY: attention renal vein COMPARISON: Abdomen Exam Complete dated 10/14/2020; Renal Biopsy\CT dated 11/02/2020 FINDINGS: The right kidney measures 10.2 x 5.4 x 4.7 cm. The left kidney measures 11.5 x 5.8 x 5.0 cm. Cortical thickness is normal. Echogenicity is slightly increased. This is nonspecific but could i ndicate underlying medical renal disease. No hydronephrosis of either kidney. Fullness of the left re nal pelvis matches the prior day CT study and is believed to be baseline. No left-sided perinephric h ematoma or mass identified. Mostly contracted urinary bladder shows no gross abnormality. Obscuring bowel and body habitus affects precluded evaluation of the renal veins. IMPRESSION: No hydronephrosis or suspicious renal mass. No left renal perinephric mass or hematoma. Renal veins could not be adequately visualized for assessment.
[2020-11-03] MEDS ORDERED: SOD FERRIC GLUC COMPLX/SUCROSE 125 MG in NA CHLORIDE 0.9% 250 ML IV SCH (23:00)
--- NOTE | 2020-11-04 00:43 | PN ---
Date of Progress Note: 11/03/2020 Reason: Myasthenia, renal failure. History: The patient's myasthenia is stable. Renal function remains problematic to a slightly worse , creatinine increasing up to 3.5 today. Kidney biopsy occurred without. Physical Examination: Vital Signs: 97.4, 73, 17, 119/58. General: He is awake, alert. HEENT: Prominent presbycusis. Bilateral ptosis. Ocular motion full. Mora full. Slight dysarthr ia noted today. Extremities: Strength full. Sensation intact. Reflexes symmetric. Pertinent Labs: His creatinine as noted. Rheumatoid factor negative. HIV nonreactive. Impression: 1.Myasthenia gravis, stable. 2.Renal failure. The patient may need dialysis and per Nephrology team. Plan: Continue the prednisone and Mestinon at present dosing. I do agree prognosis appears guarded at present. We will continue to follow with you. BK/MODL Voice ID: [id number] Report ID: [id number]
--- NOTE | 2020-11-04 01:43 | CON ---
Date of Consultation: 11/03/2020 Reason For Service: Renal failure, possible dialysis catheter. History Of Present Illness: This is a case of an 85-year-old patient, who comes to us with multiple medical problems. In the process, the patient was also found to have an elevated BUN and creatinine with acute kidney injury and the possibility of hemodialysis catheter placement is there, and they as ked me to consult for evaluation and options. Today, he has been evaluated by the renal doctor and otis minaya will decide in the next few hours if the catheter will be placed or not. I am going to let that part to them and then I will proceed depending on their evaluation. Past Medical History: Includes hypertension, myasthenia gravis, history of colon cancer, aortic regu rgitation, BPH, hypothyroidism. Past Surgical History: Include a partial colectomy, although he does not remember the details of it. Much of his information is obtained also from the family member at bedside. Social History: He does not smoke. He does not drink alcohol. Family History: Hypertension. Review of Systems: Unable to be obtained since most of the information is really obtained from the patient's and fa little member too, but he is still a cooperative person. He denies any shortness of breath or any ches t pain. Physical Examination: General: The patient is awake, alert. HEENT: Pupils anicteric. Chest: Clear. Abdomen: Soft and depressible. Laboratory Data: Blood work shows a WBC count of 6.8 with hemoglobin of 9.4. INR of 0.87. Potassiu m initially was 5.9, then 5.2 with a BUN of 139 and creatinine of 3.72. Assessment: An 85-year-old patient with acute renal failure, still up to this afternoon the renal do ctor believe that he is going to make the decision tonight about dialysis catheter, so the patient wa s kept n.p.o. after midnight. Today, we are feeding him since the decision to hemodialysis has not b een done yet, but n.p.o. after midnight. The patient and family understand, since I explained to the m the benefits, alternatives, and risks of hemodialysis catheter placement, which include, but not li mited to infection, bleeding, damage to adjacent structures, anesthesia complication, hemothorax, pne umothorax, DVTs, PEs, OR, even . They also understands and the family member understands that t his is a temporary catheter. If he continues with dialysis in the future, he is going to have to go to [place] for a vascular surgeon to have a more permanent access most likely in the extremities. Ho pefully, this patient will recover his kidney function. He does not have to go through this process, but if he do, we will be happy to take care of him. CRIS/SAULL Voice ID: [id number] Report ID: [id number]
--- NOTE | 2020-11-04 01:59 | PN ---
Date of Progress Note: 11/03/2020 Subjective: The patient was admitted with acute kidney injury, nephrotic range of proteinuria unknown etiology. The patient's workup is still pending. The patient had kidney biopsy yesterday, tolerated the procedure. Physical Examination: Vital Signs: Blood pressure 128/61, pulse of 66, afebrile. The patient is still voiding. No hematuria. Chest: Clear to auscultation. Heart: S1, S2. Regular. Abdomen: Soft. Nontender. Extremities: Trace edema. Neuro: Alert. No focality. Difficulty of hearing. Laboratory Data: WBC 6.8, H and H 9.4/29, platelets 159. Sodium 141, potassium 5.2, bicarb 18, BUN continue to rise 139, creatinine 3.7, GFR of 16, calcium 7.6, phosphorus 6.9, magnesium 2.7, albumin 1.4, corrected calcium is 9.6. PTH 128, vitamin D still pending. P/C ratio 6. Complement within normal limit. Rheumatoid factor was negative. LYLE is still pending. Hepatitis C was negative. HIV was negative. Serum protein electrophoresis is still pending. Current Medications: The patient on include, 1. Benadryl. 2. Mestinon. 3. Flomax. 4. Clonidine p.r.n. 5. Hydralazine 50 t.i.d. 6. Metoprolol 100. 7. Lasix. 8. Sodium bicarb drip. 9. Zofran. 10. Loperamide. 11. Florinef. 12. Levothyroxine. 13. Prednisone 2 mg. 14. Allopurinol. Assessment And Plan: 1. Acute kidney injury, nephrotic range of proteinuria, normal sized kidney, unknown etiology. Nonoliguric. Given the severe elevation in BUN even though that patient nonuremic with the presence of the acidosis and hyperkalemia, I had a long discussion with the patient for the need to initiate renal replacement therapy. The patient on agreement. We will proceed with the renal replacement therapy and we will monitor the patient. We will consult Surgery for placement of PermCath. 2. Hypertension, controlled, optimal, keep avoiding any MARCOS inhibitor or ARB. 3. Anemia with the presence of acute kidney injury and nephrotic range proteinuria. Serum protein electrophoresis is still pending. We will start the patient on IV iron as had iron deficiency anemia. 4. Acidosis, non-anion gap metabolic acidosis secondary to renal failure. Decreased bicarb drip to 50. We will consider discontinue after starting dialysis. 5. Hypocalcemia, secondary hyperpara, corrected calcium within normal limit. Given the hyperphosphatemia, I am going to start the patient on calcium carbonate. We will follow up. 6. Myasthenia gravis, as by primary and Neurology. 7. Nephrotic range of proteinuria, as above. 8. Hyperkalemia secondary to renal failure, resolved with the presence of severe disproportion of BUN and creatinine. I am going to go ahead and send for fecal occult. Time spent discussing with the patient, examining the patient, exam [id number], placing order, discussing with staff and other consulting include Primary 45 minutes. BHAVIK Voice ID: [id number] Report ID: [id number] MTDD
[2020-11-04 06:09] LABS: Albumin 1.5 g/dL (3.4-5.0); Magnesium 2.9 mg/dL (1.8-2.4); Phosphorus 8.3 mg/dL (2.5-4.9); Potassium 4.5 mmol/L (3.5-5.1)
[2020-11-04] MEDS: LEVOTHYROXINE SOD 0.025 MG TAB PO SCH (06:16)
[2020-11-04] MEDS: CALCIUM CARBONATE CHEW 500MG TAB PO SCH ×3 (07:30→16:25)
[2020-11-04] MEDS: METOPROLOL XL 100 MG TAB PO SCH (08:34)
[2020-11-04] MEDS: FLUDROCORTISONE 0.1 MG TAB PO SCH (08:36)
[2020-11-04] MEDS: HYDRALAZINE HCL 25 MG TABLET PO SCH ×3 (08:36→20:42)
[2020-11-04] MEDS: PYRIDOSTIGMINE 60 MG TABLET PO SCH ×3 (08:36→20:42)
[2020-11-04] MEDS: TAMSULOSIN 0.4 MG SR CAP PO SCH (08:36)
[2020-11-04] MEDS: allopurinoL 100 MG TAB PO SCH (08:37)
[2020-11-04] MEDS: predniSONE 1 MG TAB PO SCH (08:37)
[2020-11-04] MEDS ORDERED: NA CHLORIDE 0.9% 100 ML IV ONE (08:56)
[2020-11-04] MEDS ORDERED: LIDOCAINE 1% MPF 30 ML VIAL ONE (08:56)
[2020-11-04] MEDS ORDERED: HEPARIN 5000 UNIT/ML 1 ML VIAL ONE (08:56)
[2020-11-04] MEDS ORDERED: NS 0.9% VIAL 10 ML ONE (08:56)
[2020-11-04] MEDS ORDERED: NA CHLORIDE 0.9% 500 ML ONE (09:01)
[2020-11-04] MEDS ORDERED: CEFAZOLIN/SWI 1gm 1 GM/10 ML SYR ONE (09:07)
[2020-11-04 09:46] LABS: Absolute Lymphocytes (CBC) 0.2 K/uL (0.7-4.9); Basophils % 0.6 % (0-1.3); Hematocrit 29.9 % (39.6-49.0); Lymphocytes % 3.8 % (15.3-44.8); MPV 10.8 fL (7.6-11.3); RBC Red Blood Cell Count 3.47 M/uL (4.33-5.43)
[2020-11-04] MEDS ORDERED: LIDOCAINE 2% MPF 5 ML VIAL ONE (10:19)
[2020-11-04] MEDS ORDERED: propofoL 200 MG/20 ML VIAL IV ONE (10:19)
[2020-11-04 10:28] LABS: Blood Morphology Comment NOTED (NOT SEEN); Hypochromasia 1+; Platelet Estimate ADEQ; White Blood Cell Scan OK (OK)
[2020-11-04] MEDS ORDERED: EPHEDRINE SULF 50 MG/ML VIAL ONE (10:43)
--- NOTE | 2020-11-04 10:49 | P.BOP ---
Preoperative diagnosis: ESRD Postoperative diagnosis: same Primary procedure: 1. Placement of HD tunneled catheter R IJV Secondary procedure: 2 Interpretation of fluoroscopy Other procedure(s): 3. Right neck ultrasounnd Estimated blood loss: <10cc Specimen: none Findings: patent IJV Anesthesia: MAC Complications: None Implants: hemosplit Transferred to: Recovery Room Condition: Good
--- NOTE | 2020-11-04 11:13 | OP ---
Date of Procedure: 11/04/2020 Surgeon: Donaldo Nelson MD Preoperative Diagnosis: End-stage renal disease. Postoperative Diagnosis: End-stage renal disease. Procedures: 1.Placement of a hemodialysis HemoSplit tunneled catheter. 2.Interpretation of fluoroscopy. 3.Right neck ultrasound. Anesthesia: MAC plus local. Implant: A HemoSplit hemodialysis catheter tunnel. Indications: This is the case of a male, who comes to us with renal failure. The renal doctor had r equested HemoSplit hemodialysis catheter. The patient and the family fully explained the benefits, a lternatives, and risks, which include, but not limited to infection, bleeding, damage to adjacent str uctures, anesthesia complication, pneumothorax, hemothorax, pneumothorax, DVTs, PE, ID, and even deat h. He also understood this may not relieve any symptoms. He might need more than one surgical inter vention. He understood, signed the consent. They also explained this is a temporary catheter. As s oon as this is not in use or if the renal doctor believe this is going to be long-term hemodialysis, he has to find somebody in [place] a vascular surgeon to place a hemodialysis catheter more permanent . Under those conditions, they understood, they signed a consent. Procedure In Detail: The patient was brought to the operating room, placed in supine position. Anes thesia was done without complication. Right neck and chest area were prepped and draped in a usual s terile fashion. Ultrasound of the neck was done showing a compressible and patent internal jugular v ein. So, we placed an 18-gauge needle in the right internal jugular vein at the first attempt. A gu idewire was passed through, got into superior vena cavity using fluoroscopy and needle was removed. After that, we made a right upper chest incision. We tunneled a HemoSplit hemodialysis catheter unde rneath the skin to meet that new incision in the right upper neck. We proceeded to use dilators sequ entially through using fluoroscopy guidance and also introducer sheath. Guidewire was removed with t he introducer catheter and the catheter was placed then and the introducer sheath was peeled off. Th e line looks in place and that was done under fluoroscopy guidance. Excellent backflow and inflow. The line was secured in place with 3-0 nylon and Steri-Strips on the right neck region and it flushed with heparinized solution. The patient tolerated the procedure well. The patient was brought back from Trendelenburg position to normal position, and the patient is on way to recovery and he is going to get a stat chest x-ray. The patient tolerated the procedure well. RAYMOND Voice ID: [id number] Report ID: [id number]
--- NOTE | 2020-11-04 11:16 | RAD REPORT ---
EXAM DESCRIPTION: RAD - Fluoroscopy <1 Hour - 11/04/2020 11:05 am CLINICAL HISTORY: Device placement central venous catheter placement FINDINGS: A central venous catheter was placed into the superior vena cava. Fluoroscopy time 0.6 min utes. Fourteen Fluoroscopic spot images are submitted. The examination was performed by Dr. Nelson
--- NOTE | 2020-11-04 11:32 | RAD REPORT ---
EXAM DESCRIPTION: Alisont Single View11/04/2020 11:25 am CLINICAL HISTORY: Device placement/central venous catheter placement IMPRESSION: Central venous catheter with its tip near the junction of the superior vena cava and rig ht atrium No pneumothorax
[2020-11-04] MEDS: NACHLORIDE 0.45% 1,000 ML with NA BICARB 8.4% 150 MEQ IV SCH ×2 (16:26)
--- NOTE | 2020-11-04 17:43 | PN ---
Date of Progress Note: 11/04/2020 Subjective: The patient was admitted with acute kidney injury, nephrotic range of proteinuria. The patient undergone kidney biopsy, waiting for the result. The patient's BUN continue to rise. The patient undergone PermCath placement today, tolerated. Physical Examination: Vital Signs: Blood pressure 144/91, pulse of 69. Chest: Clear to auscultation. Heart: S1, S2. Systolic murmur. Abdomen: No tenderness. No guarding. Extremities: No erythema. Has plus edema bilaterally. Neurological: Alert and oriented. No tremor. Laboratory Data: WBC 6, H and H 9.9/29.9. Sodium 141, potassium 4.5, bicarb 20, BUN 145, creatinine 4.1, GFR of 14, calcium 7.8, phosphorus 8.3, magnesium 2.9, albumin 1.5, corrected calcium is 9.9. Current Medications: The patient on include; 1. Flomax. 2. IV iron. 3. Calcium carbonate. 4. Clonidine p.r.n. 5. Hydralazine 50 t.i.d. 6. Metoprolol 100. 7. Bicarb drip. 8. Loperamide. 9. Zofran. 10. Fludrocortisone. 11. Levothyroxine. 12. Prednisone. 13. Allopurinol. Assessment And Plan: 1. Acute kidney injury, nephrotic range of proteinuria with history of colon cancer before. Our differential diagnosis was membranous/IgA nephropathy. We are waiting for the kidney biopsy for the patient. We will initiate renal replacement therapy today. We will start the dialysis and we will monitor. 2. Hypertension. Continue to monitor. 3. Nephrotic range of proteinuria as above. Follow up with biopsy, follow up serology. 4. Iron deficiency anemia. Continue IV iron. 5. Acidosis secondary to renal failure. Upon starting dialysis, we will discontinue bicarb drip. 6. Hyperkalemia, resolved. 7. Hematochezia with history of colon cancer before and iron deficiency anemia. We will consult GI if okay with primary, discussed with Dr. Masters. Time spent discussing with the patient, examining the patient, exam [id number], placing order, discussing with staff and other consulting include Primary 45 minutes. GARRETT/GRACIE Voice ID: [id number] Report ID: [id number] MTDJustyna
[2020-11-04 20:23] LABS: HBsAG Nonreactive (Nonreactive)
--- NOTE | 2020-11-04 21:20 | P.PN ---
Subjective Date of Service: 11/04/20 Chief Complaint: SWELLING OF LEGS, WEAKNESS MR. BARNES IS FEELING SOME BETTER. HE HAS NO CHEST PAIN. HE HAS DRY MOUTH AND WEAKNESS. MR. BARNES IS STRONGER, STARTING TO WALK SLOWLY WITH PT. DENIES ANY CHEST PAIN. HE IS STABLE HAS SOME EPIG PAIN BUT NOW HE SAYS. MR BARNES HAD TESSIO CATHETER PLACED TODAY AND WILL GET HD TODAY. Review of Systems 10-point ROS is otherwise unremarkable General: Weakness Physical Examination - Vital Signs Temperature: 96.8 F Blood Pressure: 148/67 Pulse: 65 Respirations: 16 Pulse Ox (%): 97 - Physical Exam General: Alert, Mild distress HEENT: Atraumatic, PERRLA, EOMI Neck: Supple, JVD not distended Respiratory: Clear to auscultation bilaterally, Normal air movement Cardiovascular: Regular rate/rhythm, Normal S1 S2 Gastrointestinal: Normal bowel sounds, No tenderness Musculoskeletal: No tenderness Integumentary: No rashes Neurological: Normal speech, Normal tone, Normal affect Lymphatics: No axilla or inguinal lymphadenopathy - Studies Medications List Reviewed: Yes Assessment And Plan - Current Problems (Diagnosis) (1) Severe edema Current Visit: Yes Status: Acute Plan: THIS IS FROM NEPHROTIC SYNDROME. DR. CHANDLER ON CASE. MAY NEED RENAL BIOPSY TO DECIDE TREATMENT. THERE IS NO OBVIOUS REASON FOR PARANEOPLASTIC SYNDROME. SONOGRAM SHOWS SMALL LIVER LESION BUT CT SCAN CAN'T BE DONE WITH HIGH CREATININE FOR NOW. FROM NEPHROTIC SYNDROME. BIOPSY REPORT IS PENDING. (2) History of colon cancer Current Visit: No Status: Chronic Plan: WE NEED TO MAKE SURE THAT THERE IS NO RECURRENCE OF CANCER. CT SCAN IN JUNE SHOWED SMALLER PERIRENAL LN COMPAREDE TO BEFORE SUGGESTIVE OF NON MALIGNANT PROCESS. WILL FU WITH CT SCAN WHEN CREATININE IS DOWN. PROGNOSIS IS GUARDED WITH NEPHROTIC SYNDROME AND M. GRAVIES. HOPEFULLY THERE IS NO SECONDARY CANCER CAUSING THE NEPHROTIC SYNDROME AND M GRAVIES PARANEOPLASTIC SYNDROME. (3) Myasthenia gravis Current Visit: Yes Status: Chronic Plan: THIS IS A NEW ISSUE FOR HIM FOR LAST FEW WEEKS. HE IS ON PYRIDOSTIGMINE AND SMALL DOSE OF STEROIDS. DR. BOWEN DOES NOT COME TO THIS OR ANY HOSPITAL FOR ROUNDS. (4) HTN (hypertension) Current Visit: No Status: Chronic Plan: ADD HYDRALAZINE TO THE REGIMEN YESTERDAY I ADDED CLONIDINE. WITH LOW HEART RATE AND EDEMA PLUS RENAL ISSUES WE CURRENTLY CAN'T USE ACEI, ARBS, CALCIUM CHANNEL BLOCKERS AND HE IS ON MAX TOLERATED DOSE OF METOPROLOL. Qualifiers: Hypertension type: essential hypertension Qualified Code(s): I10 - Essential (primary) hypertension (5) Acute renal failure Current Visit: Yes Status: Acute Plan: HE HAS THIS FROM RENAL DISEASE. NEPHROTIC SYNDROME IS THE CAUSE. BIOPSY IS DONE. REPORT IS PENDING. TALKED TO FAMILY YESTERDAY. WORSE DAILY TALKED TO DR. CHANDLER TREATMENT DEPENDS ON BIOPSY REPORT. (6) Metabolic acidosis Current Visit: Yes Status: Acute Plan: TALKED TO DR. CHANDLER TWICE. BICARB DRIP HAS BEEN STARTED. (7) Nephrotic syndrome Current Visit: Yes Status: Acute Plan: HE LOST 12 GM OF PROTEIN ON SPOT CHCEK AT [facility]. HE WILL GET RENAL BIOPSY IN AM. ALBUMIN IS LOW AT 1.7. HE DOES NOT EAT, HE NEEDS TO EAT. I TOLD FAMILY TO BRING HIM FOOD DAILY. BIOPSY REPORT IS PENDING. ETIOLOGY UNCLEAR. WE CAN'T DO CT SCAN NOW HIS CREAT IS HIGH. (8) Hyperkalemia Current Visit: Yes Status: Acute Plan: DAILY LAB. BICARB DRIP KAYEXALATE PRN (9) Hyperuricemia Current Visit: Yes Status: Acute Plan: NO SIGNS OF GOUT YET. (10) Hypothyroid Current Visit: No Status: Chronic Plan: ON MEDS ALREADY. WILL REDO LAB EVERY 2 MONTHS. 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 EGD AND CRC ARE DUE. HIS CONDITION IS WEAK TO GO FOR COLONSCOPY. DISCUSSED WITH FAMILY . OVERALL PROGNOSIS IS POOR.
[2020-11-05 02:40] VITALS: O2SAT 94
[2020-11-05 05:06] LABS: Albumin 1.4 g/dL (3.4-5.0); Magnesium 3.3 mg/dL (1.8-2.4); Potassium 4.2 mmol/L (3.5-5.1)
[2020-11-05 05:12] LABS: Phosphorus 8.7 mg/dL (2.5-4.9)
[2020-11-05] MEDS: LEVOTHYROXINE SOD 0.025 MG TAB PO SCH (05:46)
[2020-11-05] MEDS: CALCIUM CARBONATE CHEW 500MG TAB PO SCH ×3 (07:30→16:30)
[2020-11-05] MEDS: HYDRALAZINE HCL 25 MG TABLET PO SCH ×3 (09:00→22:18)
--- NOTE | 2020-11-05 13:03 | PN ---
Date of Progress Note: 11/05/2020 Subjective: The patient was admitted with acute kidney injury. The patient had nephrotic range proteinuria. The patient had history of colon cancer before. The patient underwent biopsy on the yesterday. I called [facility]. Did not receive the biopsy yet. Today was his first dialysis. Objective: Vital Signs: Blood pressure 154/60, pulse of 70, afebrile. Chest: Clear to auscultation. Heart: S1, S2 regular. Abdomen: Soft. Nontender. Extremities: No edema. Neurologic: Alert. No focality. Laboratory Data: WBC 6, H and H 9.9/29.9. Sodium 140, potassium 4.2, bicarb 23, BUN 147, creatinine 4.2, calcium 7.6, phos 8.7, magnesium 3.3, albumin 1.3, corrected calcium is 9.6. Current Medications: The patient on include risperidone, Flomax, IV iron, calcium carbonate, clonidine p.r.n., hydralazine 50 t.i.d., metoprolol 100 b.i.d., sodium bicarb drip, Zofran, loperamide, fludrocortisone, levothyroxine, prednisone, allopurinol. Assessment And Plan: 1. Acute kidney injury with nephrotic range proteinuria, normal size kidney or differential IgA nephropathy/membraneous. The patient had a positive LYLE 1:80 which raises the possibility of SLE. I am going to follow up with the biopsy to see if it has been read or not. For the time being, we will continue dialysis. I am going to arrange for another session of dialysis tomorrow given the significant elevation in the urea. We will follow up the patient. 2. Hypertension. We will utilize the blood pressure to establish better volume control. 3. We will start hemo ultrafiltration tomorrow. 4. I am going to go ahead and decrease the hydralazine to 25 mg to allow more blood pressure for ultrafiltration and we will follow up. 5. Hematochezia. The patient had history of colon cancer with nephrotic range proteinuria and acute kidney injury. The patient needs to be screened back regarding his colon cancer. We will discuss with Dr. Masters if he is agreeable for GI consult and we will follow. GI had been called. The patient not strong enough for any procedure for the time being. We will follow up. 6. Anasarca secondary to nephrotic range proteinuria, renal failure. We will try to establish better volume control with ultrafiltration. 7. Secondary hyperparathyroid. Continue calcitriol and calcium carbonate. Time spent discussing with the patient, examining the patient, exam [id number], placing order, discussing with staff and other consulting include Primary 45 minutes. BHAVIK Voice ID: [id number] Report ID: [id number] TONY
[2020-11-05] MEDS: TAMSULOSIN 0.4 MG SR CAP PO SCH (13:35)
[2020-11-05] MEDS: predniSONE 1 MG TAB PO SCH (13:35)
[2020-11-05] MEDS: PYRIDOSTIGMINE 60 MG TABLET PO SCH ×3 (13:35→22:18)
[2020-11-05] MEDS: FLUDROCORTISONE 0.1 MG TAB PO SCH (13:35)
[2020-11-05] MEDS: METOPROLOL XL 100 MG TAB PO SCH (13:36)
[2020-11-05] MEDS: allopurinoL 100 MG TAB PO SCH (13:36)
[2020-11-05] MEDS ORDERED: MAGNESIUM CITRATE 300 ML BOT PO SCH (16:00)
[2020-11-05] MEDS ORDERED: GOLYTELY 4000 ML PO SCH (16:00)
--- NOTE | 2020-11-05 21:03 | PN ---
Date of Progress Note: 11/05/2020 Reason: Myasthenia. Interval History: The patient's myasthenia is stable, dysarthria is not prominent today. He did hav e an episode of dyspnea yesterday. It is unclear that it had been related to anxiety. He is better today. He is thinking quite clearly. He dialyzed today, looks like the plan is for dialysis tomorro w as well. Hemoglobin 9.9. GI has been consulted. History of colon carcinoma. Fecal occult blood positive. Creatinine 4.2, but carbon dioxide 23 after dialysis. Objective: General: He is awake, alert, asymmetric ptosis, right lid greater than left. Neck: Flexion, extension full. Full strength. Extremities: Strength full. Sensation intact. Reflexes symmetric. Pertinent Laboratory Data: As noted. Renal biopsy still pending. Impression: Myasthenia gravis, stable. Plan: Continue Mestinon and prednisone. We will continue to follow with you. ZAID/GRACIE Voice ID: [id number] Report ID: [id number]
--- NOTE | 2020-11-05 21:17 | P.PN ---
Subjective Date of Service: 11/05/20 Chief Complaint: SWELLING OF LEGS, WEAKNESS MR. BARNES IS FEELING SOME BETTER. HE HAS NO CHEST PAIN. HE HAS DRY MOUTH AND WEAKNESS. MR. BARNES IS STRONGER, STARTING TO WALK SLOWLY WITH PT. DENIES ANY CHEST PAIN. HE IS STABLE HAS SOME EPIG PAIN BUT NOW HE SAYS. MR BARNES HAD TESSIO CATHETER PLACED TODAY AND WILL GET HD TODAY. HE DID GET HD TODAY. MEDICALLY STABLE. Physical Examination - Vital Signs Temperature: 96.7 F Blood Pressure: 182/84 Pulse: 74 Respirations: 19 Pulse Ox (%): 95 - Physical Exam General: Mild distress HEENT: Atraumatic, PERRLA, EOMI Neck: Supple, JVD not distended Respiratory: Clear to auscultation bilaterally, Normal air movement Cardiovascular: Regular rate/rhythm, Normal S1 S2 Gastrointestinal: Normal bowel sounds, No tenderness Musculoskeletal: No tenderness Integumentary: No rashes Neurological: Normal speech, Normal tone, Normal affect Lymphatics: No axilla or inguinal lymphadenopathy - Studies Medications List Reviewed: Yes Assessment And Plan - Current Problems (Diagnosis) (1) Severe edema Current Visit: Yes Status: Acute Plan: THIS IS FROM NEPHROTIC SYNDROME. DR. CHANDLER ON CASE. MAY NEED RENAL BIOPSY TO DECIDE TREATMENT. THERE IS NO OBVIOUS REASON FOR PARANEOPLASTIC SYNDROME. SONOGRAM SHOWS SMALL LIVER LESION BUT CT SCAN CAN'T BE DONE WITH HIGH CREATININE FOR NOW. FROM NEPHROTIC SYNDROME. BIOPSY REPORT IS PENDING. (2) History of colon cancer Current Visit: No Status: Chronic Plan: WE NEED TO MAKE SURE THAT THERE IS NO RECURRENCE OF CANCER. CT SCAN IN JUNE SHOWED SMALLER PERIRENAL LN COMPAREDE TO BEFORE SUGGESTIVE OF NON MALIGNANT PROCESS. WILL FU WITH CT SCAN WHEN CREATININE IS DOWN. PROGNOSIS IS GUARDED WITH NEPHROTIC SYNDROME AND M. GRAVIES. HOPEFULLY THERE IS NO SECONDARY CANCER CAUSING THE NEPHROTIC SYNDROME AND M GRAVIES PARANEOPLASTIC SYNDROME. (3) Myasthenia gravis Current Visit: Yes Status: Chronic Plan: THIS IS A NEW ISSUE FOR HIM FOR LAST FEW WEEKS. HE IS ON PYRIDOSTIGMINE AND SMALL DOSE OF STEROIDS. DR. BOWEN DOES NOT COME TO THIS OR ANY HOSPITAL FOR ROUNDS. (4) HTN (hypertension) Current Visit: No Status: Chronic Plan: ADD HYDRALAZINE TO THE REGIMEN YESTERDAY I ADDED CLONIDINE. WITH LOW HEART RATE AND EDEMA PLUS RENAL ISSUES WE CURRENTLY CAN'T USE ACEI, ARBS, CALCIUM CHANNEL BLOCKERS AND HE IS ON MAX TOLERATED DOSE OF METOPROLOL. Qualifiers: Hypertension type: essential hypertension Qualified Code(s): I10 - Essential (primary) hypertension (5) Acute renal failure Current Visit: Yes Status: Acute Plan: HE HAS THIS FROM RENAL DISEASE. NEPHROTIC SYNDROME IS THE CAUSE. BIOPSY IS DONE. REPORT IS PENDING. TALKED TO FAMILY YESTERDAY. WORSE DAILY TALKED TO DR. CHANDLER TREATMENT DEPENDS ON BIOPSY REPORT. HD DONE TODAY. STABLE MEDICALLY. (6) Metabolic acidosis Current Visit: Yes Status: Acute Plan: TALKED TO DR. CHANDLER TWICE. BICARB DRIP HAS BEEN STARTED. (7) Nephrotic syndrome Current Visit: Yes Status: Acute Plan: HE LOST 12 GM OF PROTEIN ON SPOT [facility]K AT [facility]. HE WILL GET RENAL BIOPSY IN AM. ALBUMIN IS LOW AT 1.7. HE DOES NOT EAT, HE NEEDS TO EAT. I TOLD FAMILY TO BRING HIM FOOD DAILY. BIOPSY REPORT IS PENDING. ETIOLOGY UNCLEAR. WE CAN'T DO CT SCAN NOW HIS CREAT IS HIGH. (8) Hyperkalemia Current Visit: Yes Status: Acute Plan: DAILY LAB. BICARB DRIP KAYEXALATE PRN (9) Hyperuricemia Current Visit: Yes Status: Acute Plan: NO SIGNS OF GOUT YET. (10) Hypothyroid Current Visit: No Status: Chronic Plan: ON MEDS ALREADY. WILL REDO LAB EVERY 2 MONTHS. 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 EGD AND CRC ARE DUE. HIS CONDITION IS WEAK TO GO FOR COLONSCOPY. DISCUSSED WITH FAMILY . OVERALL PROGNOSIS IS POOR. FAMILY DOES NOT WANT ANY GI PROCEDURES AT PRESENT HE IS QUITE WEAK.
[2020-11-05] MEDS: cloNIDine HCL 0.1 MG TAB PO PRN (22:18)
[2020-11-06 04:25] LABS: Albumin, (SPE) 1.9 g/dL (3.8-4.8); Alpha-1-Globulins 0.2 g/dL (0.2-0.3); Alpha-2-Globulins 0.8 g/dL (0.5-0.9); Gamma Globulins 0.5 g/dL (0.8-1.7); INTERPRETATION REPORT
[2020-11-06 05:56] LABS: Absolute Lymphocytes (CBC) 0.5 K/uL (0.7-4.9); Basophils % 0.4 % (0-1.3); Hematocrit 33.5 % (39.6-49.0); Lymphocytes % 8.6 % (15.3-44.8); MPV 10.1 fL (7.6-11.3); RBC Red Blood Cell Count 3.87 M/uL (4.33-5.43)
[2020-11-06 06:06] LABS: Potassium 4.2 mmol/L (3.5-5.1)
[2020-11-06] MEDS: CALCIUM CARBONATE CHEW 500MG TAB PO SCH ×3 (06:22→16:30)
[2020-11-06] MEDS: LEVOTHYROXINE SOD 0.025 MG TAB PO SCH (06:22)
[2020-11-06] MEDS: allopurinoL 100 MG TAB PO SCH (09:00)
[2020-11-06] MEDS: METOPROLOL XL 100 MG TAB PO SCH (09:00)
[2020-11-06] MEDS: PYRIDOSTIGMINE 60 MG TABLET PO SCH ×3 (09:30→21:10)
[2020-11-06] MEDS: HYDRALAZINE HCL 25 MG TABLET PO SCH ×3 (09:30→21:11)
[2020-11-06] MEDS: FLUDROCORTISONE 0.1 MG TAB PO SCH (09:30)
[2020-11-06] MEDS: TAMSULOSIN 0.4 MG SR CAP PO SCH (09:30)
[2020-11-06] MEDS: predniSONE 1 MG TAB PO SCH (09:31)
--- NOTE | 2020-11-06 10:37 | P.PN ---
Subjective Date of Service: 11/06/20 Chief Complaint: SWELLING OF LEGS, WEAKNESS Subjective Pt admitted with TEJAS ,and edema, have nephrotic syndrome, started on HD Today denied ,fever chills, nausea or vomiting will dc Florinef and increase hydralazine HD today pending biopsy results Physical exam general: AAOX3, NAD , thin Neck; Supple, No elevated JVD hear: RRR, normal S1,2 no murmur or rub Chest: CTAB, no rales or wheezes Abdomen: Soft , Nt Extremities +2 edema Assessment And Plan: Acute kidney injury with nephrotic range proteinuria, possibly due to membranous disease US no hydro started on HD S/p biopsy , pending results serology W/U LYLE 1:80 , complement wnl , less likely pt have lupus considering age and normal complements HTN will increase Hydralazine and stop Florinef nephrotic syndrome possibly due to membranous disease S/P biopsy Cont HD total time spent 45min Physical Examination - Vital Signs Temperature: 96.9 F Blood Pressure: 194/83 Pulse: 67 Respirations: 20 Pulse Ox (%): 96 - Studies Medications List Reviewed: Yes
--- NOTE | 2020-11-06 13:58 | P.PN ---
Subjective Date of Service: 11/06/20 Chief Complaint: SWELLING OF LEGS, WEAKNESS Subjective: Improving MR. BARNES IS FEELING SOME BETTER. HE HAS NO CHEST PAIN. HE HAS DRY MOUTH AND WEAKNESS. MR. BARNES IS STRONGER, STARTING TO WALK SLOWLY WITH PT. DENIES ANY CHEST PAIN. HE IS STABLE HAS SOME EPIG PAIN BUT NOW HE SAYS. MR BARENS HAD TESSIO CATHETER PLACED TODAY AND WILL GET HD TODAY. HE DID GET HD TODAY. MEDICALLY STABLE. HE HAD HD YESTERDAY. HE IS BETTER ALREADY. Review of Systems 10-point ROS is otherwise unremarkable General: Weakness, Malaise Physical Examination - Vital Signs Temperature: 96.9 F Blood Pressure: 194/83 Pulse: 67 Respirations: 20 Pulse Ox (%): 96 - Physical Exam General: Oriented x3, Cachectic, Mild distress HEENT: Atraumatic, PERRLA, EOMI Neck: Supple, JVD not distended Respiratory: Clear to auscultation bilaterally, Normal air movement Cardiovascular: Regular rate/rhythm, Normal S1 S2 Gastrointestinal: Normal bowel sounds, No tenderness Musculoskeletal: No tenderness Integumentary: No rashes Neurological: Normal speech, Normal tone, Normal affect Lymphatics: No axilla or inguinal lymphadenopathy - Studies Medications List Reviewed: Yes Assessment And Plan - Current Problems (Diagnosis) (1) Severe edema Current Visit: Yes Status: Acute Plan: THIS IS FROM NEPHROTIC SYNDROME. DR. CHANDLER ON CASE. MAY NEED RENAL BIOPSY TO DECIDE TREATMENT. THERE IS NO OBVIOUS REASON FOR PARANEOPLASTIC SYNDROME. SONOGRAM SHOWS SMALL LIVER LESION BUT CT SCAN CAN'T BE DONE WITH HIGH CREATININE FOR NOW. FROM NEPHROTIC SYNDROME. BIOPSY REPORT IS PENDING. (2) History of colon cancer Current Visit: No Status: Chronic Plan: WE NEED TO MAKE SURE THAT THERE IS NO RECURRENCE OF CANCER. CT SCAN IN JUNE SHOWED SMALLER PERIRENAL LN COMPAREDE TO BEFORE SUGGESTIVE OF NON MALIGNANT PROCESS. WILL FU WITH CT SCAN WHEN CREATININE IS DOWN. PROGNOSIS IS GUARDED WITH NEPHROTIC SYNDROME AND M. GRAVIES. HOPEFULLY THERE IS NO SECONDARY CANCER CAUSING THE NEPHROTIC SYNDROME AND M GRAVIES PARANEOPLASTIC SYNDROME. (3) Myasthenia gravis Current Visit: Yes Status: Chronic Plan: THIS IS A NEW ISSUE FOR HIM FOR LAST FEW WEEKS. HE IS ON PYRIDOSTIGMINE AND SMALL DOSE OF STEROIDS. DR. BOWEN DOES NOT COME TO THIS OR ANY HOSPITAL FOR ROUNDS. (4) HTN (hypertension) Current Visit: No Status: Chronic Plan: ADD HYDRALAZINE TO THE REGIMEN YESTERDAY I ADDED CLONIDINE. WITH LOW HEART RATE AND EDEMA PLUS RENAL ISSUES WE CURRENTLY CAN'T USE ACEI, ARBS, CALCIUM CHANNEL BLOCKERS AND HE IS ON MAX TOLERATED DOSE OF METOPROLOL. Qualifiers: Hypertension type: essential hypertension Qualified Code(s): I10 - Essential (primary) hypertension (5) Acute renal failure Current Visit: Yes Status: Acute Plan: HE HAS THIS FROM RENAL DISEASE. NEPHROTIC SYNDROME IS THE CAUSE. BIOPSY IS DONE. REPORT IS PENDING. TALKED TO FAMILY YESTERDAY. WORSE DAILY TALKED TO DR. CHANDLER TREATMENT DEPENDS ON BIOPSY REPORT. HD DONE TODAY. STABLE MEDICALLY. HE WILL BE ABLE TO GO HOME IN AM. (6) Metabolic acidosis Current Visit: Yes Status: Acute Plan: TALKED TO DR. CHANDLER TWICE. BICARB DRIP HAS BEEN STARTED. (7) Nephrotic syndrome Current Visit: Yes Status: Acute Plan: HE LOST 12 GM OF PROTEIN ON SPOT CHCEK AT [facility]. HE WILL GET RENAL BIOPSY IN AM. ALBUMIN IS LOW AT 1.7. HE DOES NOT EAT, HE NEEDS TO EAT. I TOLD FAMILY TO BRING HIM FOOD DAILY. BIOPSY REPORT IS PENDING. ETIOLOGY UNCLEAR. WE CAN'T DO CT SCAN NOW HIS CREAT IS HIGH. (8) Hyperkalemia Current Visit: Yes Status: Acute Plan: DAILY LAB. BICARB DRIP KAYEXALATE PRN (9) Hyperuricemia Current Visit: Yes Status: Acute Plan: NO SIGNS OF GOUT YET. (10) Hypothyroid Current Visit: No Status: Chronic Plan: ON MEDS ALREADY. WILL REDO LAB EVERY 2 MONTHS. 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 EGD AND CRC ARE DUE. HIS CONDITION IS WEAK TO GO FOR COLONSCOPY. DISCUSSED WITH FAMILY . OVERALL PROGNOSIS IS POOR. FAMILY DOES NOT WANT ANY GI PROCEDURES AT PRESENT HE IS QUITE WEAK.
[2020-11-06] MEDS: NEPRO SHAKE 237 ML CAN PO SCH (21:00)
[2020-11-06 22:25] LABS: Vitamin D 1,25-Dihydroxy Total <8 pg/mL (18-72); Vitamin D,1,25-OH2, D2 <8 pg/mL
[2020-11-07 05:33] LABS: Absolute Lymphocytes (CBC) 0.3 K/uL (0.7-4.9); Basophils % 0.1 % (0-1.3); Hematocrit 29.8 % (39.6-49.0); Lymphocytes % 5.9 % (15.3-44.8); MPV 9.9 fL (7.6-11.3); RBC Red Blood Cell Count 3.46 M/uL (4.33-5.43)
[2020-11-07] MEDS: CALCIUM CARBONATE CHEW 500MG TAB PO SCH (06:51)
[2020-11-07] MEDS: LEVOTHYROXINE SOD 0.025 MG TAB PO SCH (06:51)
[2020-11-07] MEDS: HYDRALAZINE HCL 25 MG TABLET PO SCH (09:00)
[2020-11-07] MEDS: TAMSULOSIN 0.4 MG SR CAP PO SCH (09:00)
[2020-11-07] MEDS: NEPRO SHAKE 237 ML CAN PO SCH (09:00)
[2020-11-07] MEDS: PYRIDOSTIGMINE 60 MG TABLET PO SCH (09:00)
--- NOTE | 2020-11-07 13:03 | RAD REPORT ---
EXAM DESCRIPTION: CT - Chest For Pe Angio - 11/07/2020 12:40 pm CLINICAL HISTORY: Chest pain. PE COMPARISON: Abdomen Pelvis W Contrast dated 11/07/2020 TECHNIQUE: CT angiogram of the pulmonary arteries was performed with MIP. All CT scans are performed using dose optimization technique as appropriate and may include automated exposure control or mA/KV adjustment according to patient size. FINDINGS: No evidence of pulmonary thromboembolism. No acute aortic finding demonstrated. Linear atelectasis is present in both lung bases. Moderate to large bilateral pleural effusions. No concerning bony finding. IMPRESSION: No evidence of pulmonary thromboembolism. Moderate to large bilateral pleural effusions with atelectasis in both lung bases.
--- NOTE | 2020-11-07 13:06 | RAD REPORT ---
EXAM DESCRIPTION: CTAbdomen Pelvis W Contrast - 11/07/2020 12:41 pm CLINICAL HISTORY: Abdominal pain. PE COMPARISON: Abdomen Pelvis W Contrast dated 06/17/2020; Abdomen Pelvis W Contrast dated 03/14/2020 TECHNIQUE: Biphasic CT imaging of the abdomen and pelvis was performed with 100 ml non-ionic IV cont rast. All CT scans are performed using dose optimization technique as appropriate and may include automated exposure control or mA/KV adjustment according to patient size. FINDINGS: Moderate bilateral pleural effusions noted.Moderate generalized anasarca is present. The liver, spleen, pancreas, adrenal glands and kidneys are within normal limits. Aortoiliac atherosc lerosis. Mild free fluid is seen in the pelvis. No bowel obstruction, free air or abscess. The appendix is nor mal. No evidence of significant lymphadenopathy. Moderate lumbosacral degenerative changes. IMPRESSION: Moderate fluid retention pattern is seen with generalized anasarca and moderate bilatera l pleural effusions.
--- NOTE | 2020-11-07 14:12 | P.DS ---
Admission Date: 10/31/20 Discharge Date: 11/07/20 Disposition: ROUTINE DISCHARGE Discharge Condition: FAIR Reason for Admission: SWELLING OF LEGS, WEAKNESS - Problems (1) Severe edema Current Visit: Yes Status: Acute (2) History of colon cancer Current Visit: No Status: Chronic (3) Myasthenia gravis Current Visit: Yes Status: Chronic (4) HTN (hypertension) Current Visit: No Status: Chronic Qualifiers: Hypertension type: essential hypertension Qualified Code(s): I10 - Essential (primary) hypertension (5) Acute renal failure Current Visit: Yes Status: Acute (6) Metabolic acidosis Current Visit: Yes Status: Acute (7) Nephrotic syndrome Current Visit: Yes Status: Acute (8) Hyperkalemia Current Visit: Yes Status: Acute (9) Hyperuricemia Current Visit: Yes Status: Acute (10) Hypothyroid Current Visit: No Status: Chronic 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 ARMANI BARNES HAS NEW DIAGNOSIS OF M. GRAVIES. HE COMES TO OFFICE WITH EDEMA. INITIAL BLOOD WORK SHOWS NORMAL ALBUMIN AND NO SIGNS OF CHF, CKD OR CIRRHOSIS. HE DOES NOT RESPOND TO SMALL DOSE OF SPIRONOLACTONE. I STOPPED HIS LOTREL AND GAVE HIM HIGHER DOSE OF SPIROLOLACTONE. HE IS NOT DRIKING OR EATING WELL. I SUSPECTED NEPHROTIC SYNDROME WITH 3+ PROTEIN IN URINE AND DID MORE LAB TEST. HE SHOWED DEHYDRATION SO I ADVISED HIM TO GET ADMITTED. INITIALLY HE RE FUSED TO DO SO BUT HE CAME TO ER HOLD FOR ADMISSION HOSPITAL DOES NOT HAVE ANY BEDS. I STARTED HIM ON IV FLUIDS LAB SHOWS PRE RENAL AZOTEMIA. FROM YESTERDAY'S LAB I ALSO FIND THAT HE HAS NEPHROTIC RANGE PROTEINURIA. I CALLED DR. CHANDLER TO GIVE ALL DETAILS. I ALSO TALKED TO SCARLETT THE DAUGHTER TO GIVE DETAILS. MR. BARNES HAS HAD RENAL FAILURE FROM NEPHROTIC SYNDROME THAT DID NOT IMPROVE WITH HYDRATION. HE NEEDED HEMODIALYSIS. HE IS STABLE BUT NOT EATING. HE NEEDS TO EAT PROTEIN DAILY SO ALBUMIN COMES UP HIGHER. HE IS LOSING EXCESSIVE PROTEIN VIA URINE FROM NEPHROTIC SYNDROME. WE DID NOT SEE ANY SIGNS OF MALIGNANCY ON CT SCANS. FAMILY REFUSES TO GO FOR EGD AND COLONOSCOPY HE IS WEAK. WE WILL DO HD BEFORE HE GOES HOME TODAY HE JUST HAD A DOSE OF IV DYE FOR CT ANGIOGRAM AND ABDOMEN. CT ANGIO WAS DONE HE CONTINUES TO COMPLAIN OF DYSPNEA. I HAVE DISCUSSED WITH ALL 3 DAUGHTERS ABOUT HIS DIAGNOSIS AND PROGNOSIS OVER TIME. HIS RENAL BIOPSY SHOWS MINIMAL CHANGE NEPHROTIC SYNDROME PER DR Wong. Vital Signs/Physical Exam: Temp Pulse Resp BP Pulse Ox 97.7 F 79 20 185/81 H 94 11/07/20 12:00 11/07/20 12:00 11/07/20 12:00 11/07/20 12:00 11/07/20 12:00 Laboratory Data at Discharge: WBC 5.70 K/uL (4.3-10.9) 11/07/20 05:12 Hgb 9.9 g/dL (13.6-17.9) L 11/07/20 05:12 Hct 29.8 % (39.6-49.0) L 11/07/20 05:12 Plt Count 153 K/uL (152-406) 11/07/20 05:12 PT 10.0 SECONDS (9.5-12.5) 11/03/20 04:10 INR 0.87 11/03/20 04:10 APTT 27.3 SECONDS (24.3-36.9) 11/03/20 04:10 Sodium 141 mmol/L (136-145) 11/07/20 05:12 Potassium 4.0 mmol/L (3.5-5.1) 11/07/20 05:12 BUN 66 mg/dL (7-18) H D 11/07/20 05:12 Creatinine 3.45 mg/dL (0.55-1.3) H 11/07/20 05:12 Glucose 96 mg/dL (74-106) 11/07/20 05:12 Uric Acid 10.3 mg/dL (3.5-7.2) H 11/01/20 07:04 Phosphorus 8.7 mg/dL (2.5-4.9) H* 11/05/20 04:20 Magnesium 3.3 mg/dL (1.8-2.4) H 11/05/20 04:20 Total Bilirubin 0.3 mg/dL (0.2-1.0) 10/30/20 11:00 AST 13 U/L (15-37) L 10/30/20 11:00 ALT 15 U/L (12-78) 10/30/20 11:00 Alkaline Phosphatase 57 U/L (45-117) 10/30/20 11:00 Home Medications: Cholecalciferol (Vitamin D3) [Vitamin D3] 1 tab PO DAILY 03/14/20 Cyanocobalamin (Vitamin B-12) [Vitamin B12] 1,000 mcg PO DAILY 03/14/20 Levothyroxine Sodium 1 tab PO AC 03/14/20 Metoprolol Succinate [Toprol Xl] 100 mg PO DAILY 03/14/20 Tamsulosin HCl [Flomax] 1 tab PO DAILY 03/14/20 Calcium Carbonate [Tums Regular*] 500 mg PO AC tab 11/07/20 Hydralazine HCl 50 mg PO TID #270 tablet 11/07/20 Pyridostigmine [place] [Mestinon*] 60 mg PO TID tablet 11/07/20 allopurinoL [Zyloprim*] 100 mg PO DAILY #90 tab 11/07/20 cloNIDine HCL [Catapres*] 0.1 mg PO Q2HP PRN #30 tab 11/07/20 predniSONE [Prednisone*] 2 mg PO DAILY tab 11/07/20 New Medications: cloNIDine HCL [Catapres*] 0.1 mg PO Q2HP PRN #30 tab PRN Reason: HIGH BLOOD PRESSURE Hydralazine HCl 50 mg PO TID #270 tablet allopurinoL [Zyloprim*] 100 mg PO DAILY #90 tab Followup: Butch Masters MD [Primary Care Provider] -
[2020-11-07 17:56] VITALS: BP 190/74; TEMP 97
--- NOTE | 2020-11-08 01:36 | PN ---
Date of Progress Note: 11/07/2020 Chief Complaint: Acute on chronic kidney injury, nephrotic syndrome. Subjective: The patient underwent renal biopsy. The patient was started on dialysis to obtain negat jp fluid balance, control volemia, and control azotemia. Today, the patient denies PND or orthopnea . Physical Examination: Lungs: Diminished breath sounds at bases. Heart: S1, S2. Abdomen: Soft, benign. Extremities: Slight edema. Impression And Plan: 1.Acute kidney injury with nephrotic-range proteinuria. The patient underwent biopsy, results are p ending. Ultrasound did not show hydronephrosis. The patient was started on dialysis. The patient w as found to have positive LYLE test with 1:80 titer. Complement levels were within normal limit. 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 At this point, the patient may need to follow up with rheu matologist for abnormal LYLE test. 2.Hypertension. Adjust medications. Florinef will be stopped. Previously Florinef was started to control hyperkalemia. The patient will continue dialysis and low potassium diet. EB/MODL Voice ID: [id number] Report ID: [id number]
--- NOTE | 2020-11-08 12:57 | CON ---
Date of Consultation: 11/06/2020 Reason For Consultation: 1.Heme-positive stool. 2.History of colon cancer with renal failure. History Of Present Illness: Patient is an 85-year-old male with history of myasthenia gravi s, hypertension, vitamin B12 deficiency, benign prostatic hypertrophy, hypothyroidism, mild aortic re gurgitation, partial colectomy. The patient is in the hospital with swelling of the legs and weaknes s. He is found to have heme-positive stool. Patient has a history of colon cancer. Last colonoscop y was approximately 10-15 years ago. He also has renal failure with edema. With his renal failure natanael villalba had nephrotic syndrome with kidney biopsy performed along with his hypothyroidism. Past Medical History: Significant for hypertension, vitamin B12 deficiency, benign prostatic hypertr ophy, myasthenia gravis, mild aortic regurgitation, hypothyroidism, partial colectomy approximately 1 2 inches. Medications: Home medicines included: 1.Amlodipine. 2.Olmesartan. 3.Vitamin D3. 4.Vitamin B12. 5.Levothyroxine. 6.Metoprolol. 7.Flomax. Allergies: NKDA. Social History: He is , 3 children. No tobacco, quit 20 years ago. Alcohol, drinks wine and beer. Family History: Father of myocardial infarction at age 49. Mother of old age at the age 9 7. Review of Systems: Patient is 5 foot 6, 146 pounds, BMI 23.7 kg/sq m. Physical Examination: Vital Signs: Temperature of 97.2 degrees Fahrenheit, pulse 66, respirations 18, blood pressure 151/6 5, O2 saturation 93%. General: He is an elderly male, lying in bed, in no acute distress. HEENT: Normocephalic, atraumatic. Anicteric. Pupils equal, round, and reactive to light. Extraocu lar movements intact. Pharynx is clear. Neck: Supple. No masses. Respirations: Clear to auscultation bilaterally. Cardiac: Regular rate and rhythm. No gallops or rubs. Abdomen: Positive bowel sounds. Soft, nontender, nondistended. No hepatosplenomegaly. Extremities: No clubbing, cyanosis. Patient has some lower extremity edema. Neuro: Alert and oriented x3. Grossly nonfocal. Able to move all extremities well. Sensation inta ct to light touch. Laboratory Data: Patient has a white count of 5.5, hemoglobin 11.0 up from 9.9 yesterday, hematocrit 33.5, platelet count of 172, 78%, lymphocytes 9%, monocytes 12%. PT of 10.0, INR of 0.87 , PTT of 27.3. Patient's sodium 141, potassium 4.2, chloride 104, bicarb 23, BUN of 103, creatinine of 3.9, glucose 86, calcium 7.8. Potassium was elevated at 5.9 on , magnesium is 3.3, phosphorus is 8.7, albumin 1.4, with iron saturation 19.4%. Vitamin B12 of 1935. TSH elevated at 9.58. AST o f 13, ALT of 15, alkaline phosphatase 57, total protein 5.2. CT chest revealed no PE. There was moderate to large bilateral pleural effusions with atelectasis in both lung bases. CT abdomen and pelvis revealed moderate fluid retention pattern with generalized a nasarca and moderate bilateral pleural effusion. Chest x-ray, lungs are clear. Trace bilateral pleu ral effusions noted on October 30, that has increased to moderate now. Impression: 1.Heme-positive stool in the setting of history of colon cancer and last colonoscopy 10-15 years ago . The patient and and family refused colonoscopy at this time. They only want to relieve his o ther medical problems such as his hyperkalemia, his acute renal failure. His other issues currently. Last colonoscopy was done approximately 10-[address] Ziegler in [place], [place]. Patient reports them doing colonoscopies every 1-2 years for a number years after colon cancer was resected. 2.History of colon cancer. 3.Acute renal failure, improved. 4.Hyperkalemia, resolved. 5.History of hypertension, vitamin B12 deficiency, myasthenia gravis, benign prostatic hypertrophy, mild aortic regurgitation, hypothyroidism, partial colectomy approximately 12 inches from colon cance r. 6.Bilateral pleural effusions. 7.Hypoalbuminemia with an albumin of 1.4 from nephrotic syndrome and loss of protein from urine it a ppears. Recommendations: Colonoscopy, patient and family refused at this time. We will proceed with colonos copy when the patient and family agree to proceed. BC/SAULL Voice ID: [id number] Report ID: [id number]
== END 2020-11-07 18:31 | disposition home or self-care (01) | DRG 673 ==
LOC: ER 09:28 → ERHOLD 09:30 → 2ND 16:51 → OBSVTOIN 10-31 21:37
PROVIDERS: ADMIT Internal Medicine; ATTEND Internal Medicine
PROC: 0T913ZX Drainage of Left Kidney, Percutaneous Approach, Diagnostic (ICD-10-PCS; 2020-11-02)
PROC: 02HV33Z Insertion of Infusion Device into Superior Vena Cava, Percutaneous Approach (ICD-10-PCS; 2020-11-04)
PROC: BW4FZZZ Ultrasonography of Neck (ICD-10-PCS; 2020-11-04)
PROC: 0JH63XZ Insertion of Tunneled Vascular Access Device into Chest Subcutaneous Tissue and Fascia, Percutaneous Approach (ICD-10-PCS; principal; 2020-11-04 09:45)
PROC: 5A1D70Z Performance of Urinary Filtration, Intermittent, Less than 6 Hours Per Day (ICD-10-PCS; 2020-11-05)
DX: N17.9 Acute kidney failure, unspecified (principal); J96.01 Acute respiratory failure with hypoxia; E44.0 Moderate protein-calorie malnutrition; E87.2 Acidosis; I12.0 Hypertensive chronic kidney disease with stage 5 chronic kidney disease or end stage renal disease; K92.1 Melena; N18.6 End stage renal disease; G70.00 Myasthenia gravis without (acute) exacerbation; F41.9 Anxiety disorder, unspecified; D50.9 Iron deficiency anemia, unspecified; E03.9 Hypothyroidism, unspecified; E86.0 Dehydration; K76.9 Liver disease, unspecified; E87.70 Fluid overload, unspecified; E79.0 Hyperuricemia without signs of inflammatory arthritis and tophaceous disease; E06.3 Autoimmune thyroiditis; E87.5 Hyperkalemia; E83.52 Hypercalcemia; N04.9 Nephrotic syndrome with unspecified morphologic changes; Z68.23 Body mass index [BMI] 23.0-23.9, adult; Z79.890 Hormone replacement therapy; Z90.49 Acquired absence of other specified parts of digestive tract; Z79.52 Long term (current) use of systemic steroids; Z85.038 Personal history of other malignant neoplasm of large intestine; Z79.899 Other long term (current) drug therapy; Z20.822 Contact with and (suspected) exposure to COVID-19
CPT/HCPCS: 36415; 71045; 71046; 71275; 74177; 76000; 76770; 80048; 80069; 80076; 81003; 81015; 82274; 82550; 82570; 82607; 82652; 82728; 82746; 82805; 83520; 83540; 83735; 83970; 84156; 84165; 84439; 84443; 84466; 84550; 85025; 85302; 85610; 85730; 86021; 86038; 86160; 86225; 86317; 86430; 86704; 86706; 87086; 87088; 87340; 87389; 87522; 88108; 88300; 90935; 97116; 97161; 97530; C1752; G0378; J0690; J1644; J1650; J1940; J2250; J2310; J2704; J3010; J7030; J7040; Q9967; U0003

== ENCOUNTER 2020-11-29 11:19 | Emergency (ER) | payer OTHER ==
[2020-11-29] MEDS ORDERED: KETOROLAC 30 MG/ML INJ ONE (11:57)
--- NOTE | 2020-11-29 12:25 | RAD REPORT ---
EXAM DESCRIPTION: RAD - Chest Single View - 11/29/2020 12:03 pm CLINICAL HISTORY: chest wall pain, fall, trauma, left lower lateral chest ten COMPARISON: November 04, 2020 TECHNIQUE: AP portable chest image was obtained 11/29/2020 12:03 pm . FINDINGS: No pulmonary contusion or focal lung parenchymal process identifiable. Heart and vasculatu re are normal. No pneumothorax or measurable pleural fluid collection. No acute rib deformity seen. C ontinued concerns for rib fracture could be addressed with dedicated rib imaging if warranted. No acu te aortic findings suspected. IMPRESSION: No acute cardiopulmonary process. Any continued concerns for rib fracture can be addressed with dedicated imaging.
--- NOTE | 2020-11-29 14:42 | EDPHYS ---
Physician Documentation [facility] Name: Denny Longo Jr Age: 85 yrs Sex: Male : 1935 Arrival Date: 11/29/2020 Time: 11:22 Bed 2 Private MD: ED Physician Judy Warren HPI: 11/29 11:33 This 85 yrs old Male presents to ER via EMS with complaints of chest wall ma2 pain, fall, trauma . 11:33 Onset: The symptoms/episode began/occurred suddenly, 1 hour(s) ago. Associated signs ma2 and symptoms: Pertinent negatives: chest pain, diarrhea, ear ache, fever, nausea, rhinorrhea, sore throat, vomiting. Severity of symptoms: At their worst the symptoms were mild in the emergency department the symptoms are unchanged. The patient has not experienced similar symptoms in the past. tripped and fell, hit left chest, he has pain and tenderness over left lateral chest wall, no other symptoms . Historical: - Allergies: 11:32 No Known Allergies; jd3 - Home Meds: 11:37 dexamethasone 6 mg Oral tab 9 tab ONCE A WEEK [Active]; allopurinol 100 mg Oral tab 1 bp tab once daily [Active]; prednisone 20 mg Oral tab once daily [Active]; levothyroxine 25 mcg tab 1 tab once daily [Active]; tamsulosin 0.4 mg Oral cp24 1 cap once daily [Active]; mycophenolate mofetil 250 MG TAB oral tab 1 tabs 2 times per day [Active]; pyridostigmine bromide 60 mg oral tab 1 tab twice a day [Active]; escitalopram oxalate 10 mg oral tab 1 tab once daily [Active]; - Immunization history:: Adult Immunizations unknown, Adult Immunizations up to date. - Social history:: Smoking status: unknown Patient/guardian denies using alcohol, street drugs, The patient lives with family, Smoking status: Patient denies any tobacco usage or history of. - Family history:: not pertinent. ROS: 11:33 Constitutional: Negative for fever, chills, and weight loss. ma2 11:33 All other systems are negative. Exam: 11:33 Constitutional: This is a well developed, well nourished patient who is awake, alert, ma2 and in no acute distress. Head/Face: Normocephalic, atraumatic. Eyes: Pupils equal round and reactive to light, extra-ocular motions intact. Lids and lashes normal. Conjunctiva and sclera are non-icteric and not injected. Cornea within normal limits. Periorbital areas with no swelling, redness, or edema. ENT: Nares patent. No nasal discharge, no septal abnormalities noted. Tympanic membranes are normal and external auditory canals are clear. Oropharynx with no redness, swelling, or masses, exudates, or evidence of obstruction, uvula midline. Mucous membranes moist. Neck: Trachea midline, no thyromegaly or masses palpated, and no cervical lymphadenopathy. Supple, full range of motion without nuchal rigidity, or vertebral point tenderness. No Meningismus. Chest/axilla: Normal chest wall appearance and motion. mildly tender over left lower chest over ribs 10 and 11, no deformity. No lesions are appreciated. Cardiovascular: Regular rate and rhythm with a normal S1 and S2. No gallops, murmurs, or rubs. Normal PMI, no JVD. No pulse deficits. Respiratory: Lungs have equal breath sounds bilaterally, clear to auscultation and percussion. No rales, rhonchi or wheezes noted. No increased work of breathing, no retractions or nasal flaring. Abdomen/GI: Soft, non-tender, with normal bowel sounds. No distension or tympany. No guarding or rebound. No evidence of tenderness throughout. Back: No spinal tenderness. No costovertebral tenderness. Full range of motion. Skin: Warm, dry with normal turgor. Normal color with no rashes, no lesions, and no evidence of cellulitis. MS/ Extremity: Pulses equal, no cyanosis. Neurovascular intact. Full, normal range of motion. Neuro: Awake and alert, GCS 15, oriented to person, place, time, and situation. Cranial nerves II-XII grossly intact. Motor strength 5/5 in all extremities. Sensory grossly intact. Cerebellar exam normal. Normal gait. Vital Signs: 11:30 BP 155 / 65; Pulse 61; Resp 17 S; Temp 97.4(O); Pulse Ox 100% on R/A; Weight 58.97 kg jd3 (R); Height 5 ft. 6 in. (167.64 cm) (R); Pain 4/10; 12:31 BP 168 / 66; Pulse 63; Resp 16; Pulse Ox 100% ; bp 13:58 BP 153 / 71; Pulse 64; Resp 17; Pulse Ox 100% ; bp 14:52 BP 163 / 68; Pulse 71; Resp 16; Temp 97.5; Pulse Ox 100% ; bp 11:30 Body Mass Index 20.98 (58.97 kg, 167.64 cm) jd3 MDM: 11:25 Patient medically screened. ma2 11:33 Differential diagnosis: rib fracture, vs contusion vs msk pain, no abdominal injury. ma2 14:41 Data reviewed: vital signs, nurses notes. Counseling: I had a detailed discussion with ma the patient and/or guardian regarding: the historical points, exam findings, and any diagnostic results supporting the discharge/admit diagnosis, the presence of at least one elevated blood pressure reading (>120/80) during this emergency department visit, the need for outpatient follow up. Response to treatment: the patient's symptoms have markedly improved after treatment. 11/29 11:33 Order name: XRAY Chest (1 view); Complete Time: 12:49 [facility] 11/29 12:51 Order name: XRAY Ribs LEFT [facility] Administered Medications: 11:42 Drug: TORadol 30 mg Route: IVP; Site: left forearm; bp 14:55 Follow up: Response: No adverse reaction; Pain is decreased bp Disposition: 11/29/20 14:42 Discharged to Home. Impression: Other chest pain - left lower chest wall contusion. - Condition is Stable. - Discharge Instructions: Chest Wall Pain. - Prescriptions for Diclofenac Sodium 75 mg Oral Tablet Sustained Release - take 1 tablet by ORAL route 2 times per day; 30 tablet. - Medication Reconciliation Form, Thank You Letter, Antibiotic Education, Prescription Opioid Use form. - Follow up: Private Physician; When: Tomorrow; Reason: Continuance of care. Signatures: Dispatcher [employer] EDMS Karley Billingsley RN RN aa5 Everette Fitzgerald RN RN jd3 Peltier, Brian, RN RN Judy Ruffin MD MD wi2 Corrections: (The following items were deleted from the chart) 15:01 14:42 11/29/2020 14:42 Discharged to Home. Impression: Other chest pain - left lower aa5 chest wall contusion. Condition is Stable. Prescriptions for Diclofenac Sodium 75 mg Oral Tablet Sustained Release - take 1 tablet by ORAL route 2 times per day; 30 tablet. and Forms are Medication Reconciliation Form, Thank You Letter, Antibiotic Education, Prescription Opioid Use. Follow up: Private Physician; When: Tomorrow; Reason: Continuance of care. ma2
--- NOTE | 2020-11-29 14:42 | ER ---
Nurse's Notes [facility] Name: Denny Longo Jr Age: 85 yrs Sex: Male : 1935 Arrival Date: 11/29/2020 Time: 11:22 Bed 2 Private MD: Diagnosis: Other chest pain-left lower chest wall contusion Presentation: 11/29 11:25 Chief complaint: EMS states: " reported that he slipped and fell today getting up jd3 out of a chair without help. no hit to head or LOC. pt reporting left sided rib pain. no blood thinners. is also reporting that the pt is becoming more confused latently since he started dialysis. last dialysis day was Monday.". Coronavirus screen: At this time, the client does not indicate any symptoms associated with coronavirus-19. Ebola Screen: Patient negative for fever greater than or equal to 101.5 degrees Fahrenheit, and additional compatible Ebola Virus Disease symptoms. Initial Sepsis Screen: Does the patient meet any 2 criteria? No. Patient's initial sepsis screen is negative. Does the patient have a suspected source of infection? No. Patient's initial sepsis screen is negative. Risk Assessment: Do you want to hurt yourself or someone else? Patient reports no desire to harm self or others. Onset of symptoms was November 29, 2020. 11:25 Method Of Arrival: EMS: [facility] jd3 11:25 Acuity: SANTA 2 jd3 Triage Assessment: 11:30 General: Appears in no apparent distress. uncomfortable, Behavior is calm, cooperative, bp CONFUSED. Pain: Complains of pain in left lateral anterior chest. EENT: No deficits noted. Neuro: Level of Consciousness is awake, obeys commands, confused, Oriented to person, time. Cardiovascular: No deficits noted. Respiratory: No deficits noted. GI: No signs and/or symptoms were reported involving the gastrointestinal system. : No signs and/or symptoms were reported regarding the genitourinary system. Derm: No deficits noted. Musculoskeletal: No deficits noted. Historical: - Allergies: 11:32 No Known Allergies; jd3 - Home Meds: 11:37 dexamethasone 6 mg Oral tab 9 tab ONCE A WEEK [Active]; allopurinol 100 mg Oral tab 1 bp tab once daily [Active]; prednisone 20 mg Oral tab once daily [Active]; levothyroxine 25 mcg tab 1 tab once daily [Active]; tamsulosin 0.4 mg Oral cp24 1 cap once daily [Active]; mycophenolate mofetil 250 MG TAB oral tab 1 tabs 2 times per day [Active]; pyridostigmine bromide 60 mg oral tab 1 tab twice a day [Active]; escitalopram oxalate 10 mg oral tab 1 tab once daily [Active]; - Immunization history:: Adult Immunizations unknown, Adult Immunizations up to date. - Social history:: Smoking status: unknown Patient/guardian denies using alcohol, street drugs, The patient lives with family, Smoking status: Patient denies any tobacco usage or history of. - Family history:: not pertinent. Screenin:32 Abuse screen: Denies threats or abuse. Nutritional screening: No deficits noted. jd3 Tuberculosis screening: No symptoms or risk factors identified. Fall Risk Ambulatory Aid- None/Bed Rest/Nurse Assist (0 pts). Gait- Normal/Bed Rest/Wheelchair (0 pts) Mental Status- Oriented to own ability (0 pts). Total Earl Fall Scale indicates No Risk (0-24 pts). Assessment: 11:30 General: SEE TRIAGE NOTE. bp 12:30 Reassessment: No changes from previously documented assessment. Patient and/or family bp updated on plan of care and expected duration. Pain level reassessed. 13:57 Reassessment: No changes from previously documented assessment. Patient and/or family bp updated on plan of care and expected duration. Pain level reassessed. PT RETURNED FROM RAD. 14:54 Reassessment: PT D/C HOME VIA W/C WITH FAMILY, DX WITH CHEST WALL CONTUSION. bp Vital Signs: 11:30 BP 155 / 65; Pulse 61; Resp 17 S; Temp 97.4(O); Pulse Ox 100% on R/A; Weight 58.97 kg jd3 (R); Height 5 ft. 6 in. (167.64 cm) (R); Pain 4/10; 12:31 BP 168 / 66; Pulse 63; Resp 16; Pulse Ox 100% ; bp 13:58 BP 153 / 71; Pulse 64; Resp 17; Pulse Ox 100% ; bp 14:52 BP 163 / 68; Pulse 71; Resp 16; Temp 97.5; Pulse Ox 100% ; bp 11:30 Body Mass Index 20.98 (58.97 kg, 167.64 cm) [facility] ED Course: 11:22 Patient arrived in ED. em1 11:24 Everette Fitzgerald, RN is Primary Nurse. jd3 11:25 Judy Warren MD is Attending Physician. ma2 11:30 Triage completed. jd3 11:30 Maintain EMS IV. Dressing intact. Good blood return noted. Site clean \\T\\ dry. Gauge \\T\\ bp site: 20 G LEFT FA. 11:31 Arm band placed on. jd3 11:33 Patient has correct armband on for positive identification. Bed in low position. Call [facility] light in reach. Side rails up X2. electronic device monitor on. Pulse ox on. NIBP on. 12:01 XRAY Chest (1 view) In Process Unspecified. EDMS 13:51 XRAY Ribs LEFT In Process Unspecified. EDMS 14:54 No provider procedures requiring assistance completed. IV discontinued, intact, bp bleeding controlled, No redness/swelling at site. Pressure dressing applied. Administered Medications: 11:42 Drug: TORadol 30 mg Route: IVP; Site: left forearm; bp 14:55 Follow up: Response: No adverse reaction; Pain is decreased bp Outcome: 14:42 Discharge ordered by . ma2 14:54 Discharged to home via wheelchair, with family. bp 14:54 Condition: stable 14:54 Discharge instructions given to patient, family, Instructed on discharge instructions, follow up and referral plans. medication usage, Demonstrated understanding of Prescriptions given X 1. 15:01 Patient left the ED. aa5 Signatures: Dispatcher [employer] EDFred Arthur em1 Karley Billingsley RN RN aa5 Everette Fitzgerald, CHAY RN jMasoud Zapata RN RN bp Judy Warren MD MD ma2
--- NOTE | 2020-11-29 15:01 | RAD REPORT ---
EXAM DESCRIPTION: RAD - Ribs Left - 11/29/2020 1:52 pm CLINICAL HISTORY: Fall, left-sided rib pain COMPARISON: Portable chest same date FINDINGS: Multiple supine left rib images obtained. Patient was unable to stand for traditional repe at imaging acquisition. No displaced rib fracture is seen and no non-displaced rib fractures suspected. No aggressive rib les ion. No underlying pneumothorax, effusion, infiltrate or pulmonary contusion. IMPRESSION: Negative left rib series.
[2020-11-29 15:06] VITALS: O2SAT 100
[2020-11-29 15:10] VITALS: BP 163/68; TEMP 97.5
== END 2020-11-29 15:01 | disposition home or self-care (01) ==
LOC: ER 11:19
DX: S20.212A Contusion of left front wall of thorax, initial encounter (principal); W01.0XXA Fall on same level from slipping, tripping and stumbling without subsequent striking against object, initial encounter; Y93.01 Activity, walking, marching and hiking; Y92.9 Unspecified place or not applicable
CPT/HCPCS: 71045; 96374; 99284

== ENCOUNTER 2020-11-29 23:20 | Inpatient (IN) | payer OTHER ==
[2020-11-30 00:14] LABS: Absolute Lymphocytes (CBC) 0.4 K/uL (0.7-4.9); Basophils % 0.2 % (0-1.3); RBC Red Blood Cell Count 3.11 M/uL (4.33-5.43)
[2020-11-30 00:17] LABS: Protime INR 0.89
[2020-11-30 00:31] LABS: Albumin 1.7 g/dL (3.4-5.0); Bilirubin Direct 0.1 mg/dL (0-0.2); Bilirubin Total 0.4 mg/dL (0.2-1.0); Potassium 3.7 mmol/L (3.5-5.1); Protein, Total 4.9 g/dL (6.4-8.2); Troponin (Emerg Dept Use Only) 0.04 ng/mL (0.0-0.045)
[2020-11-30 00:44] LABS: Urine Blood 2+ (NEG); Urine Glucose TRACE (NEG); Urine Protein 3+ (NEG); Urine Specific Gravity >1.030 (1.005-1.030); Urine pH 5.5 (5.0-7.0)
[2020-11-30 00:44] LABS: Barbiturates NEGATIVE (NEGATIVE); Benzodiazepines NEGATIVE (NEGATIVE); Cocaine NEGATIVE (NEGATIVE); METHAMPHETAM NEGATIVE (NEGATIVE); Methadone NEGATIVE (NEGATIVE); Opiates NEGATIVE (NEGATIVE); Phencyclidine NEGATIVE (NEGATIVE); THC Cannibis NEGATIVE (NEGATIVE)
[2020-11-30 00:45] LABS: Urine Bacteria >50 /HPF (NONE SEEN); Urine RBC <5 /HPF (NONE SEEN)
[2020-11-30 01:33] LABS: Anisocytosis 1+; Blood Morphology Comment NOTED (NOT SEEN); Burr Cells 3+; Platelet Estimate ADEQ; Polychromasia SLIGHT; White Blood Cell Scan OK (OK)
[2020-11-30] MEDS ORDERED: NA CHLORIDE 0.9% 250 ML ONE (02:03)
--- NOTE | 2020-11-30 02:39 | ER ---
Nurse's Notes [facility] Name: Denny Longo Jr Age: 85 yrs Sex: Male : 1935 Arrival Date: 11/29/2020 Time: 23:23 Bed 20 Private MD: Diagnosis: Altered mental status, unspecified Presentation: 11/29 23:20 Chief complaint: EMS states: altered mental status for 24 hours now. having visual and rr5 auditory hallucination, he stated its raining inside the house and the house will fall down. 23:20 Coronavirus screen: Client denies travel out of the [place] in the last 14 days. At this rr5 time, the client does not indicate any symptoms associated with coronavirus-19. Ebola Screen: Patient negative for fever greater than or equal to 101.5 degrees Fahrenheit, and additional compatible Ebola Virus Disease symptoms Patient denies exposure to infectious person. Patient denies travel to an Ebola-affected area in the 21 days before illness onset. Initial Sepsis Screen: Does the patient meet any 2 criteria? Altered Mental Status. Does the patient have a suspected source of infection? No. Patient's initial sepsis screen is negative. Risk Assessment: Do you want to hurt yourself or someone else? Patient reports no desire to harm self or others. Onset of symptoms was November 29, 2020. 23:20 Method Of Arrival: EMS: [facility] rr5 23:20 Acuity: SANTA 2 rr5 23:20 Note family member at bedside "he is mumbling cannot understand words". rr5 Historical: - Allergies: 23:37 No Known Allergies; rr5 - Home Meds: 23:20 allopurinol 100 mg Oral tab 1 tab once daily [Active]; dexamethasone 6 mg Oral tab 9 rr5 tab once a week [Active]; levothyroxine 25 mcg tab 1 tab once daily [Active]; mycophenolate mofetil 250 MG TAB Oral tab 1 tabs 2 times per day [Active]; escitalopram oxalate 10 mg Oral tab 1 tab once daily [Active]; prednisone 20 mg Oral tab once daily [Active]; pyridostigmine bromide 60 mg Oral tab 1 tab twice a day [Active]; tamsulosin 0.4 mg Oral cp24 1 cap once daily [Active]; - PMHx: 23:20 Hypertension; Hypothyroidism; rr5 23:37 myasthenia gravis; Dialysis; rr5 - PSHx: 23:20 dialysis port right chest; rr5 - Immunization history:: Adult Immunizations up to date. - Social history:: Smoking status: unknown. Screenin:34 Abuse screen: Denies threats or abuse. Denies injuries from another. Nutritional rr5 screening: No deficits noted. Tuberculosis screening: No symptoms or risk factors identified. Fall Risk Secondary diagnosis (15 points) AMS. IV access (20 points). Mental Status- Overestimates/Forgets Limitations (15 pts.). Total Earl Fall Scale indicates High Risk Score (45 or more points). Fall prevention measures have been instituted. Side Rails Up X 2 Placed Close to Nursing Station Frequent Obs/Assessments Occuring Family Present and informed to notify staff if the need to leave the bedside As available patient and family educated on Fall Prevention Program and Strategies. Assessment: 11/30 00:00 General: Appears in no apparent distress. comfortable, Behavior is calm, cooperative, rr5 quiet. Pain:. Neuro: Level of Consciousness is awake, confused, Oriented to person. Cardiovascular: Capillary refill < 3 seconds Patient's skin is warm and dry. dialysis access right chest. Respiratory: Airway is patent Respiratory effort is even, unlabored, Respiratory pattern is regular, symmetrical. GI: Abdomen is flat, non-distended. : No signs and/or symptoms were reported regarding the genitourinary system. EENT: No signs and/or symptoms were reported regarding the EENT system. Derm: Skin temperature is warm. Musculoskeletal: Capillary refill < 3 seconds. 01:10 Reassessment: Patient appears in no apparent distress at this time. mumbling and rr5 signing on the bed daughter at the bedside. awaiting for results. 02:00 Reassessment: Patient appears in no apparent distress at this time. Patient and/or rr5 family updated on plan of care and expected duration. Pain level reassessed. 02:40 Reassessment: reassess by ED provider for admission and with order made and carried rr5 out,family member agreed for the plan of care. 03:54 Reassessment: Patient appears in no apparent distress at this time. awaiting for covid rr5 result. followed up to laboratory. 04:44 Reassessment: Patient appears in no apparent distress at this time. transferred to room rr5 205,awake vital signs taken and recorded. Vital Signs: 11/29 23:20 BP 161 / 84; Pulse 78; Resp 19; Temp 97.9; Pulse Ox 100% ; rr5 23:35 Weight 57.61 kg; Height 5 ft. 7 in. (170.18 cm); rr5 11/30 01:18 BP 167 / 92; Pulse 75; Resp 18; Pulse Ox 98% ; rr5 02:10 BP 161 / 90; Pulse 76; Resp 17; Pulse Ox 99% ; rr5 02:42 BP 171 / 95; Pulse 70; Resp 19; Pulse Ox 98% ; rr5 03:23 BP 141 / 90; Pulse 74; Resp 18; Pulse Ox 97% ; rr5 04:43 BP 149 / 92; Pulse 80; Resp 22; Temp 97.8; Pulse Ox 99% ; rr5 11/29 23:35 Body Mass Index 19.89 (57.61 kg, 170.18 cm) rr5 ED Course: 11/29 23:23 Patient arrived in ED. rr5 23:23 Kailash Abbasi RN is Primary Nurse. rr5 23:24 EKG done, by ED staff, reviewed by Brant Kim MD. em 23:26 Inserted saline lock: 20 gauge in right forearm, using aseptic technique. ea 23:28 Triage completed. rr5 23:31 Brant Kim MD is Attending Physician. mh7 23:34 Arm band placed on right wrist. rr5 23:34 Patient has correct armband on for positive identification. Bed in low position. Call rr5 light in reach. Side rails up X2. Adult w/ patient. property assessment monitor on. Pulse ox on. NIBP on. 23:51 Inserted saline lock: 20 gauge in left antecubital area, using aseptic technique. Blood rr5 collected. 23:57 Chest Single View XRAY In Process Unspecified. EDMS 11/30 00:09 CT Head Brain wo Cont In Process Unspecified. EDMS 00:14 Straight cath inserted, using sterile technique, 16 Fr. Specimen obtained. Patient rr5 tolerated well. 01:24 COVID swab sent to lab. rr5 01:24 No provider procedures requiring assistance completed. Patient admitted, IV remains in rr5 place. intact, No redness/swelling at site. 02:37 Butch Masters MD is Hospitalizing Provider. mh7 04:00 Wound care: to skin peeled located on dorsum of right hand was cleaned with Betadine, rr5 dressed with Neosporin, 4X4s, Patient tolerated well. Administered Medications: 01:57 Drug: NS 0.9% 250 ml Route: IV; Rate: per protocol; Site: left antecubital; rr5 02:10 Follow up: Response: No adverse reaction; IV Status: Completed infusion; IV Intake: rr5 250ml 02:40 Drug: Ativan 0.5 mg Route: IVP; Site: left antecubital; rr5 03:50 Follow up: Response: No adverse reaction rr5 Intake: 02:10 IV: 250ml; Total: 250ml. rr5 Outcome: 02:38 Decision to Hospitalize by Provider. [facility] 04:42 Admitted to Med/surg accompanied by nurse, via stretcher, room 205, with chart, Report rr5 called to kathy Alvarez 04:42 Condition: stable 04:42 Instructed on the need for admit. 04:59 Patient left the ED. rr5 Signatures: Dispatcher [employer] EDIsaac Gilbert, RN RN Nayla Oglesby RN RN Kailash Smith RN RN rr5 Brant Kim MD MD [facility] Corrections: (The following items were deleted from the chart) 11/29 23:37 23:20 Allergies: myesthenia gravis; rr5 rr5 23:37 23:20 Immunization history: Adult Immunizations up to date, rr5 rr5 11/30 03:57 03:54 Reassessment: Patient appears in no apparent distress at this time. awaiting for rr5 covid result rr5
--- NOTE | 2020-11-30 02:39 | EDPHYS ---
Physician Documentation [facility] Name: Denny Longo Jr Age: 85 yrs Sex: Male : 1935 Arrival Date: 11/29/2020 Time: 23:23 Bed 20 Private MD: ED Physician Brant Kim HPI: 11/30 00:04 This 85 yrs old Male presents to ER via EMS with complaints of Altered Mental mh7 Status. 00:04 The patient presents with confusion, Hallucinations. Onset: The symptoms/episode mh7 began/occurred just prior to arrival, today. Possible causes: unknown. 00:07 Associated signs and symptoms: Pertinent positives: confusion, hallucinations, mh7 Pertinent negatives: diarrhea, seizure, shortness of breath, vomiting, weakness. Current symptoms: In the emergency department the patient's symptoms are unchanged from the initial presentation. Patient's baseline: Neuro: alert and fully oriented, Motor: no deficits, Ambulation: walks with assist only, Speech: normal. The patient has been recently seen at the [facility] Emergency Department, yesterday. Historical: - Allergies: 11/29 23:37 No Known Allergies; rr5 - Home Meds: 23:20 allopurinol 100 mg Oral tab 1 tab once daily [Active]; dexamethasone 6 mg Oral tab 9 rr5 tab once a week [Active]; levothyroxine 25 mcg tab 1 tab once daily [Active]; mycophenolate mofetil 250 MG TAB Oral tab 1 tabs 2 times per day [Active]; escitalopram oxalate 10 mg Oral tab 1 tab once daily [Active]; prednisone 20 mg Oral tab once daily [Active]; pyridostigmine bromide 60 mg Oral tab 1 tab twice a day [Active]; tamsulosin 0.4 mg Oral cp24 1 cap once daily [Active]; - PMHx: 23:20 Hypertension; Hypothyroidism; rr5 23:37 myasthenia gravis; Dialysis; rr5 - PSHx: 23:20 dialysis port right chest; rr5 - Immunization history:: Adult Immunizations up to date. - Social history:: Smoking status: unknown. ROS: 11/30 00:07 Unable to obtain ROS due to altered mental status. mh7 Exam: 00:07 Head/Face: Normocephalic, atraumatic. Eyes: Pupils equal round and reactive to light, mh7 extra-ocular motions intact. Lids and lashes normal. Conjunctiva and sclera are non-icteric and not injected. Cornea within normal limits. Periorbital areas with no swelling, redness, or edema. Neck: Trachea midline, no thyromegaly or masses palpated, and no cervical lymphadenopathy. Supple, full range of motion without nuchal rigidity, or vertebral point tenderness. No Meningismus. Chest/axilla: Normal chest wall appearance and motion. Nontender with no deformity. No lesions are appreciated. Cardiovascular: Regular rate and rhythm with a normal S1 and S2. No gallops, murmurs, or rubs. Normal PMI, no JVD. No pulse deficits. Respiratory: Lungs have equal breath sounds bilaterally, clear to auscultation and percussion. No rales, rhonchi or wheezes noted. No increased work of breathing, no retractions or nasal flaring. Abdomen/GI: Soft, non-tender, with normal bowel sounds. No distension or tympany. No guarding or rebound. No evidence of tenderness throughout. Back: No spinal tenderness. No costovertebral tenderness. Full range of motion. Skin: Warm, dry with normal turgor. Normal color with no rashes, no lesions, and no evidence of cellulitis. MS/ Extremity: Pulses equal, no cyanosis. Neurovascular intact. Full, normal range of motion. 00:07 Constitutional: The patient appears in no acute distress, alert, awake, frail, mumbling 00:07 Neuro: Orientation: to person, Mentation: confused, mumbling, Memory: unable to test, confused, Cranial nerves: grossly normal, Cerebellar function: is grossly normal, Motor: moves all fours, Sensation: is normal, Gait: not tested. seizure activity, is not displayed by the patient, Abnormal movements: there are no abnormal movements. Vital Signs: 11/29 23:20 BP 161 / 84; Pulse 78; Resp 19; Temp 97.9; Pulse Ox 100% ; rr5 23:35 Weight 57.61 kg; Height 5 ft. 7 in. (170.18 cm); rr5 11/30 01:18 BP 167 / 92; Pulse 75; Resp 18; Pulse Ox 98% ; rr5 02:10 BP 161 / 90; Pulse 76; Resp 17; Pulse Ox 99% ; rr5 02:42 BP 171 / 95; Pulse 70; Resp 19; Pulse Ox 98% ; rr5 03:23 BP 141 / 90; Pulse 74; Resp 18; Pulse Ox 97% ; rr5 04:43 BP 149 / 92; Pulse 80; Resp 22; Temp 97.8; Pulse Ox 99% ; rr5 11/29 23:35 Body Mass Index 19.89 (57.61 kg, 170.18 cm) rr5 MDM: 02:36 Differential Diagnosis: CVA, electrolyte abnormality, alcohol intoxication, [facility] hypoglycemia, intracranial bleed, overdose, pneumonia, seizure, sepsis, UTI, volume depletion. Data reviewed: vital signs, nurses notes, old medical records, lab test result(s), cardiac enzymes, CBC, drug level(s), electrolytes, EKG, radiologic studies, CT scan, plain films. Data interpreted: Pulse oximetry: on room air is 98 %. Interpretation: normal. Counseling: I had a detailed discussion with the patient and/or guardian regarding: the historical points, exam findings, and any diagnostic results supporting the discharge/admit diagnosis, the presence of at least one elevated blood pressure reading (>120/80) during this emergency department visit, lab results, radiology results, the need for further work-up and treatment in the hospital. Response to treatment: the patient's symptoms have mildly improved after treatment. 02:38 Patient medically screened. [facility] 11/29 23:35 Order name: Acetaminophen [facility] 11/29 23:35 Order name: Basic Metabolic Panel [facility] 11/29 23:35 Order name: CBC with Diff [facility] 11/29 23:35 Order name: ETOH Level [facility] 11/29 23:35 Order name: Hepatic Function [facility] 11/29 23:35 Order name: PT-INR; Complete Time: 00:28 [facility] 11/29 23:35 Order name: Ptt, Activated; Complete Time: 00:28 [facility] 11/29 23:35 Order name: Salicylate; Complete Time: 00:50 [facility] 11/29 23:35 Order name: Urine Drug Screen; Complete Time: 00:50 [facility] 11/29 23:35 Order name: Troponin (emerg Dept Use Only); Complete Time: 00:50 [facility] 11/29 23:35 Order name: PROBNP; Complete Time: 00:50 [facility] 11/29 23:35 Order name: Acetaminophen Level; Complete Time: 00:50 EDMD 11/29 23:35 Order name: Basic Metabolic Panel; Complete Time: 00:50 [facility] 11/29 23:35 Order name: CBC with Automated Diff; Complete Time: 01:35 [facility] 11/29 23:35 Order name: Alcohol Serum/Plasma; Complete Time: 00:28 [facility] 11/29 23:35 Order name: Liver (Hepatic) Function; Complete Time: 00:50 [facility] 11/29 23:58 Order name: Glucose, Ancillary Testing; Complete Time: 00:02 [facility] 11/30 00:13 Order name: Urine Microscopic Only; Complete Time: 00:[address] [facility] 11/30 00:16 Order name: Urine Dipstick--Ancillary (enter results); Complete Time: 00:[address] [facility] 11/30 00:18 Order name: AMMONIA [facility] 11/30 00:18 Order name: CBC Smear Scan; Complete Time: 01:35 [facility] 11/30 00:19 Order name: Ammonia; Complete Time: 01:28 [facility] 11/30 00:46 Order name: Urine Culture [facility] 11/30 01:23 Order name: COVID-19 : Document "Date of Symptom Onset" if Symptomatic. [facility] 11/30 01:48 Order name: Type and Screen [facility] 11/30 02:26 Order name: Urine Culture [facility] 11/30 02:52 Order name: CBC with Automated Diff [facility] 11/30 02:52 Order name: CBC with Automated Diff [facility] 11/29 23:35 Order name: EKG; Complete Time: 23:36 [facility] 11/29 23:35 Order name: EKG - Nurse/Tech; Complete Time: 23:37 [facility] 11/29 23:35 Order name: IV Saline Lock; Complete Time: 23:37 [facility] 11/29 23:35 Order name: Labs collected and sent; Complete Time: 23:37 [facility] 11/29 23:35 Order name: Urine Dipstick-Ancillary (obtain specimen); Complete Time: 00:15 [facility] 11/29 23:35 Order name: Chest Single View XRAY [facility] 11/29 23:35 Order name: CT Head Brain wo Cont [facility] 11/30 00:13 Order name: Straight Cath - Urine; Complete Time: 00:[address] [facility] 11/30 02:52 Order name: Renal [facility] 11/30 02:52 Order name: Comprehensive Metabolic Panel EDMD 11/30 02:52 Order name: Comprehensive Metabolic Panel [facility]MD 11/30 02:52 Order name: Troponin I [facility] 11/30 02:52 Order name: Troponin I EDMS 11/30 02:52 Order name: Troponin I EDMD 11/30 03:59 Order name: SARS-COV-2 RT PCR EDMS Administered Medications: 01:57 Drug: NS 0.9% 250 ml Route: IV; Rate: per protocol; Site: left antecubital; rr5 02:10 Follow up: Response: No adverse reaction; IV Status: Completed infusion; IV Intake: rr5 250ml 02:40 Drug: Ativan 0.5 mg Route: IVP; Site: left antecubital; rr5 03:50 Follow up: Response: No adverse reaction rr5 Disposition: 11/30/20 02:38 Hospitalization ordered by Butch Masters for Inpatient Admission. Preliminary diagnosis is Altered mental status, unspecified. - Bed requested for Telemetry/MedSurg (Inpatient). - Status is Inpatient Admission. rr5 - Condition is Stable. - Problem is an ongoing problem. - Symptoms have improved. Signatures: Dispatcher [employer] EDMD Bj Reid, KITCHEN AND COUNTER WORKER-C KITCHEN AND COUNTER WORKER-Cla1 Jeannie Longo RN RN Kailash Abbasi RN RN rr5 Brant Kim MD MD 7 Corrections: (The following items were deleted from the chart) 11/29 23:37 23:20 Allergies: myesthenia gravis; rr5 rr5 23:37 23:20 Immunization history: Adult Immunizations up to date, rr5 rr5 11/30 01:34 01:24 CORONAVIRUS ordered. EDMD EDMD 04:06 02:38 Hospitalization Ordered by Butch Masters MD for Inpatient Admission. Preliminary cg diagnosis is Altered mental status, unspecified. Bed requested for Telemetry/MedSurg (Inpatient). Status is Inpatient Admission. Condition is Stable. Problem is an ongoing problem. Symptoms have improved. mh7 04:59 04:06 11/30/2020 02:38 Hospitalization Ordered by Butch Masters MD for Inpatient rr5 Admission. Preliminary diagnosis is Altered mental status, unspecified. Bed requested for Telemetry/MedSurg (Inpatient). Status is Inpatient Admission. Condition is Stable. Problem is an ongoing problem. Symptoms have improved. cg
[2020-11-30] MEDS ORDERED: ONDANSETRON 4 MG/2 ML VIAL IV PRN (02:41)
[2020-11-30] MEDS ORDERED: ACETAMINOPHEN 325 MG TABLET PO PRN (02:41)
[2020-11-30] MEDS ORDERED: ALBUTEROL 2.5 MG/3 ML NEB SOL NEB PRN (02:41)
[2020-11-30] MEDS ORDERED: LORazepam 2 MG/ML VIAL IV PRN (02:48)
[2020-11-30] MEDS ORDERED: LORazepam 2 MG/ML VIAL ONE (02:55)
[2020-11-30] MEDS ORDERED: D50W 25 GM/50 ML SYRINGE IV PRN (06:19)
[2020-11-30] MEDS: D5 0.45 NS 1,000 ML IV SCH (06:24)
[2020-11-30] MEDS ORDERED: D50W 50 ML IV ONE (06:38)
[2020-11-30] MEDS: INSULIN -REGULAR HUMAN 50 UNIT/0.5 ML ML SQ SCH ×4 (07:30→21:00)
[2020-11-30 08:12] VITALS: BMI 20.3
--- NOTE | 2020-11-30 13:09 | RAD REPORT ---
EXAM DESCRIPTION: Head Brain Wo Cont 11/30/2020 12:12 AM CDT CLINICAL HISTORY: 85 years, Male, CONFUSED COMPARISON: Prior brain MRI performed 06/25/2019. FINDINGS: Multiple transaxial tomograms of the brain were obtained from the base of the skull to the vertex without contrast. 2-D multiplanar reformats and the coronal and sagittal plane were performed and reviewed. An individualized dose optimization technique, Automated Exposure Control, was utilized for the perfo rmed procedure. Brain parenchyma demonstrate mild prominence of the sulci and gyri are corresponding to mild cerebral and cerebellar atrophy. There is minimal periventricular white matter changes of microvascular ische sujey. There is no midline shift and/or mass effect. There is no evidence for acute intracranial hemorr wally. Lateral ventricles and cisterns displace normal appearance. No intra or extra axial fluid c ollections were seen. The calvarium is intact with no evidence for fracture. The visualized portions of the paranasal sinuses and orbits demonstrate to be clear. IMPRESSION: No evidence for acute intracranial hemorrhage. Mild cerebral and cerebellar atrophy with minimal periventricular white matter changes of microvascul ar ischemia. No significant interval change in comparison with previous MRI Electronically signed by: Rob Sifuentes MD 11/30/2020 12:14 AM CDT Due to temporary technical issues with the PACS/Fluency reporting system, reports are being signed by the in house radiologist without review as a courtesy to ensure prompt reporting. The interpreting r adiologist is fully responsible for the content of the report.
--- NOTE | 2020-11-30 13:20 | RAD REPORT ---
EXAM DESCRIPTION: Chest Single View 11/30/2020 12:04 AM CDT CLINICAL HISTORY: 85 years, Male, AMS COMPARISON: None FINDINGS: Single view of the chest was obtained portable. No prior films are available for compariso n. The lung volume is slightly decreased. The cardiomediastinal silhouette demonstrate to be unremark able. The heart is not enlarged. The thoracic aorta demonstrate intimal calcification. There is a r ight IJ tunnel dialysis catheter in good position. Mild bilateral diaphragmatic elevations. No signif icant pleural effusions and/or focal areas of consolidation. Degenerative changes bilateral shoulders . The rest of the soft tissue and bony structures demonstrate to be unremarkable. IMPRESSION: No acute cardiopulmonary disease. Right IJ tunnel dialysis catheter in good position. Electronically signed by: Rob Sifuentes MD 11/30/2020 12:05 AM CDT Due to temporary technical issues with the PACS/Fluency reporting system, reports are being signed by the in house radiologist without review as a courtesy to ensure prompt reporting. The interpreting r adiologist is fully responsible for the content of the report.
[2020-11-30] MEDS ORDERED: WATER FOR INJ,STERILE 10 ML IM PRN (17:00)
[2020-11-30] MEDS ORDERED: ZIPRASIDONE MESYLA 20 MG/VIAL IM PRN (17:00)
--- NOTE | 2020-11-30 20:40 | P.SSS ---
Patient History Date of Service: 11/30/20 Reason for admission: CONFUSION, WEAKNESS History of Present Illness: MR. BARNES HAS NEPHROTIC SYNDROME ON HIGH DOSE OF STEROIDS AND CHEMO AGENT FOR CURING THE ISSUE. UNFORTUNATELY HE IS RAPIDLY GETTING WORSE, HE IS NOT EATING, HE HAS LOW ALBUMIN AND EDEMA FROM IT. HE IS WEAK, CONFUSED, NOT SHOWING ANY IMPROVEMENT. HIS FAMILY WANTS HIM ON HOSPICE. INITIALLY I WANTED TO GIVE HIME COUPLE OF MONTHS TO IMPROVE BUT I TEND TO AGREE WITH FAMILY THAT IT IS NOT WORTH LETTING HIM SUFFER ANY LONGER PER HIS WISHES. AND DAUGHTER ARE AT BEDSIDE. Allergies No Known Allergies Allergy (Verified 03/14/20 11:26) Home medications list reviewed: Yes Home Medications: Levothyroxine Sodium 1 tab PO DAILY 03/14/20 Tamsulosin HCl [Flomax] 1 cap PO DAILY 03/14/20 allopurinoL [Zyloprim*] 100 mg PO DAILY #90 tab 11/07/20 Dexamethasone [Decadron] 9 tab PO EVERY 7TH DAY 11/30/20 Escitalopram Oxalate 1 tab PO DAILY 11/30/20 Mycophenolate Mofetil [Cellcept] 1 tab PO BID 11/30/20 Pyridostigmine [place] [Mestinon*] 60 mg PO BID 11/30/20 predniSONE [Prednisone] 1 tab PO SEECOM 11/30/20 - Past Medical/Surgical History Diabetic: No -: htn -: HISTORY OF COLON CANCER, MANY YEARS AGO. SURGERY BY DR WILSON AND KURT . -: B12 DEFICIENCY -: OCULAR MYESTHENIA -: BPH -: AORTIC REGURGITATION- MILD -: HYPOTHYROIDISM -: PARTIAL COLECTOMY L SIDE- DR MAR- YEARS AGO. - Social History Smoking Status: Never smoker Alcohol use: Yes CD- Drugs: No Caffeine use: Yes Place of Residence: Home Review of Systems is unable to be obtained Physical Examination - Vital Signs Temperature: 96.9 F Blood Pressure: 160/70 Pulse: 65 Respirations: 15 Pulse Ox (%): 94 - Physical Exam General: Cachectic, Moderate distress, Confused, Unresponsive HEENT: Atraumatic, PERRLA, Mucous membr. moist/pink, EOMI, Sclerae nonicteric Neck: Supple, 2+ carotid pulse no bruit, No LAD, Without JVD or thyroid abnormality Respiratory: Clear to auscultation bilaterally, Normal air movement Cardiovascular: Regular rate/rhythm, Normal S1 S2 Gastrointestinal: Normal bowel sounds, No tenderness Musculoskeletal: No tenderness Integumentary: No rashes Neurological: Other (DISORIENTED WHILE AWAKE. ) Lymphatics: No axilla or inguinal lymphadenopathy - Studies Laboratory Data (last 24 hrs) 11/29/20 23:45: PT 10.2, INR 0.89, APTT 26.1 11/29/20 23:45: WBC 5.50, Hgb 8.8 L, Hct 27.0 L, Plt Count 158 11/29/20 23:45: Sodium 134 L, Potassium 3.7, BUN 36 H, Creatinine 3.46 H, Glucose 86, Total Bilirubin 0.4, AST 20, ALT 19, Alkaline Phosphatase 77 - Diagnosis (Problem(s)) (1) CKD (chronic kidney disease) stage 5, GFR less than 15 ml/min Current Visit: Yes Status: Acute Plan: SECONDARY TO NEPHROTIC SYNDROME. HE IS NOT IMPROVING AND FAMILY WANTS TO STOP DIALYSIS PER HIS WISHES AND LET HIM GO. HE IS TERMINAL IN MY OPINION AND WILL HAVE LESS THAN A WEEK TO SURVIVE. (2) Nephrotic syndrome Current Visit: No Status: Acute (3) Myasthenia gravis Current Visit: No Status: Chronic - Disposition Disposition: ROUTINE DISCHARGE
[2020-11-30 21:06] VITALS: O2SAT 98
[2020-11-30 21:36] LABS: MPV 8.6 fL (7.6-11.3)
[2020-11-30 22:09] LABS: Platelet Estimate ND
[2020-12-01] MEDS: D5 0.45 NS 1,000 ML IV SCH (01:49)
[2020-12-01 06:13] LABS: Absolute Lymphocytes (CBC) 0.5 K/uL (0.7-4.9); Basophils % 0.6 % (0-1.3); Lymphocytes % 13.3 % (15.3-44.8); MPV 9.1 fL (7.6-11.3); RBC Red Blood Cell Count 2.38 M/uL (4.33-5.43)
[2020-12-01 06:23] LABS: Albumin 1.2 g/dL (3.4-5.0); Bilirubin Total 0.4 mg/dL (0.2-1.0); Potassium 3.1 mmol/L (3.5-5.1); Protein, Total 3.6 g/dL (6.4-8.2)
[2020-12-01 06:31] LABS: Hematocrit 20.6 % (39.6-49.0)
[2020-12-01] MEDS: INSULIN -REGULAR HUMAN 50 UNIT/0.5 ML ML SQ SCH (07:30)
[2020-12-01] MEDS ORDERED: ENOXAPARIN 40 MG/0.4 ML SQ SCH (09:00)
[2020-12-01] MEDS ORDERED: ESCITALOPRAM 20 MG TAB PO SCH (09:00)
[2020-12-01] MEDS ORDERED: NA CHLORIDE 0.9% 250 ML ONE (11:41)
[2020-12-01 16:39] VITALS: BP 186/84; TEMP 97.6
[2020-12-02] MEDS ORDERED: ENOXAPARIN 30 MG/0.3 ML SQ SCH ×2 (09:00)
== END 2020-12-01 13:45 | disposition hospice, home (50) | DRG 682 ==
LOC: ER 23:20 → ERHOLD 11-30 02:40 → 2ND 11-30 04:53
PROVIDERS: ADMIT Internal Medicine; ATTEND Internal Medicine
PROC: 30233N1 Transfusion of Nonautologous Red Blood Cells into Peripheral Vein, Percutaneous Approach (ICD-10-PCS; principal; 2020-12-01)
DX: I12.0 Hypertensive chronic kidney disease with stage 5 chronic kidney disease or end stage renal disease (principal); N18.6 End stage renal disease; R64 Cachexia; Z68.1 Body mass index [BMI] 19.9 or less, adult; R44.0 Auditory hallucinations; G70.00 Myasthenia gravis without (acute) exacerbation; E03.9 Hypothyroidism, unspecified; T38.0X5A Adverse effect of glucocorticoids and synthetic analogues, initial encounter; T45.1X5A Adverse effect of antineoplastic and immunosuppressive drugs, initial encounter; R44.1 Visual hallucinations; Z79.890 Hormone replacement therapy; Z79.52 Long term (current) use of systemic steroids; Z85.038 Personal history of other malignant neoplasm of large intestine; Z79.899 Other long term (current) drug therapy; Z90.49 Acquired absence of other specified parts of digestive tract; Z99.2 Dependence on renal dialysis; Z20.822 Contact with and (suspected) exposure to COVID-19
CPT/HCPCS: 36415; 36430; 51702; 70450; 71045; 80048; 80053; 80076; 80307; 80320; 80329; 81003; 81015; 82140; 82947; 83880; 84484; 85025; 85049; 85610; 85730; 86850; 86900; 86901; 87086; 87088; 93005; 94760; 96374; 96375; 99284; 99285; J1650; J7050; J7799; P9016; U0003